=== PATIENT | male | born 1965 | race Caucasian/White ===

== ENCOUNTER 2016-08-08 20:02 | Inpatient (IN) | payer OTHER ==
[~2016-08-08] VITALS: Ht 180.3 cm; Wt 58.3 kg
--- NOTE | ~2016-08-08 | HC ---
[facility] [place] [address] CONSULTATION Name: LILOJASMINE Room #: 211-P [facility]#: [id number] Admission: 08/08/16 Attend Phys: Reyes Gunter MD Discharge: 08/09/16 Date of : 67 Report #: [id number] THIS REPORT FOR: //name// CC: PANDA physician/PCP Reyes Gunter INDICATION: Chest pains. HISTORY OF PRESENT ILLNESS: This is a 51-year-old gentleman presenting with recurrent chest pains. He initially presented on 07/19/2016 with an acute inferior wall UT, undergoing placement of a drug-eluting stent. Last hospitalization was unremarkable. He presented again about 10 days later with recurrent symptoms. He was found to have a subacute stent thrombosis, undergoing angioplasty with placement of another drug-eluting stent. He has a history of hypertension, hypercholesterolemia, and tobacco use. He reports that he is taking his medications. The cause of the subacute stent thrombosis is unclear. There is a question of compliance with his medications. He reports having recurrent symptoms that started yesterday morning. He had discomfort in the chest area, radiating down the left arm. He had associated symptoms of shortness of breath and nausea throughout the day. The first and second troponin is 0.32. It is unclear if this is an abnormal blood test from his last cardiac incident. There is no history of fever, chills, or congestion. PAST MEDICAL HISTORY: Initial UT in 2008, managed at [facility]. As above inferior wall UT on 07/19/2016 and 07/29/2016, hypertension, hypercholesterolemia, continued tobacco use, questionable history of compliance with medications. ALLERGIES: None. MEDICATIONS: Include Effient 10 mg daily, aspirin once a day, quinapril 20 mg daily, Lipitor 80 mg at night, Wellbutrin, Nexium 40 mg daily, metoprolol 25 mg daily. SOCIAL HISTORY: Positive tobacco use, currently smoking a pack a day. FAMILY HISTORY: Negative for premature CAD. REVIEW OF SYSTEMS: A full 10-point review of systems performed. Only the pertinent positives and negatives are described in the HPI. PHYSICAL EXAMINATION: VITAL SIGNS: Blood pressure is 110/60, heart rate is 56 beats per minute. GENERAL APPEARANCE: Disheveled-appearing male in no acute respiratory distress. HEAD AND EYES: Normocephalic. Sclerae are anicteric. ENT: Oral mucosa moist. NECK: Supple. [facility] [address] [place] [address] CONSULTATION Name: JASMINE NAGY David Room #: 211-P [facility]#: [id number] Admission: 08/08/16 Attend Phys: Reyes Gunter MD Discharge: 08/09/16 Date of : 67 Report #: [id number] LUNGS: Clear to auscultation. CARDIAC: Regular rate and rhythm, S1, S2 positive. ABDOMEN: Soft. EXTREMITIES: No major joint deformities. No edema. ECG reveals sinus bradycardia, Q-waves in the inferior leads with nonspecific ST-T wave abnormalities. LABORATORY VALUES: Peak troponin is 0.32. Sodium is 143, creatinine is 0.7. White count 7.3, hemoglobin 14.3. ASSESSMENT: 1. Chest pain syndrome, rule out recurrent ischemia versus noncardiac etiology. His symptoms are the same as his previous presentation. Since he has already exhibited an episode of subacute stent thrombosis, I am concerning that this may be cardiac in etiology. We discussed the pros and cons of a cardiac catheterization. He understands and wishes to proceed. 2. Hypertension. The blood pressure is under control. 3. Hypercholesterolemia, tolerating statin therapy. 4. Tobacco use, complete smoking cessation is again discussed. Thank you for allowing me to participate in the care of your patient. <ELECTRONICALLY SIGNED> By: Boom Fink MD 08/10/16 0833 0836 1029 Boom Fink MD /nt
--- NOTE | ~2016-08-08 | EKG ---
[address] [address] [facility] [place] [address] ELECTROCARDIOGRAM REPORT Name: JASMINE NAGY Room #: 211-P ADM IN M.R.#: [id number] Admission: 08/08/16 Attend Phys: Reyes Gunter MD Discharge: Date of : 67 Report #: [id number] THIS REPORT FOR: //name// [facility] ED Test Date: 2016-08-08 Test Time: 20:07:45 Pat Name: JASMINE NAGY Department: Room: 211 Gender: M Call Center Team Leader: [id number] : 1965 Requested By: Keiry Portillo Order Number: [id number] MD: Иван Shepard Measurements Intervals [place] Rate: 73 P: 81 NC: 161 QRS: 12 QRSD: 118 T: -72 QT: 423 QTc: 467 Interpretive Statements Sinus rhythm Biatrial enlargement LVH with IVCD and secondary repol abnrm Inferior infarct, age indeterminate Electronically Signed On 08-09-2016 8:09:57 RIB KNITTER by Иван Shepard [email or web address] <ELECTRONICALLY SIGNED> By: Иван Shepard MD 08/09/16808 06 06 Иван Shepard MD /SAAD
--- NOTE | ~2016-08-08 | CATHLAB ---
[facility] [address] [employer] [place] [address] INVASIVE PROCEDURE REPORT Name: JASMINE NAGY Room #: 211-P [facility]#: [id number] Admission: 08/08/16 Attend Phys: Reyes Gunter MD Discharge: 08/09/16 Date of : 67 Date of Service: 08/09/16 1533 Report #: [id number] THIS REPORT FOR: //name// CC: [facility] physician/PCP Reyes Gunter INDICATIONS: Unstable angina. Full risks, benefits and alternatives of cardiac catheterization were explained to the patient. All questions were answered. Informed consent was obtained. A Barbeau test was performed on the right radial artery. The right wrist area was prepped and draped in a sterile manner. Lidocaine was given subcutaneously. A 5-Mongolian sheath was inserted into the right radial artery via modified Seldinger technique. Nitroglycerin and verapamil was injected through the sheath. 5000 units of heparin was given through peripheral IV. CORONARY ANATOMY: Left main artery is a large caliber vessel with mild disease in the mid segment. The LAD is a moderate sized caliber vessel, travelling down the anterior wall and wrapping around the apex. The mid segment of the LAD has mild disease, 30%. The first diagonal artery is a moderate size caliber vessel, giving off 2 moderate sized branches, with no flow-limiting lesions. The second diagonal artery is a moderate size caliber vessel, with no flow-limiting lesions. The left circumflex artery gives off one small obtuse marginal artery. There is a moderate to severe proximal stenosis in the first obtuse marginal artery, 60-70%. Medical therapy is recommended. The RCA is a dominant vessel with patent overlapping stents in the distal segment. There is no evidence for restenosis. There is mild disease in the proximal and mid segments of the RCA, 30%. A left ventriculogram was not performed in view of a recent ventriculogram. The LVEDP is approximately 16 mmHg. There is no gradient across the outflow tract. IMPRESSION: 1. Patent stents in the RCA. 2. Moderate to severe stenosis in a small first obtuse marginal artery, unchanged from prior procedures. Recommend medical therapy. [facility] [address] [place] [address] INVASIVE PROCEDURE REPORT Name: JASMINE NAGY David Room #: 211-P [facility] IN [facility].#: [id number] Admission: 08/08/16 Attend Phys: Reyes Gunter MD Discharge: 08/09/16 Date of : 67 Date of Service: 08/09/16 1533 Report #: [id number] 3. Mild disease noted in the LAD and right coronary artery. 4. Recommend medical therapy. <ELECTRONICALLY SIGNED> By: Boom Fink MD 08/10/16 0833 1533 21 Boom Fink MD /rj
--- NOTE | ~2016-08-08 | EKG ---
[address] [address] ELECTROCARDIOGRAM REPORT Name: ANDRA NAGYAKUA Hernandez Room #: 211-P ADM IN M.R.#: [id number] Admission: 08/08/16 Attend Phys: Reyes Gunter MD Discharge: Date of : 67 Report #: [id number] THIS REPORT FOR: //name// [facility] Test Date: 2016-08-09 Test Time: 07:00:45 Pat Name: JASMINE NAGY Department: Room: 211 Gender: M Steam Table Associate: valentin : 1965 Requested By: Keiry Portillo Order Number: [id number] MD: Sushil Hall Measurements Intervals [place] Rate: 56 P: 73 IA: 163 QRS: -5 QRSD: 108 T: -38 QT: 456 QTc: 441 Interpretive Statements Sinus rhythm RSR' in V1 or V2, right VCD or RVH Left ventricular hypertrophy Inferior infarct, age indeterminate Anterior repolarization abnormality Compared to ECG 07/31/2016 07:09:01 No significant change was found Electronically Signed On 08-09-2016 8:12:27 MANAGER TRANSITION by Sushil Hall [email or web address] <ELECTRONICALLY SIGNED> By: Sushil Hall MD, FACC 08/09/16811 9 9 Sushil Hall MD, [facility] /EPI
[~2016-08-08 20:02] MED LIST: ASPIRIN325 PO; ATORVASTATIN CA40 MG PO; EFFIENT10 MG PO; IMDUR 60 MG TAB60 M1 PO; LOPRESSOR25 PO; NEXIUM40 MG PO; NITROGLYCERIN0.4 MG SUBLING; NORVASC 5 MG TAB5 MG PO; PLAVIX 75 MG TA75 M1 PO; QUINAPRIL 20 MG20 MG PO; RANEXA500 MG PO; WELLBUTRIN SR150 MG PO
[2016-08-08 20:04] VITALS: BP 134/83
[2016-08-08 21:12] LABS: HEMATOCRIT 42.8 % (42.0-52.0); HEMOGLOBIN 14.3 gm/dL (14.0-18.0); MCH 29.6 pg (26.0-34.0); MCHC 33.5 % (28.0-37.0); MCV 88.4 fL (80.0-100.0); RBC 4.84 mil/uL (4.50-6.00); RDW 14.6 % (10.5-14.5); WBC 7.3 thou/uL (4.0-11.0)
[2016-08-08 21:29] LABS: CALCIUM 8.5 mg/dL (8.5-10.1); CREATININE 0.7 mg/dL (0.6-1.3); POTASSIUM 3.2 mmol/L (3.5-5.1)
[2016-08-08 21:39] LABS: ALBUMIN 3.5 g/dL (3.4-5.0); TOTAL BILIRUBIN 0.2 mg/dL (<0.1-1.0); TOTAL PROTEIN 7.3 g/dL (6.4-8.2); TROPONIN-I 0.32 ng/mL (<0.04-0.07)
[2016-08-08 22:30] VITALS: BP 108/65
[2016-08-08 22:50] VITALS: BP 114/75
[2016-08-09 04:08] VITALS: BP 116/71
[2016-08-09 04:09] LABS: CALCIUM 8.3 mg/dL (8.5-10.1); CREATININE 0.7 mg/dL (0.6-1.3); MAGNESIUM 2.4 mg/dL (1.8-2.4); POTASSIUM 3.6 mmol/L (3.5-5.1)
[2016-08-09 07:20] VITALS: BP 138/89
[2016-08-09 11:00] VITALS: BP 115/72
[2016-08-09 13:11] LABS: TSH 0.8 uIU/mL (0.450-4.500)
[2016-08-09 16:00] VITALS: BP 118/68
[2016-08-09 16:19] VITALS: BP 115/72
[2016-08-09 18:23] VITALS: BP 115/72
[2016-09-17] MEDS ORDERED: ULTRAM 50MG TAB50 MG PO (22:36)
[2016-09-17] MEDS ORDERED: KEFLEX500 MG PO (22:37)
[2016-09-26] MEDS ORDERED: NORCO 5-325 TA1 EACH PO (21:57)
[2016-10-06] MEDS ORDERED: RANEXA500 MG PO (10:25)
== END 2016-08-09 18:22 | disposition home or self-care (01) | DRG 206 ==
LOC: ER 20:02 → 2N 22:19 → EROBS 22:19 → 2N 22:30 → ER 22:30 → 2N 23:11
PROVIDERS: Nurse Practitioner; Physician Assistant
PROC: B2111ZZ Fluoroscopy of Multiple Coronary Arteries using Low Osmolar Contrast (ICD-10-PCS; principal; 2016-08-09)
PROC: 4A023N7 Measurement of Cardiac Sampling and Pressure, Left Heart, Percutaneous Approach (ICD-10-PCS; principal; 2016-08-09)
DX: M94.0 Chondrocostal junction syndrome [Tietze] (principal); J44.9 Chronic obstructive pulmonary disease, unspecified; I25.10 Atherosclerotic heart disease of native coronary artery without angina pectoris; I11.9 Hypertensive heart disease without heart failure; F17.210 Nicotine dependence, cigarettes, uncomplicated; E78.00 Pure hypercholesterolemia, unspecified; E78.5 Hyperlipidemia, unspecified; E87.6 Hypokalemia; I25.2 Old myocardial infarction; Z79.899 Other long term (current) drug therapy
CPT/HCPCS: 10081

== ENCOUNTER 2016-08-16 16:11 | Inpatient (IN) | payer OTHER ==
[~2016-08-16] VITALS: Ht 180.3 cm; Wt 61.1 kg
--- NOTE | ~2016-08-16 | H ---
[facility] [place] [address] HISTORY AND PHYSICAL Name: JASMINE NAGY David Room #: 456-P [facility] IN ..#: [id number] Admission: 08/16/16 Attend Phys: Dylan Laguna MD Discharge: 08/19/16 Date of : 67 Report #: [id number] THIS REPORT FOR: //name// CC: Dylan Laguna Luz Ortizkraig DATE OF SERVICE: 08/16/2016 TYPE OF DICTATION: Admission H and P after [id number]-prcc encounter. CHIEF COMPLAINT: Chest pain. HISTORY OF PRESENT ILLNESS: The patient is a 51-year-old male who had non-STEMI in July and had a stent placed to the distal dominant right coronary artery on 07/19/2016. The patient was again re-admitted on July 29 for recurrent chest pain and was taken to the catheterization lab. He was noted to have restenosis from the thrombus to the RCA stent and according to cardiology notes the restenosis was dilated and the patient's chest pain resolved and he was sent home, but he came for the third time on August 09 with chest pain and was admitted to the hospital and his chest pain was cleared with normal troponins. Now, he is coming with chest pain, retrosternal, which started this morning, pressure in nature, radiating to the left arm. He says that he is short of breath all the time, but no sweating. The patient denies any nausea, vomiting, diarrhea or constipation. REVIEW OF SYSTEMS: Except that mentioned in HPI, all other systems are negative. PAST MEDICAL HISTORY: Includes: 1. Acute inferior wall myocardial infarction, status post stents. 2. Hypertension. 3. Hyperlipidemia. PAST SURGICAL HISTORY: 1. Stents placed in the coronary artery. 2. Prior eye surgery. SOCIAL HISTORY: He is a tobacco user. No alcohol or drugs. FAMILY HISTORY: Noncontributory. MEDICATIONS: See admission reconciliation sheet. ALLERGIES: No known drug allergies. LABORATORY DATA: From today, his white count is 5.7, hemoglobin 14.8, [facility] [address] [place] [address] HISTORY AND PHYSICAL Name: JASMINE NAGY Room #: 456-P [facility].#: [id number] Admission: 08/16/16 Attend Phys: Dylan Laguna MD Discharge: 08/19/16 Date of : 67 Report #: [id number] hematocrit 44.1, platelets 326, BMP is normal. First troponin is negative. ProBNP is 483, creatinine 0.9. Chest x-ray is clear. Electrocardiogram showed old infarction. PHYSICAL EXAMINATION: GENERAL: He is alert, oriented, not in acute distress. VITAL SIGNS: Temperature 36.7, pulse 61, respirations 17 and blood pressure 114/87. HEENT: PERRLA. Intact extraocular muscles. No icterus. NECK: Supple, no JVD, no bruit, no thyroid. CHEST: Good air entry, both sides. Normal respiratory effort. CARDIOVASCULAR: Regular rate and rhythm. No murmur, rub or gallop. ABDOMEN: Lax, nontender, positive bowel sounds, no organomegaly appreciated. NEUROLOGIC: Cranial nerves 2-12 are intact. No focal neurological signs. ASSESSMENT AND PLAN: 1. Chest pain. The patient is going to be admitted to telemetry. Serial troponin and EKGs are going to be done and cardiology were going to see the patient in the morning. We are going to continue his home medicines for now and giving him aspirin. 2. Hypertension, seems to be controlled. Continue home medicines. 3. Hyperlipidemia. Continue statins for now. 4. The patient is full code. 5. Gastrointestinal and deep venous thrombosis prophylaxis. <ELECTRONICALLY SIGNED> By: Dylan Laguna MD 08/25/16 0900 1808 1833 Dylan Laguna MD /nt
--- NOTE | ~2016-08-16 | EKG ---
[address] [address] ELECTROCARDIOGRAM REPORT Name: JASMINE NAGY David Room #: 160-1 ADM IN M.R.#: [id number] Admission: 08/16/16 Attend Phys: Dylan Laguna MD Discharge: Date of : 67 Report #: [id number] THIS REPORT FOR: //name// [facility] Test Date: 2016-08-17 Test Time: 06:48:23 Pat Name: JASMINE NAGY Department: Room: 160 Gender: M Foot Caster: . : 1965 Requested By: Dylan Laguna Order Number: [id number] MD: Sushil Hall Measurements Intervals [place] Rate: 53 P: 0 DE: 171 QRS: 4 QRSD: 110 T: -48 QT: 458 QTc: 430 Interpretive Statements Sinus bradycardia Inferior infarct, age indeterminate Compared to ECG 08/16/2016 16:20:54 No significant change was found Electronically Signed On 08-17-2016 7:59:29 HAIR CUTTER by Sushil Hall [email or web address] <ELECTRONICALLY SIGNED> By: Sushil Hall MD, [facility] 08/17/16 0759 Sushil Hall MD, [facility] /EPI
--- NOTE | ~2016-08-16 | P ---
[facility] [place] [address] PROCEDURE REPORT Name: JASMINE NAGY David Room #: 456-P [facility]..#: [id number] Admission: 08/16/16 Attend Phys: Dylan Laguna MD Discharge: 08/19/16 Date of : 67 Report #: [id number] THIS REPORT FOR: //name// CC: Dylan Veronica MD DATE OF SERVICE: 08/19/2016 PROCEDURE: Diagnostic EGD. Patient of Dr. Laguna. INDICATION FOR PROCEDURE: This procedure is being done to evaluate the patient's chest pain. It appears that he has no evidence of any cardiac disease that would explain his chest pain. He has been on antiplatelet medications up until yesterday, so he really cannot take any biopsies if we find anything, but evaluation is being undertaken to see if there is an esophageal etiology of this chest pain. Informed consent for this procedure was obtained prior to the administration of any medication. The risks of the procedure which include bleeding, perforation, infection, complications of sedation and the possibility I could miss something have been explained to the patient. He has indicated his consent by signing. Propofol was slowly titrated before and during this procedure for patient comfort by the anesthesia service. The MyFabn upper videoscope was introduced through the upper esophageal sphincter and advanced under direct visualization to the descending duodenum. Findings are noted on withdrawal of the scope. The entire duodenum shows scattered erosions and edema as well as erythema. No biopsies are taken as the patient has been on antiplatelet drugs. Stomach, diffuse erosive gastritis is noted. It is worse distally. No biopsies were taken. I suspect the patient does have a sliding hiatal hernia. Scope was withdrawn into the esophagus. The Z line is located at 42 cm and is very irregular. I suspect he may have Gutierrez's ectopic mucosa, but will not biopsy it today because of his antiplatelet drugs. Above the Z line, the mucosa lining of the esophagus appears normal. It does not appear to be hyperspastic in any way. The scope was withdrawn. The patient went to the recovery area in stable condition. He tolerated the procedure well. IMPRESSION: 1. Erosive gastroduodenitis. 2. Suspect hiatal hernia. This may be the etiology of his chest pain. 3. 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 [facility] [address] [place] [address] PROCEDURE REPORT Name: JASMINE NAGY David Room #: 456-P [facility]#: [id number] Admission: 08/16/16 Attend Phys: Dylan Laguna MD Discharge: 08/19/16 Date of : 67 Report #: [id number] RECOMMENDATIONS: To add Carafate slurry 1 gram p.o. a.c. and at bedtime. We will start him on a soft diet. We will repeat an EGD when he can be off his antiplatelet medications for a few days, so we could biopsy the distal esophagus to check the Gutierrez's esophagus for dysplasia. Thank you very much once again for allowing me to participate in his care, Dr. Laguna and Dr. Veronica. <ELECTRONICALLY SIGNED> By: Kareen Austin DO 08/19/162023 1213 1338 Kareen Austin DO /nt
--- NOTE | ~2016-08-16 | EKG ---
[address] [address] ELECTROCARDIOGRAM REPORT Name: JASMINE NAGY David Room #: 160-1 ADM IN M.R.#: [id number] Admission: 08/16/16 Attend Phys: Dylan Laguna MD Discharge: Date of : 67 Report #: [id number] THIS REPORT FOR: //name// [facility] Test Date: 2016-08-17 Test Time: 05:52:52 Pat Name: JASMINE NAGY Department: Room: 160 Gender: M Community Relations Police Lieutenant: bronwyn : 1965 Requested By: Dylan Laguna Order Number: [id number] MD: Sushil Hall Measurements Intervals [place] Rate: 50 P: 43 MI: 175 QRS: 10 QRSD: 99 T: -41 QT: 477 QTc: 435 Interpretive Statements Sinus bradycardia Inferior infarct, recent Compared to ECG 08/16/2016 16:20:54 No significant change was found Electronically Signed On 08-17-2016 7:58:44 RESPONDER by Sushil Hall [email or web address] <ELECTRONICALLY SIGNED> By: Sushil Hall MD, [facility] 08/17/16 0758 0552 0552 Sushil Hall MD, [facility] /EPI
--- NOTE | ~2016-08-16 | EKG ---
[address] [address] [place] [address] ELECTROCARDIOGRAM REPORT Name: JASMINE NAGY Room #: REG [facility]#: [id number] Admission: 08/16/16 Attend Phys: Discharge: Date of : 67 Report #: [id number] THIS REPORT FOR: //name// [facility] Test Date: 2016-08-16 Test Time: 16:20:54 Pat Name: JASMINE NAGY Department: Room: Gender: Vp Analytics: Jaqui ZAMORANO : 1965 Requested By: Ralph Woods Order Number: [id number] MD: Иван Shepard Measurements Intervals [place] Rate: 63 P: 29 [place]: 149 QRS: -3 QRSD: 101 T: -57 QT: 440 QTc: 451 Interpretive Statements Sinus rhythm RSR' in V1 or V2, probably normal variant Left ventricular hypertrophy Inferior infarct, age indeterminate ST elevation,likely early repolarization Electronically Signed On 08-16-2016 17:27:04 GUNITE MIXER by Иван Shepard [email or web address] <ELECTRONICALLY SIGNED> By: Иван Shepard MD 08/16/16 1727 1620 19 Иван Shepard MD /SAAD
--- NOTE | ~2016-08-16 | HC ---
[facility] [place] [address] CONSULTATION Name: JASMINE NAGY David Room #: 456-P [facility]..#: [id number] Admission: 08/16/16 Attend Phys: Dylan Laguna MD Discharge: 08/19/16 Date of : 67 Report #: [id number] THIS REPORT FOR: //name// CC: Dylan Laguna Luz Ortizuri DATE OF SERVICE: 08/16/2016 REASON FOR CONSULTATION: Chest pain with ECG changes. HISTORY OF PRESENT ILLNESS: This is a 51-year-old gentleman who has been admitted to the hospital every week for the last 3 weeks for his chest discomforts. He has had a stent re-occlusion previously and although he denies missing his medications, stent had been apparently well deployed previously. He had been discharged home and had been doing well for less than a week, when he started having chest discomfort 2 days prior to admission. He says this radiated into the left arm. The patient stated that this was at least a 5-7/10 and had been fairly constant. He did eat some spicy foods on that morning, but he does take Nexium already. He denies any orthopnea or PND. No fever, chills or night sweats. PAST MEDICAL HISTORY: Significant for: 1. Coronary artery disease, status post stenting, both in the LAD and in the right coronary artery. 2. Hypertension. 3. COPD. PAST SURGICAL HISTORY: Significant for: 1. Eye surgery. 2. Jaw surgery. ALLERGIES: No known drug allergies. MEDICATIONS AT HOME: Effient 10 mg daily, Nexium, quinapril, atorvastatin, Wellbutrin, Lopressor, Nitrostat p.r.n. and aspirin. SOCIAL HISTORY: The patient is a former smoker. He consumes alcohol socially. He does not follow particular exercise regimen or dietary restriction. FAMILY HISTORY: Significant for coronary artery disease. LABORATORY DATA: Noted and reviewed in the chart. Pertinent labs in the records have a BUN and creatinine of 18 and 0.9, potassium 3.9. H and H are 14.8 and 44.1. Initial troponin is at less than 0.04. ELECTROCARDIOGRAM: Sinus rhythm, slightly more prominent ST-segment elevation [facility] [address] [place] [address] CONSULTATION Name: JASMINE NAGY Room #: 456-[facility] IN [facility].#: [id number] Admission: 08/16/16 Attend Phys: Dylan Laguna MD Discharge: 08/19/16 Date of : 67 Report #: [id number] in the epicardial leads. RADIOLOGIC: Chest x-ray fails to demonstrate any acute processes. REVIEW OF SYSTEMS: Except for symptoms previously mentioned and those commensurate with comorbid state, the 10-point review of system is negative. PHYSICAL EXAMINATION: GENERAL: A well-developed white male, in moderate distress (6-7/10 pain). VITAL SIGNS: Noted and reviewed in the chart. HEENT: Normocephalic, atraumatic. Pupils are equal, round, reactive to light and accommodation. Extraocular muscles are intact. Sclerae and conjunctivae are anicteric. NECK: JVD is normal. Carotid upstrokes are bilaterally symmetrical. No bruits are heard. No thyromegaly. No lymphadenopathy. LUNGS: Clear to auscultation. No wheezes, rhonchi or crackles. No CVA tenderness. CARDIAC: Demonstrates a regular rhythm. Normal first and second heart sounds. No ventricular or atrial gallops, no rubs noted. No murmurs. No lifts or heaves, PMI normal. ABDOMEN: Soft, nontender, nondistended. Normal bowel sounds. EXTREMITIES: Without cyanosis, clubbing or edema. Distal pulses are intact. DTR symmetrical. NEUROLOGIC: Cranial nerves 2-12 are grossly normal and symmetrical. PSYCHIATRIC: Alert, oriented with normal affect. SKIN: Warm and dry. IMPRESSION: 1. Individual with significant coronary artery disease. It had been mentioned previously by cardiology that he had not been consistent in taking his medications, but the patient states he has. Either way, he has some slight changes in his ST segments. He has recurrent symptomatology and although his troponins were negative, we are going to need to evaluate to make sure that there is no restenosis once again. We will proceed directly with angiography. Risks, complications and alternatives of cath, angioplasty and conscious sedation were discussed with the patient, who understands and wishes to proceed. 2. Hypertension. This may be an issue with the symptoms. I am going to discuss with the patient proceeding with blood pressure checks at home so that we can be certain that those are not a factor in the symptomatology. <ELECTRONICALLY SIGNED> By: Norm Walls MD 08/20/16 1154 1058 1308 Norm Walls MD /nt
--- NOTE | ~2016-08-16 | CATHLAB ---
[facility] Waqas [place] [address] INVASIVE PROCEDURE REPORT Name: JASMINE NAGY Room #: 456-P [facility]#: [id number] Admission: 08/16/16 Attend Phys: Dylan Laguna, Discharge: 08/19/16 Date of : 67 Date of Service: 08/20/16 0720 Report #: [id number] THIS REPORT FOR: //name// CC: Dylan Herreranica Glenys DATE OF SERVICE: 08/17/2016 LEFT HEART CATHETERIZATION INDICATIONS: This is an 51-year-old male patient with previous stenting and stent reocclusion last 2 weeks, presents with unstable angina with slight J-point elevation and ST-segment elevation on ECG. PROCEDURES: 1. Left heart catheterization. 2. Selective right and left coronary angiography. 3. Measurement of left ventricular end-diastolic pressures. 4. Supervision of conscious sedation. CASEY SAW OPERATOR: Norm Walls M.D. BRIEF DESCRIPTION OF PROCEDURE: After informed consent was obtained, the patient was brought to the cardiac catheterization laboratory in stable condition. The patient's right groin was prepped and draped in the usual sterile manner after which lidocaine was then instilled. Utilizing a modified Seldinger technique, the right femoral artery was then accessed. Under fluoroscopic visualization using selective coronary catheters, the right and left coronaries were opacified and visualized. The left ventriculogram was likewise imaged per standard protocol with EDP being measured. Subsequent to this, the sheath was removed, hemostasis achieved. The patient tolerated the procedure well. There were no complications. FINDINGS: 1. HEMODYNAMICS: a. Preprocedure aortic pressure 142/75. b. Left ventricular end-diastolic pressures of 22-25. 2. FLUOROSCOPY: Under fluoroscopic visualization, there was evidence of prior stents in place as well as epicardial coronary artery calcifications. 3. ANGIOGRAPHY: This is a right coronary dominant system. a. Left main is of normal origin and caliber, has luminal irregularities of 30% throughout its course, with no obstructive lesions present. b. Left anterior descending is a moderate-caliber to small-caliber type 3 vessel which courses in the anterior interventricular sulcus. It gives rise to septal perforators and diagonal branches which are also small and have only moderate stenosis noted. A small second diagonal branch has approximately 70% [facility] [address] [place] [address] INVASIVE PROCEDURE REPORT Name: JASMINE NAGY Room #: 456-P [facility]#: [id number] Admission: 08/16/16 Attend Phys: Dylan Laguna, Discharge: 08/19/16 Date of : 67 Date of Service: 08/20/16 0720 Report #: [id number] ostial and proximal lesion, after which it reconstitutes itself. This vessel is less than 1 mm in diameter. The LAD courses tapering to a small string-appearing vessel as it hooks the apex and terminates in the bifurcating vessel in the posterior apical wall. c. Left circumflex is a small non-dominant vessel, which has a marginal branch which is less than 1 mm in diameter and has proximal 80%-90% stenosis. d. Right coronary artery is of normal origin and caliber, proceeds in the AV groove with luminal irregularities of less than 40%. It then proceeds beyond the acute marginal where the stent is widely patent and non-flow limiting. There is no thrombus noted. It continues on giving rise to posterior descending artery, which is ruhyp-tj-ybkzufzh in caliber with luminal irregularities present. The distal right coronary artery is a diminutive vessel with moderate nonobstructive lesions. IMPRESSION: 1. Coronary artery disease, status post stenting with patent stents, but with diminutive vessel with lesions noted in these. 2. Abnormal hemodynamics. <ELECTRONICALLY SIGNED> By: Norm Walls MD 08/20/16 1152 0720 1003 Norm Walls MD /nt
--- NOTE | ~2016-08-16 | EKG ---
[address] [place] [address] ELECTROCARDIOGRAM REPORT Name: JASMINE NAGY David Room #: 160-1 ADM IN M.R.#: [id number] Admission: 08/16/16 Attend Phys: Dylan Laguna MD Discharge: Date of : 67 Report #: [id number] THIS REPORT FOR: //name// [facility] Test Date: 2016-08-16 Test Time: 21:19:51 Pat Name: JASMINE NAGY Department: Room: 160 Gender: M Hull And Deck Remover: Grace STEVE : 1965 Requested By: Dylan Laguna Order Number: [id number] MD: Sushil Hall Measurements Intervals [place] Rate: 49 P: 30 [place]: 172 QRS: -6 QRSD: 104 T: -48 QT: 479 QTc: 433 Interpretive Statements Sinus bradycardia Probable left ventricular hypertrophy Inferior infarct, recent Compared to ECG 08/16/2016 16:20:54 No significant change was found Electronically Signed On 08-17-2016 7:48:13 OBSTETRICS GYNECOLOGY MD by Sushil Hall [email or web address] <ELECTRONICALLY SIGNED> By: Sushil Hall MD, [facility] 08/17/16 0748 18 18 Sushil Hall MD, [facility] /EPI
[2016-08-16 16:12] VITALS: BP 123/71
[2016-08-16 16:30] LABS: ABSOLUTE NEUTROPHILS 3.2 thou/uL (1.4-8.2); BASOPHILS 0.4 % (0.0-2.0); EOSINOPHILS 3.6 % (0.0-3.0); HEMATOCRIT 44.1 % (42.0-52.0); HEMOGLOBIN 14.8 gm/dL (14.0-18.0); LYMPHOCYTES 31.5 % (24.0-44.0); MCH 30.3 pg (26.0-34.0); MCHC 33.6 % (28.0-37.0); MCV 90.3 fL (80.0-100.0); MONOCYTES 8.9 % (1.0-8.0); PLATELET COUNT 326 thou/uL (150-400); POLYS 55.6 % (36.0-66.0); RBC 4.88 mil/uL (4.50-6.00); RDW 14.9 % (10.5-14.5); WBC 5.7 thou/uL (4.0-11.0)
[2016-08-16 16:35] LABS: MANUAL DIFF NO
[2016-08-16 16:40] LABS: ANION GAP 10 mmol/L (7-16); BUN 15 mg/dL (7-18); CALCIUM 8.6 mg/dL (8.5-10.1); CHLORIDE 100 mmol/L (98-107); CO2 27 mmol/L (21-32); CREATININE 0.9 mg/dL (0.6-1.3); GLUCOSE 108 mg/dL (70-99); POTASSIUM 3.9 mmol/L (3.5-5.1); SODIUM 137 mmol/L (136-145)
[2016-08-16 16:53] LABS: NT-PRO BRAIN NAT PEPTIDE 483 pg/mL (<300); TROPONIN-I < 0.04 ng/mL (<0.04-0.07)
[2016-08-16 19:12] VITALS: BP 115/77
[2016-08-16 20:42] VITALS: BP 135/75
[2016-08-16 23:56] VITALS: BP 98/65
[2016-08-17] VITALS (11 sets, daily range): BP systolic 106–142; BP diastolic 60–100
[2016-08-17 04:42] LABS: HEMATOCRIT 43.7 % (42.0-52.0); HEMOGLOBIN 14.3 gm/dL (14.0-18.0); MCH 30.1 pg (26.0-34.0); MCHC 32.8 % (28.0-37.0); MCV 91.7 fL (80.0-100.0); RBC 4.76 mil/uL (4.50-6.00); RDW 14.7 % (10.5-14.5); WBC 5.8 thou/uL (4.0-11.0)
[2016-08-17 05:00] LABS: ALBUMIN 3.3 g/dL (3.4-5.0); CALCIUM 8.4 mg/dL (8.5-10.1); CREATININE 0.9 mg/dL (0.6-1.3); POTASSIUM 4.4 mmol/L (3.5-5.1); TOTAL BILIRUBIN 0.3 mg/dL (<0.1-1.0); TOTAL PROTEIN 6.6 g/dL (6.4-8.2)
[2016-08-18 05:26] LABS: ABSOLUTE NEUTROPHILS 5.1 thou/uL (1.4-8.2); EOSINOPHILS 2.5 % (0.0-3.0); HEMOGLOBIN 13.6 gm/dL (14.0-18.0); LYMPHOCYTES 23.1 % (24.0-44.0); MCH 30.2 pg (26.0-34.0); MCHC 33.2 % (28.0-37.0); MCV 90.8 fL (80.0-100.0); MONOCYTES 7.6 % (1.0-8.0); PLATELET COUNT 287 thou/uL (150-400); POLYS 65.8 % (36.0-66.0); RBC 4.52 mil/uL (4.50-6.00); RDW 15.4 % (10.5-14.5); WBC 7.8 thou/uL (4.0-11.0)
[2016-08-18 05:40] LABS: MANUAL DIFF NO
[2016-08-18 06:19] LABS: ALBUMIN 3.3 g/dL (3.4-5.0); CALCIUM 8.4 mg/dL (8.5-10.1); CREATININE 0.9 mg/dL (0.6-1.3); POTASSIUM 4.6 mmol/L (3.5-5.1); TOTAL BILIRUBIN 0.3 mg/dL (<0.1-1.0); TOTAL PROTEIN 6.6 g/dL (6.4-8.2)
[2016-08-18 07:56] VITALS: BP 106/69
[2016-08-18 11:29] VITALS: BP 106/69
[2016-08-18 15:48] VITALS: BP 106/54
[2016-08-18 19:51] VITALS: BP 101/54
[2016-08-19 04:40] VITALS: BP 107/60
[2016-08-19 07:15] VITALS: BP 117/67
[2016-08-19 13:15] VITALS: BP 124/81
[2016-08-19 14:15] VITALS: BP 124/81
[2016-09-17] MEDS ORDERED: ULTRAM 50MG TAB50 MG PO (22:36)
[2016-09-17] MEDS ORDERED: KEFLEX500 MG PO (22:37)
[2016-09-26] MEDS ORDERED: NORCO 5-325 TA1 EACH PO (21:57)
[2016-10-06] MEDS ORDERED: RANEXA500 MG PO (10:25)
== END 2016-08-19 15:07 | disposition home or self-care (01) | DRG 392 ==
LOC: ER 16:11 → 4W 18:01 → EROBS 18:01 → 4W 18:58 → TBACV 08-17 07:27 → 4W 08-17 10:03
PROVIDERS: Hospitalist; Internal Medicine; Nurse Practitioner; Nurse Practitioner Family
PROC: 4A023N7 Measurement of Cardiac Sampling and Pressure, Left Heart, Percutaneous Approach (ICD-10-PCS; principal; 2016-08-17)
PROC: B2111ZZ Fluoroscopy of Multiple Coronary Arteries using Low Osmolar Contrast (ICD-10-PCS; principal; 2016-08-17)
PROC: 0DJ08ZZ Inspection of Upper Intestinal Tract, Via Natural or Artificial Opening Endoscopic (ICD-10-PCS; 2016-08-19)
DX: K29.90 Gastroduodenitis, unspecified, without bleeding (principal); I24.9 Acute ischemic heart disease, unspecified; K22.4 Dyskinesia of esophagus; K21.9 Gastro-esophageal reflux disease without esophagitis; J44.9 Chronic obstructive pulmonary disease, unspecified; I25.10 Atherosclerotic heart disease of native coronary artery without angina pectoris; E78.5 Hyperlipidemia, unspecified; I11.0 Hypertensive heart disease with heart failure; I50.9 Heart failure, unspecified; K29.00 Acute gastritis without bleeding; Z79.82 Long term (current) use of aspirin; Z79.899 Other long term (current) drug therapy; Z87.891 Personal history of nicotine dependence; Z95.5 Presence of coronary angioplasty implant and graft; Z28.21 Immunization not carried out because of patient refusal; Z82.49 Family history of ischemic heart disease and other diseases of the circulatory system; K44.9 Diaphragmatic hernia without obstruction or gangrene
CPT/HCPCS: 10045; 62110; 62900; 70005

== ENCOUNTER 2016-11-08 17:38 | Emergency (ER) | payer OTHER ==
[~2016-11-08] VITALS: Ht 180.3 cm; Wt 63.5 kg
--- NOTE | ~2016-11-08 | EKG ---
[place] [address] [address] [facility] [place] [address] ELECTROCARDIOGRAM REPORT Name: JASMINE NAGY David [id number] Admission: 11/08/16 Attend Phys: Discharge: 11/08/16 Date of : 67 Report #: [id number] THIS REPORT FOR: //name// [facility] ED Test Date: 2016-11-08 Test Time: 17:43:54 Pat Name: JASMINE NAGY Department: Room: Gender: Mule Spinner: Jaqui ZAMORANO : 1965 Requested By: Hu Dubois Order Number: [id number] MD: Sushil Hall Measurements Intervals [place] Rate: 85 P: 81 [place]: 163 QRS: 29 QRSD: 104 T: -32 QT: 370 QTc: 440 Interpretive Statements Sinus rhythm Right atrial enlargement Probable left ventricular hypertrophy Inferior infarct, age indeterminate Compared to ECG 10/06/2016 06:44:34 Atrial abnormality now present Electronically Signed On 11-09-2016 7:41:09 CDT by Sushil Hall [email or web address] <ELECTRONICALLY SIGNED> By: Sushil Hall MD, [facility] 11/09/16 0741 42 42 Sushil Hall MD, [facility] /EPI
--- NOTE | ~2016-11-08 | EKG ---
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 11/09/16 0744 47 47 Sushil Hall MD, [facility] /EPI
[~2016-11-08 17:38] MED LIST changes: +KEFLEX500 MG PO; +NORCO 5-325 TA1 EACH PO; +ULTRAM 50MG TAB50 MG PO
[2016-11-08 18:06] LABS: ABSOLUTE NEUTROPHILS 5.3 thou/uL (1.4-8.2); BASOPHILS 1.3 % (0.0-2.0); EOSINOPHILS 3.3 % (0.0-3.0); HEMATOCRIT 40.9 % (42.0-52.0); HEMOGLOBIN 14.1 gm/dL (14.0-18.0); LYMPHOCYTES 23.6 % (24.0-44.0); MCH 30.6 pg (26.0-34.0); MCHC 34.4 g/dL (28.0-37.0); MCV 88.9 fL (80.0-100.0); PLATELET COUNT 256 thou/uL (150-400); POLYS 66.8 % (36.0-66.0); RDW 14.5 % (10.5-14.5); WBC 7.9 thou/uL (4.0-11.0)
[2016-11-08 18:11] LABS: MANUAL DIFF NO
[2016-11-08 18:16] LABS: ANION GAP 10 mmol/L (7-16); BUN 16 mg/dL (7-18); CALCIUM 8.4 mg/dL (8.5-10.1); CHLORIDE 99 mmol/L (98-107); CO2 25 mmol/L (21-32); CREATININE 0.9 mg/dL (0.7-1.3); GLUCOSE 131 mg/dL (74-106); POTASSIUM 3.1 mmol/L (3.5-5.1); SODIUM 134 mmol/L (136-145)
[2016-11-08 18:23] LABS: ALBUMIN 3.6 g/dL (3.4-5.0); ALKALINE PHOSPHATASE 86 U/L (46-116); MAGNESIUM 1.8 mg/dL (1.8-2.4); SGOT 22 U/L (15-37); SGPT 29 U/L (30-65); TOTAL BILIRUBIN 0.3 mg/dL (<0.1-1.0); TOTAL PROTEIN 6.9 g/dL (6.4-8.2); TROPONIN-I < 0.04 ng/mL (<0.04-0.07)
== END 2016-11-08 21:12 | disposition home or self-care (01) ==
LOC: ER 17:38
PROVIDERS: Emergency Medicine
DX: R07.9 Chest pain, unspecified (principal); J44.9 Chronic obstructive pulmonary disease, unspecified; I25.10 Atherosclerotic heart disease of native coronary artery without angina pectoris; I10 Essential (primary) hypertension; I25.2 Old myocardial infarction; Z95.5 Presence of coronary angioplasty implant and graft

== ENCOUNTER 2017-01-11 18:51 | Inpatient (IN) | payer OTHER ==
[~2017-01-11] VITALS: Ht 180.3 cm; Wt 60.3 kg
--- NOTE | ~2017-01-11 | EKG ---
[address] [place] [address] ELECTROCARDIOGRAM REPORT Name: JASMINE NAGY Room #: 219-P ADM IN M.R.#: [id number] Admission: 01/11/17 Attend Phys: Cindy Wiggins Discharge: Date of : 67 Report #: [id number] THIS REPORT FOR: //name// [facility] Test Date: 2017-01-12 Test Time: 06:46:46 Pat Name: JASMINE NAGY Department: Room: 219 P Gender: M Electromechanic: valentin : 1965 Requested By: Breanna Avina Order Number: [id number] MD: Sushil Hall Measurements Intervals [place] Rate: 60 P: 49 IN: 155 QRS: 35 QRSD: 99 T: -16 QT: 437 QTc: 437 Interpretive Statements Sinus rhythm Left ventricular hypertrophy Possible Inferior infarct, age indeterminate Baseline wander in lead(s) V1 Compared to ECG 01/11/2017 18:54:28 No significant changes Electronically Signed On 01-12-2017 8:45:32 CDT by Sushil Hall [email or web address] <ELECTRONICALLY SIGNED> By: Sushil Hall MD, [facility] 01/12/17 0845 0646 Sushil Hall MD, [facility] /EPI
--- NOTE | ~2017-01-11 | H ---
[facility] [place] [address] HISTORY AND PHYSICAL Name: JASMINE NAGY Room #: 219-P [facility] IN ..#: [id number] Admission: 01/11/17 Attend Phys: Cindy Wiggins Discharge: 01/12/17 Date of : 67 Report #: [id number] THIS REPORT FOR: //name// CC: Cindy Veronica ATTENDING PHYSICIAN: Dr. Wiggins. PRIMARY CARE PHYSICIAN: Dr. Luz Veronica. CHIEF COMPLAINT: Chest pain. HISTORY OF PRESENT ILLNESS: The patient is a 52-year-old male with a history of coronary artery disease. He was seen initially back in July 2016, when he had a ST elevation NE and underwent catheterization with a stent placed to the RCA. He then came back a week later with chest pain and another inferior wall NE and in that he had another catheterization at that time, which showed in-stent restenosis. They were not sure if he had been taking his Effient as prescribed. He came back in August again with chest pain and was cathed another 2 times on August 09 as well as August 17 for recurrent chest pain. His RCA stents were patent at that time, but there is moderate to severe stenosis of the small right obtuse marginal, which was unchanged from previous. He has been back at home doing well. During that last admission, they had started him on Ranexa and he continues to take aspirin and Effient. He says he has been compliant with taking his medications. Since he was last admitted in September, he has not seen Cardiology in followup, but he did see his primary care physician. He states that around 3:00 p.m., he started having some right-sided chest pain, which radiated into his right arm. This was after he was playing with his grandkids. He did take some nitroglycerin at home and his pain went away. His pain came back later in the evening and he tried a few more doses of nitroglycerin, but his pain really was not letting up, so he came into the ER. He has had a GI evaluation within his chest pain workup over the course of the last year. 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 At one point, he had been prescribed Carafate, but he does not think he ever started it. He does take heartburn medications p.r.n., but does not take anything consistently. Overall, he is a poor historian and really does not know what all his medications are for. He currently rates his chest pain 4/10 and would like some pain medication. PAST MEDICAL HISTORY: Coronary artery disease with prior MIs, COPD, hypertension, hyperlipidemia, blindness in the left eye, GERD, and gastritis. PAST SURGICAL HISTORY: Coronary stent times 3, eye surgery, jaw repair. ALLERGIES: None. HOME MEDICATIONS: Effient 10 mg p.o. daily, Ranexa 500 mg b.i.d., Lipitor [address] [address] HISTORY AND PHYSICAL Name: JASMINE NAGY David Room #: 219-P [facility] IN M.R.#: [id number] Admission: 01/11/17 Attend Phys: Cindy Wiggins Discharge: 01/12/17 Date of : 67 Report #: [id number] at bedtime, nitro p.r.n., metoprolol 25 mg p.o. daily, quinapril 20 mg p.o. daily, aspirin 325 mg p.o. daily and bupropion 150 mg b.i.d. SOCIAL HISTORY: The patient is an active smoker. As of August, he had been quitting, but now he says he has actually increased his use and is up to half a pack of cigarettes per day. He has been smoking most of his life and he denies any alcohol use. Denies any drug use. He lives at home with his and daughter. He is on disability. FAMILY HISTORY: Significant for coronary artery disease in his brother and father. His brother also had a CABG in his 40s and from a massive NE at the age of 49. His father had onset of heart disease in his 40s and from renal failure at the age of 61. REVIEW OF SYSTEMS: Twelve-point review of systems was reviewed with the patient, otherwise negative unless stated in the HPI. PHYSICAL EXAMINATION: GENERAL: The patient is an alert male in no acute distress. VITAL SIGNS: Temperature is 36.7, heart rate 76, respirations 17, blood pressure 140/89, oxygen 98% on room air. HEENT: PERRLA. Sclerae is nonicteric. Oral mucosa is pink and moist. NECK: Supple, no JVD noted. CARDIAC: Normal S1, S2. No murmurs, rubs or gallops. RESPIRATORY: Breath sounds are clear bilaterally. No wheezing or rhonchi. Breathing is nonlabored. ABDOMEN: Soft, nontender, nondistended with positive bowel sounds. VASCULAR: No edema noted. Pedal pulses are 2+. NEUROLOGIC: The patient is alert and oriented times 3. Speech is clear. He is moving all extremities equally. PSYCHIATRIC: The patient is calm and cooperative. LABORATORY DATA AND DIAGNOSTICS: WBC is 6.8, hemoglobin 15.6 and platelets 283. Sodium is 135, potassium 3.6, BUN 15, creatinine 1.0. Glucose 73. Troponins negative. Chest x-ray showed no acute findings. EKG showing sinus rhythm with old infarcts. ASSESSMENT AND PLAN: 1. Chest pain. His initial cardiac workup was negative. We will check serial cardiac enzymes, continue to monitor on telemetry. Continue with Effient and aspirin as at home. He does have a history of 4 cardiac catheterizations since July of last year, so Cardiology will be consulted. Check a D-dimer and if elevated, we will do a CT angio of the chest. 2. Gastritis. He is not taking any medications regularly for this. We will resume PPI. 3. Hypertension. Blood pressure is stable, continue home meds and monitor. [facility] [address] [place] [address] HISTORY AND PHYSICAL Name: JASMINE NAGY David Room #: 219-P [facility] IN M.R.#: [id number] Admission: 01/11/17 Attend Phys: Cindy Wiggins Discharge: 01/12/17 Date of : 67 Report #: [id number] 4. Hyperlipidemia. Continue statin therapy. 5. Chronic obstructive pulmonary disease, no signs of exacerbation. Continue with breathing treatments p.r.n. 6. Deep venous thrombosis prophylaxis. Place sequential compression devices. We will continue to follow the patient closely throughout the hospitalization and make changes based on clinical status. <ELECTRONICALLY SIGNED> By: CRISTOPHER Qureshi 01/13/17 0729 0627 0951 CRISTOPHER Qureshi /rj
--- NOTE | ~2017-01-11 | EKG ---
[address] [address] ELECTROCARDIOGRAM REPORT Name: JASMINE NAGY Room #: 219-P ADM IN M.R.#: [id number] Admission: 01/11/17 Attend Phys: Cindy Wiggins Discharge: Date of : 67 Report #: [id number] THIS REPORT FOR: //name// [facility] ED Test Date: 2017-01-11 Test Time: 18:54:28 Pat Name: JASMINE NAGY Department: Room: 219 Gender: M Coupon Collection Clerk: Giovani JUAREZ : 1965 Requested By: Monisha Manzano Order Number: [id number] MD: Иван Shepard Measurements Intervals [place] Rate: 87 P: 57 [place]: 146 QRS: 67 QRSD: 100 T: -25 QT: 381 QTc: 459 Interpretive Statements Sinus rhythm Left ventricular hypertrophy Probable inferior infarct, old ST elevation, similar to prior ekg Compared to ECG 11/08/2016 19:48:47 ST (T wave) deviation now present Myocardial infarct finding still present Electronically Signed On 01-11-2017 22:07:45 CDT by Иван Shepard [email or web address] <ELECTRONICALLY SIGNED> By: Иван Shepard MD 01/11/17 2207 53 53 Иван Shepard MD /EPI
[2017-01-11 18:54] VITALS: BP 153/100
[2017-01-11 19:52] LABS: HEMOGLOBIN 15.6 gm/dL (14.0-18.0); MCH 31.7 pg (26.0-34.0); MCHC 34.7 g/dL (28.0-37.0); MCV 91.6 fL (80.0-100.0); PLATELET COUNT 283 thou/uL (150-400); RBC 4.91 mil/uL (4.50-6.00); RDW 15.3 % (10.5-14.5); WBC 6.8 thou/uL (4.0-11.0)
[2017-01-11 19:53] LABS: MANUAL DIFF YES
[2017-01-11 20:01] LABS: ANION GAP 9 mmol/L (7-16); BUN 15 mg/dL (7-18); CHLORIDE 99 mmol/L (98-107); CO2 27 mmol/L (21-32); GLUCOSE 73 mg/dL (74-106); POTASSIUM 3.6 mmol/L (3.5-5.1); SODIUM 135 mmol/L (136-145)
[2017-01-11 20:10] LABS: TROPONIN-I < 0.04 ng/mL (<0.04-0.07)
[2017-01-11 20:18] LABS: ABSOLUTE NEUTROPHILS 4.4 thou/uL (1.4-8.2); ATYPICAL LYMPHS 7 %; TOTAL CELL COUNT 100
[2017-01-11 20:19] LABS: ANISOCYTOSIS SLIGHT
[2017-01-11 20:50] LABS: APTT 26.8 Seconds (24.5-32.8)
[2017-01-11 20:59] VITALS: BP 137/89
[2017-01-11 21:15] VITALS: BP 162/104
[2017-01-11 22:16] VITALS: BP 143/94
[2017-01-11 23:12] VITALS: BP 146/102
[2017-01-12 04:13] LABS: CHOLESTEROL 167 mg/dL (<200); HDL CHOLESTEROL 69 mg/dL (>40); LDL CHOLESTEROL 69 mg/dL (<100); TC:HDL 2.4 Ratio (Not establshd); TRIGLYCERIDE 147 mg/dL (<150); VLDL 29 mg/dL (<40)
[2017-01-12 04:15] VITALS: BP 134/88
[2017-01-12 04:15] LABS: SERUM ASSESSMENT Clear
[2017-01-12 07:00] VITALS: BP 131/90
[2017-01-12 07:04] VITALS: BP 131/90
[2017-01-12 10:57] VITALS: BP 131/90
[2017-01-12 11:22] VITALS: BP 131/90
[2017-01-12 12:58] VITALS: BP 131/90
== END 2017-01-12 12:30 | disposition home or self-care (01) | DRG 311 ==
LOC: ER 18:51 → 2N 20:31 → EROBS 20:31 → 2N 20:59
PROVIDERS: Emergency Medicine; Nurse Practitioner Acute Care
DX: I24.9 Acute ischemic heart disease, unspecified (principal); J44.9 Chronic obstructive pulmonary disease, unspecified; I10 Essential (primary) hypertension; I25.10 Atherosclerotic heart disease of native coronary artery without angina pectoris; F17.210 Nicotine dependence, cigarettes, uncomplicated; E78.5 Hyperlipidemia, unspecified; K21.9 Gastro-esophageal reflux disease without esophagitis; H54.42 Blindness, left eye, normal vision right eye; K29.70 Gastritis, unspecified, without bleeding; Z79.82 Long term (current) use of aspirin; I25.2 Old myocardial infarction; Z98.62 Peripheral vascular angioplasty status; Z79.899 Other long term (current) drug therapy; Z91.19 Patient's noncompliance with other medical treatment and regimen; Z82.49 Family history of ischemic heart disease and other diseases of the circulatory system; Z84.1 Family history of disorders of kidney and ureter
CPT/HCPCS: 10081

== ENCOUNTER 2017-04-03 20:47 | Observation (INO) | payer OTHER ==
[~2017-04-03] VITALS: Ht 180.3 cm; Wt 60.8 kg
--- NOTE | ~2017-04-03 | H ---
[facility] [place] [address] HISTORY AND PHYSICAL Name: JASMINE NAGY Room #: 207-P [facility] Flynn#: [id number] Admission: 04/03/17 Attend Phys: Eric Tristan MD Discharge: Date of : 67 Report #: [id number] THIS REPORT FOR: //name// CC: PANDA physician/PCP Boom Tristan DATE OF SERVICE: 04/03/2017 HISTORY OF PRESENT ILLNESS: This is a 52-year-old male patient known to ____ [facility] with known coronary artery disease. The patient had been admitted several times for angina with stenting and stent occlusion. He had been doing fairly well for the last numerous months until today when he was walking around the [place] ____ and developed discomfort. The patient said he had a left-sided substernal discomfort similar to what he has had in the past with angina. He stated that he had associated shortness of breath and some nausea, but had no emesis. He had been drinking some alcoholic beverages without improvement of his symptoms. He denies any recent episode of chest discomfort when doing his daily activity and states he has been doing quite well. No fever, chills, night sweats. No exertional symptoms noted. PAST MEDICAL HISTORY: 1. COPD. 2. Coronary artery disease. 3. Hypertension. ALLERGIES: No known drug allergies. PAST SURGICAL HISTORY: 1. Eye surgery. 2. Jaw surgery. 3. Coronary stenting. MEDICATIONS: Quinapril, Lipitor, Wellbutrin, Nexium, Lopressor, Nitrostat p.r.n., aspirin daily. SOCIAL HISTORY: He continues to smoke one pack per day minimum, consumes alcohol. He does not follow particular exercise regimen or dietary restriction. LABORATORY: Demonstrates a BUN and creatinine of 9 and 0.8. Potassium 3.2, which has been supplemented. H and H is 14.7 and 43.3 and platelet count 232,000. RADIOLOGIC: Chest x-ray failed to demonstrate any acute processes. Echocardiogram: Normal sinus rhythm. Non-specific ST-wave changes. No [facility] [address] [place] [address] HISTORY AND PHYSICAL Name: JASMINE NAGY Room #: 207-P [facility] M.R.#: [id number] Admission: 04/03/17 Attend Phys: Eric Tristan MD Discharge: Date of : 67 Report #: [id number] significant changes from prior ECG. REVIEW OF SYSTEMS: Except for symptoms previously mentioned and those commensurate with comorbid state, a 10-point review of systems is negative. PHYSICAL EXAMINATION: GENERAL: A well-developed white male resting comfortably in no acute distress. VITAL SIGNS: Noted and reviewed in the chart. HEENT: Normocephalic, atraumatic. Pupils are equal, round, reactive to light and accommodation. Extraocular muscles are intact. Sclerae and conjunctivae are anicteric. NECK: JVD is normal. Carotid upstrokes are bilaterally symmetrical. No bruits are heard. No thyromegaly. No lymphadenopathy. LUNGS: Clear to auscultation. No wheezes, rhonchi or crackles. No CVA tenderness. CARDIAC: Demonstrates a regular rhythm. Normal first and second heart sounds. No ventricular or atrial gallops, no rubs noted. No murmurs. No lifts or heaves, PMI normal. ABDOMEN: Soft, nontender, nondistended. Normal bowel sounds. EXTREMITIES: Without cyanosis, clubbing or edema. Distal pulses are intact. DTR symmetrical. NEUROLOGIC: Cranial nerves 2-12 are grossly normal and symmetrical. PSYCHIATRIC: Alert, oriented with normal affect. SKIN: Warm and dry. IMPRESSION: 1. Chest pain, currently resolved in an individual who has angina. ____ whether we need to proceed with any diagnostic studies presently. I will keep him n.p.o. after midnight in case Dr. Fink wants to proceed invasively or noninvasively. There is no point in perfusion scanning since we know he has coronary artery disease and lesions. It is not going to be normal at this juncture. 2. Tobacco abuse and dependence. I have discussed smoking cessation with the patient. He does voice understanding, but obviously he is not interested in quitting. 3. Dyslipidemia. Discussed the [place] [employer] step 1 diet with him. <ELECTRONICALLY SIGNED> By: Norm Walls MD 04/05/17 0949 2229 2351 Norm Walls MD /nt
--- NOTE | ~2017-04-03 | EKG ---
[address] [place] [address] ELECTROCARDIOGRAM REPORT Name: JASMINE NAGY Room #: 207-[facility] M..#: [id number] Admission: 04/03/17 Attend Phys: Eric Tristan MD Discharge: Date of : 67 Report #: [id number] THIS REPORT FOR: //name// [facility] ED Test Date: 2017-04-03 Test Time: 20:56:19 Pat Name: JASMINE NAGY Department: Room: 207 Gender: M Neon Sign Installer: TIO : 1965 Requested By: Ralph Woods Order Number: [id number] MD: Sushil Hall Measurements Intervals [place] Rate: 74 P: 7 [place]: 157 QRS: 29 QRSD: 108 T: -19 QT: 388 QTc: 431 Interpretive Statements Sinus rhythm RSR' in V1 or V2, right VCD Inferior infarct, age indeterminate Compared to ECG 01/12/2017 06:46:46 No significant change was found Electronically Signed On 04-05-2017 8:15:59 CDT by Sushil Hall [email or web address] <ELECTRONICALLY SIGNED> By: Sushil Hall MD, [facility] 04/05/17 0815 55 55 Sushil Hall MD, [facility] /EPI
[2017-04-03 20:52] VITALS: BP 132/81
[2017-04-03 21:08] LABS: ABSOLUTE NEUTROPHILS 4.8 thou/uL (1.4-8.2); PLATELET COUNT 232 thou/uL (150-400)
[2017-04-03 21:10] LABS: BASOPHILS 1.7 % (0.0-2.0); EOSINOPHILS 2.8 % (0.0-3.0); HEMATOCRIT 42.3 % (42.0-52.0); HEMOGLOBIN 14.7 gm/dL (14.0-18.0); LYMPHOCYTES 30.3 % (24.0-44.0); MCH 32.5 pg (26.0-34.0); MCHC 34.8 g/dL (28.0-37.0); MCV 93.3 fL (80.0-100.0); MONOCYTES 8.1 % (1.0-8.0); POLYS 57.1 % (36.0-66.0); RBC 4.54 mil/uL (4.50-6.00); RDW 14.8 % (10.5-14.5); WBC 8.5 thou/uL (4.0-11.0)
[2017-04-03 21:12] LABS: MANUAL DIFF NO
[2017-04-03 21:22] LABS: ANION GAP 12 mmol/L (7-16); BUN 9 mg/dL (7-18); CALCIUM 8.8 mg/dL (8.5-10.1); CHLORIDE 102 mmol/L (98-107); CO2 22 mmol/L (21-32); CREATININE 0.8 mg/dL (0.7-1.3); GLUCOSE 71 mg/dL (74-106); POTASSIUM 3.2 mmol/L (3.5-5.1); SODIUM 136 mmol/L (136-145)
[2017-04-03 21:28] LABS: TROPONIN-I < 0.04 ng/mL (<0.04-0.07)
[2017-04-03 23:13] VITALS: BP 108/69
[2017-04-03 23:20] VITALS: BP 106/68
[2017-04-03 23:36] VITALS: BP 120/78
[2017-04-04] MEDS ORDERED: TOPROL XL25 MG PO (00:34)
[2017-04-04 03:20] LABS: HEMATOCRIT 41.8 % (42.0-52.0); MCH 31.9 pg (26.0-34.0); MCHC 33.5 g/dL (28.0-37.0); MCV 95.2 fL (80.0-100.0); RBC 4.39 mil/uL (4.50-6.00); WBC 5.9 thou/uL (4.0-11.0)
[2017-04-04 03:28] LABS: CALCIUM 8.1 mg/dL (8.5-10.1); CREATININE 0.6 mg/dL (0.7-1.3)
[2017-04-04 03:55] VITALS: BP 120/82
[2017-04-04 07:40] VITALS: BP 127/83
[2017-04-04 11:38] VITALS: BP 132/87
[2017-04-04 15:24] VITALS: BP 143/94
[2017-04-04 19:50] VITALS: BP 145/74; BP 164/88
[2017-04-05 04:15] VITALS: BP 141/86
[2017-04-05 07:05] VITALS: BP 153/97
[2017-04-05 11:28] VITALS: BP 153/97
[2017-04-05 11:30] VITALS: BP 151/94
[2017-04-05 13:08] VITALS: BP 153/97
== END 2017-04-05 13:45 | disposition home or self-care (01) ==
LOC: ER 20:47 → EROBS 22:39 → 2N 23:23
PROVIDERS: Nurse Practitioner; Nurse Practitioner Family
DX: R07.89 Other chest pain (principal); F17.210 Nicotine dependence, cigarettes, uncomplicated; J44.9 Chronic obstructive pulmonary disease, unspecified; I25.10 Atherosclerotic heart disease of native coronary artery without angina pectoris; E78.00 Pure hypercholesterolemia, unspecified; I10 Essential (primary) hypertension; Z95.5 Presence of coronary angioplasty implant and graft; Z79.899 Other long term (current) drug therapy; Z79.82 Long term (current) use of aspirin

== ENCOUNTER 2017-04-28 11:08 | Emergency (ER) | payer OTHER ==
[~2017-04-28] VITALS: Ht 180.3 cm; Wt 61.7 kg
--- NOTE | ~2017-04-28 | EKG ---
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: [id number] : 1965 Requested By: Juan Manuel Benito Order Number: [id number] MD: Иван Shepard Measurements Intervals [place] Rate: 64 P: 33 [place]: 163 QRS: 39 QRSD: 101 T: -7 QT: 429 QTc: 443 Interpretive Statements Sinus rhythm RSR' in V1 or V2, right VCD or RVH Left ventricular hypertrophy Inferior infarct, old ST elevation, early repolarization Compared to ECG 04/23/2017 13:47:41 Right ventricular hypertrophy now present Electronically Signed On 04-28-2017 15:46:25 CDT by Иван Shepard [email or web address] <ELECTRONICALLY SIGNED> By: Иван Shepard MD 04/28/17 1546 1227 1227 Иван Shepard MD /EPI
[~2017-04-28 11:08] MED LIST changes: +NAPROSYN500 MG PO; +TOPROL XL25 MG PO
[2017-04-28 11:56] LABS: HEMOGLOBIN 16.9 gm/dL (14.0-18.0); MCH 33.2 pg (26.0-34.0); MCHC 35.1 g/dL (28.0-37.0); MCV 94.7 fL (80.0-100.0); PLATELET COUNT 261 thou/uL (150-400); RBC 5.07 mil/uL (4.50-6.00); RDW 14.5 % (10.5-14.5); WBC 4.2 thou/uL (4.0-11.0)
[2017-04-28 11:58] LABS: ANION GAP 7 mmol/L (7-16); BUN 5 mg/dL (7-18); CALCIUM 8.7 mg/dL (8.5-10.1); CHLORIDE 99 mmol/L (98-107); CO2 26 mmol/L (21-32); CREATININE 0.7 mg/dL (0.7-1.3); GLUCOSE 94 mg/dL (74-106); SODIUM 132 mmol/L (136-145)
[2017-04-28 12:04] LABS: MANUAL DIFF YES
[2017-04-28 12:08] LABS: ALKALINE PHOSPHATASE 83 U/L (46-116); SGOT 39 U/L (15-37); SGPT 25 U/L (30-65); TOTAL BILIRUBIN 0.7 mg/dL (<0.1-1.0); TOTAL PROTEIN 7.7 g/dL (6.4-8.2); TROPONIN-I < 0.04 ng/mL (<0.04-0.07)
[2017-04-28 12:21] LABS: ABSOLUTE NEUTROPHILS 1.9 thou/uL (1.4-8.2); PLATELET ESTIMATE NORMAL; TOTAL CELL COUNT 100
[2017-04-28 13:02] LABS: URINE BILIRUBIN NEGATIVE (Negative); URINE BLOOD NEGATIVE (Negative); URINE COLOR YELLOW; URINE GLUCOSE-RANDOM* NEGATIVE (Negative); URINE KETONES NEGATIVE (Negative); URINE LEUKOCYTES-REFLEX NEGATIVE (Negative); URINE PROTEIN (DIPSTICK) NEGATIVE (Negative); URINE SPECIFIC GRAVITY <= 1.005 (1.003-1.035); URINE UROBILINOGEN 0.2 E.U./dl (0.2-1.0)
[2017-04-28 13:04] LABS: AMP/METHAMP Negative (Negative); BARBITURATES Negative (Negative); BENZODIAZEPINES Negative (Negative); COCAINE Negative (Negative); METHADONE Negative (Negative); OPIATES Negative (Negative); PCP Negative (Negative); THC Negative (Negative)
== END 2017-04-28 13:41 | disposition home or self-care (01) ==
LOC: ER 11:08
PROVIDERS: Physician Assistant
DX: R53.1 Weakness (principal); J44.9 Chronic obstructive pulmonary disease, unspecified; I25.10 Atherosclerotic heart disease of native coronary artery without angina pectoris; I10 Essential (primary) hypertension; I25.2 Old myocardial infarction; F17.210 Nicotine dependence, cigarettes, uncomplicated; F10.99 Alcohol use, unspecified with unspecified alcohol-induced disorder

== ENCOUNTER 2017-08-18 15:22 | Emergency (ER) | payer OTHER ==
[~2017-08-18] VITALS: Ht 180.3 cm; Wt 81.7 kg
--- NOTE | ~2017-08-18 | EKG ---
[address] [place] [address] ELECTROCARDIOGRAM REPORT Name: JASMINE NAGY Room #: [facility] Flynn#: [id number] Admission: 08/18/17 Attend Phys: Discharge: Date of : 67 Report #: [id number] THIS REPORT FOR: //name// [facility] ED Test Date: 2017-08-18 Test Time: 15:27:27 Pat Name: JASMINE NAGY Department: Room: Gender: Outreach Manager: Nicole SAHU RN : 1965 Requested By: Monisha Manzano Order Number: [id number] MD: Иван Shepard Measurements Intervals [place] Rate: 71 P: 8 [place]: 159 QRS: 51 QRSD: 95 T: -7 QT: 373 QTc: 406 Interpretive Statements Sinus rhythm Probable left ventricular hypertrophy Inferior infarct, age indeterminate Compared to ECG 05/23/2017 09:04:52 No significant changes Electronically Signed On 08-18-2017 16:09:19 FILTER BED PLACER by Иван Shepard [email or web address] <ELECTRONICALLY SIGNED> By: Иван Shepard MD 08/18/17 1609 1527 26 Иван Shepard MD /SAAD
[2017-08-18 16:04] LABS: HEMATOCRIT 44.3 % (42.0-52.0); HEMOGLOBIN 15.1 gm/dL (14.0-18.0); MCH 31.8 pg (26.0-34.0); MCHC 34.2 g/dL (28.0-37.0); MCV 92.9 fL (80.0-100.0); PLATELET COUNT 248 thou/uL (150-400); RBC 4.77 mil/uL (4.50-6.00); RDW 13.1 % (10.5-14.5); WBC 9.7 thou/uL (4.0-11.0)
[2017-08-18 16:12] LABS: ANION GAP 6 mmol/L (7-16); BUN 14 mg/dL (7-18); CHLORIDE 100 mmol/L (98-107); CO2 28 mmol/L (21-32); CREATININE 0.9 mg/dL (0.7-1.3); GLUCOSE 92 mg/dL (74-106); SODIUM 134 mmol/L (136-145)
[2017-08-18 16:21] LABS: TROPONIN-I < 0.04 ng/mL (<0.06)
[2017-08-18 16:43] LABS: ABSOLUTE NEUTROPHILS 7.9 thou/uL (1.4-8.2); ANISOCYTOSIS 1+
[2017-08-18] MEDS ORDERED: ATORVASTATIN CA40 MG PO (17:56)
[2017-08-18] MEDS ORDERED: QUINAPRIL 20 MG20 MG PO (17:56)
[2017-08-18 18:35] VITALS: BP 132/74
[2018-05-22] MEDS ORDERED: ULTRACET TABLET1 TAB PO (10:38)
== END 2017-08-18 18:35 | disposition home or self-care (01) ==
LOC: ER 15:22
PROVIDERS: Emergency Medicine
DX: R07.9 Chest pain, unspecified (principal); F17.210 Nicotine dependence, cigarettes, uncomplicated; I10 Essential (primary) hypertension; J44.9 Chronic obstructive pulmonary disease, unspecified; I25.10 Atherosclerotic heart disease of native coronary artery without angina pectoris; Z98.890 Other specified postprocedural states

== ENCOUNTER 2017-11-10 22:47 | Inpatient (IN) | payer OTHER ==
[~2017-11-10] VITALS: Ht 180.3 cm; Wt 61.0 kg
--- NOTE | ~2017-11-10 | 2DMMODE ---
[facility] [address] [place] [address] 2 D/M-MODE ECHOCARDIOGRAM Name: JASMINE NAGY Room #: 457-P [facility] IN [facility]#: [id number] Admission: 11/11/17 Attend Phys: Stephon Willoughby, Discharge: Date of : 67 Date of Service: 11/11/17 1053 Report #: [id number] THIS REPORT FOR: //name// APPROVED REPORT Study performed: 11/11/2017 08:58:48 EXAM: Comprehensive 2D, Doppler, and color-flow Echocardiogram Patient Location: Bedside Room #: [facility] Status: routine BSA: 1.76 HR: 70 bpm BP: 146/84 mmHg Other Information Study Quality: Good Indications COPD CAD Chest Pain Hypertension/HDD 2D Dimensions RVDd: 32.34 mm LVEF(%): 49.75 (>50%) IVSd: 10.62 (7-11mm) LVOT Diam: 21.12 (18-24mm) LVDd: 47.89 mm PWd: 11.36 (7-11mm) Ascending Ao: 33.87 (22-36mm) LVDs: 35.81 (25-40mm) Aortic Root: 31.70 mm IVC: 16.00 mm Murray's LVEF: 49.75 % Volumes Left Atrial Volume (Systole) Single Plane 4CH: 38.79 mL Single Plane 2CH: 24.74 mL LA ESV Index: 19.00 mL/m2 Aortic Valve AoV Peak Vinicius.: 1.24 m/s AO Peak Gr.: 6.16 mmHg LVOT Max P.77 mmHg LVOT Max V: 1.20 m/s KARUNA Vmax: 3.[address] [facility] [place] [address] 2 D/M-MODE ECHOCARDIOGRAM Name: LILOJASMINE L Room #: 457-P [facility] IN [facility].#: [id number] Admission: 11/11/17 Attend Phys: Stephon Willoughby, Discharge: Date of : 67 Date of Service: 11/11/17 1053 Report #: [id number] E/A Ratio: 1.3 MV Decel. Time: 249.43 ms MV E Max Vinicius.: 0.87 m/s MV A Vinicius.: 0.66 m/s MV PHT: 72.33 ms IVRT: 96.89 ms Pulmonary Valve PV Peak Vinicius.: 0.77 m/s PV Peak Gr.: 2.44 mmHg Pulmonary Vein P Vein S: 0.35 m/s P Vein A: 0.33 m/s P Vein D: 0.33 m/s P Vein A Dur.: 129.2 msec P Vein S/D Ratio: 1.06 Left Ventricle The left ventricle is normal size. Hypokinesis of the mid to basal inferior wall. There is normal left ventricular wall thickness. The left ventricular systolic function is low-normal. LVEF is 50%. The left ventricular diastolic function is normal. Right Ventricle The right ventricle is normal size. The right ventricular systolic function is normal. Atria The left atrium size is normal. The right atrium size is normal. Aortic Valve The aortic valve is normal in structure. No aortic regurgitation is present. There is no aortic valvular stenosis. Mitral Valve The mitral valve is normal in structure. There is no mitral valve regurgitation noted. No evidence of mitral valve stenosis. Tricuspid Valve The tricuspid valve is normal in structure. There is no tricuspid valve regurgitation noted. Pulmonic Valve The pulmonary valve is normal in structure. There is no pulmonic valvular regurgitation. [place] [id number] 2 D/M-MODE ECHOCARDIOGRAM Name: JASMINE NAGY Room #: 457-P [facility] IN ..#: [id number] Admission: 11/11/17 Attend Phys: Stephon Willoughby, Discharge: Date of : 67 Date of Service: 11/11/17 1053 Report #: [id number] The aortic root is normal in size. IVC is normal in size and collapses >50% with inspiration. Pericardium There is no pericardial effusion. <Conclusion> The left ventricle is normal size. There is normal left ventricular wall thickness. The left ventricular systolic function is low-normal. Hypokinesis of the mid to basal inferior wall. The right ventricle is normal size. The left atrium size is normal. There is no aortic valvular stenosis. There is no mitral valve regurgitation noted. There is no tricuspid valve regurgitation noted. <ELECTRONICALLY SIGNED> By: Boom Fink MD 11/11/17 1053 1053 1053 Boom Fink MD /INF
--- NOTE | ~2017-11-10 | EKG ---
[address] [place] [address] ELECTROCARDIOGRAM REPORT Name: JASMINE NAGY Room #: 457-P ADM IN M.R.#: [id number] Admission: 11/11/17 Attend Phys: Stephon Willoughby DO Discharge: Date of : 67 Report #: [id number] THIS REPORT FOR: //name// [facility] ED Test Date: 2017-11-10 Test Time: 23:13:59 Pat Name: JASMINE NAGY Department: Room: [facility] Gender: M Levi [place] [facility] [place] 1965 Requested By: Aidan Bailey Order Number: [id number] MD: Sushil Hall Measurements Intervals [place] Rate: 64 P: 22 [place]: 159 QRS: 28 QRSD: 104 T: 3 QT: 433 QTc: 447 Interpretive Statements Sinus rhythm RSR' in V1 or V2, right VCD Left ventricular hypertrophy Inferior infarct, old Compared to ECG 08/18/2017 15:27:27 No significant change was found Electronically Signed On 11-11-2017 8:28:31 CDT by Sushil Hall [email or web address] <ELECTRONICALLY SIGNED> By: Sushil Hall MD, [facility] 11/11/17 0828 2313 2313 Sushil Hall MD, [facility] /EPI
--- NOTE | ~2017-11-10 | HC ---
[facility] [place] [address] CONSULTATION Name: JASMINE NAGY David Room #: 457-P [facility]..#: [id number] Admission: 11/11/17 Attend Phys: Stephon Willoughby DO Discharge: 11/11/17 Date of : 67 Report #: [id number] THIS REPORT FOR: //name// CC: PANDA physician/PCP Stephon Willoughby DATE OF SERVICE: 11/11/2017 INDICATION: Chest pain. HISTORY OF PRESENT ILLNESS: This is a 52-year-old gentleman with a history of CAD, presenting with chest pains. He has a prior history of stent to the diagonal artery at another institution. In July 2016, he presented with an inferior wall MS, undergoing placement of a stent to the RCA. About 10 days later, he presented with an inferior wall MS, with thrombus within the stent, possibly related to noncompliance with medications. Angioplasty was again performed. Since then, he has had 2 more cardiac catheterizations, revealing patent stents with no occlusive disease. During 2017, he has had multiple presentations with atypical chest pains, troponin levels were all negative. The patient reports having substernal chest discomfort radiating down the left arm, lasting for 30 minutes. He is noncompliant, not taking any of his medications. He continues to smoke, at least 1 pack of cigarettes per day. There is no history of fever, chills, vomiting or diarrhea. PAST MEDICAL HISTORY: Outlined above. CAD with stent placement in July 2016. Multiple hospitalizations for chest pains, troponin levels have been negative. Appears to be pain medication seeking. History with noncompliance. History of hypertension, hyperlipidemia and COPD. ALLERGIES: None. MEDICATIONS: None. SOCIAL HISTORY: Positive tobacco use, 1 pack per day. FAMILY HISTORY: Negative for premature CAD. REVIEW OF SYSTEMS: A full 10-point review of systems performed. Only the pertinent positives and negatives are described in the HPI. PHYSICAL EXAMINATION: VITAL SIGNS: Blood pressure is 140/80, heart rate is 60 beats per minute. GENERAL APPEARANCE: This is a well-developed, well-nourished male in no acute respiratory distress. HEAD AND EYES: Normocephalic. Sclerae are anicteric. [facility] [address] [place] [address] CONSULTATION Name: JASMINE NAGY David Room #: 457-P [facility]#: [id number] Admission: 11/11/17 Attend Phys: Stephon Willoughby DO Discharge: 11/11/17 Date of : 67 Report #: [id number] ENT: Oral mucosa moist. NECK: Supple, no JVD. LUNGS: Clear to auscultation. CARDIAC: Regular rate and rhythm, S1, S2 positive. ABDOMEN: Soft, nontender. EXTREMITIES: No cyanosis, no edema. ECG reveals sinus rhythm, inferior wall MS, no acute ST segment changes. LABORATORY VALUES: Three sets of troponin levels are negative. ASSESSMENT AND PLAN: 1. Chest pain syndrome, unlikely to be ischemic since the ECG is unremarkable and serial troponin levels are negative. May be due to GI or musculoskeletal etiology. He has had multiple hospital admissions for similar complaints, improved with analgesics. 2. Coronary artery disease/stent, noncompliant with medications. He will need to resume aspirin, beta [place]ol[place] and nitrates. 3. Hypertension, as above. 4. Hypercholesterolemia, resume statin therapy. 5. Tobacco use, complete smoking cessation is advised. 6. Noncompliance, I discussed with him the importance of compliance with medications and followup. No cardiac testing is indicated at this time until he remains compliant with his medications. His symptoms are atypical and not suggestive for coronary artery disease. <ELECTRONICALLY SIGNED> By: Boom Fink MD 11/14/17 0802 0854 1149 Boom Fink MD /nt
[2017-11-10 22:53] VITALS: BP 128/84
[2017-11-10 23:24] LABS: ANION GAP 14 mmol/L (7-16); BUN 10 mg/dL (7-18); CALCIUM 8.9 mg/dL (8.5-10.1); CHLORIDE 103 mmol/L (98-107); CO2 25 mmol/L (21-32); CREATININE 0.8 mg/dL (0.7-1.3); GLUCOSE 96 mg/dL (74-106); POTASSIUM 3.1 mmol/L (3.5-5.1); SODIUM 142 mmol/L (136-145)
[2017-11-10 23:25] LABS: ABSOLUTE NEUTROPHILS 3.6 thou/uL (1.4-8.2); BASOPHILS 0.6 % (0.0-2.0); EOSINOPHILS 4.2 % (0.0-3.0); HEMATOCRIT 46.9 % (42.0-52.0); HEMOGLOBIN 15.9 gm/dL (14.0-18.0); LYMPHOCYTES 37.4 % (24.0-44.0); MCH 30.3 pg (26.0-34.0); MCHC 33.9 g/dL (28.0-37.0); MCV 89.2 fL (80.0-100.0); MONOCYTES 7.2 % (1.0-8.0); PLATELET COUNT 258 thou/uL (150-400); POLYS 50.6 % (36.0-66.0); RBC 5.26 mil/uL (4.50-6.00); RDW 15.3 % (10.5-14.5); WBC 7.2 thou/uL (4.0-11.0)
[2017-11-10 23:33] LABS: ALBUMIN 4.1 g/dL (3.4-5.0); SGOT 23 U/L (15-37); SGPT 22 U/L (30-65); TOTAL BILIRUBIN 0.5 mg/dL (<0.1-1.0); TOTAL PROTEIN 7.9 g/dL (6.4-8.2); TROPONIN-I < 0.04 ng/mL (<0.06)
[2017-11-11 01:28] VITALS: BP 147/85
[2017-11-11 01:56] VITALS: BP 126/72
[2017-11-11 03:12] VITALS: BP 150/74
[2017-11-11 05:53] LABS: ANION GAP 9 mmol/L (7-16); BUN 9 mg/dL (7-18); CALCIUM 8.6 mg/dL (8.5-10.1); CHLORIDE 105 mmol/L (98-107); CO2 28 mmol/L (21-32); CREATININE 0.8 mg/dL (0.7-1.3); GLUCOSE 93 mg/dL (74-106); SODIUM 142 mmol/L (136-145); TROPONIN-I < 0.04 ng/mL (<0.06)
[2017-11-11 05:59] LABS: CHOLESTEROL 136 mg/dL (<200); HDL CHOLESTEROL 63 mg/dL (>40); LDL CHOLESTEROL 53 mg/dL (<100); POTASSIUM 4.3 mmol/L (3.5-5.1); TC:HDL 2.2 Ratio (Not establshd); TRIGLYCERIDE 103 mg/dL (<150); VLDL 21 mg/dL (<40)
[2017-11-11 06:01] LABS: SERUM ASSESSMENT Clear
[2017-11-11 08:27] VITALS: BP 146/84
[2017-11-11] MEDS ORDERED: ASPIRIN325 PO (09:20)
[2017-11-11] MEDS ORDERED: QUINAPRIL 20 MG20 MG PO (09:20)
[2017-11-11] MEDS ORDERED: NITROGLYCERIN0.4 MG SUBLING (09:20)
[2017-11-11] MEDS ORDERED: ATORVASTATIN CA40 MG PO (09:20)
[2017-11-11 14:15] VITALS: BP 146/84
== END 2017-11-11 17:05 | disposition home or self-care (01) | DRG 313 ==
LOC: ER 22:47 → EROBS 11-11 01:00 → 4W 11-11 01:00 → ENTRNSPT 11-11 14:28 → EDTRNSPTSTS 11-11 14:31 → 4W 11-11 17:05
PROVIDERS: Emergency Medicine; Nurse Practitioner Family
DX: R07.9 Chest pain, unspecified (principal); I10 Essential (primary) hypertension; E78.5 Hyperlipidemia, unspecified; I25.10 Atherosclerotic heart disease of native coronary artery without angina pectoris; J44.9 Chronic obstructive pulmonary disease, unspecified; K21.9 Gastro-esophageal reflux disease without esophagitis; F17.210 Nicotine dependence, cigarettes, uncomplicated; E78.00 Pure hypercholesterolemia, unspecified; Z82.49 Family history of ischemic heart disease and other diseases of the circulatory system; Z84.1 Family history of disorders of kidney and ureter; Z91.14 Patient's other noncompliance with medication regimen; I25.2 Old myocardial infarction; Z79.82 Long term (current) use of aspirin; Z79.899 Other long term (current) drug therapy; Z95.5 Presence of coronary angioplasty implant and graft
CPT/HCPCS: 10045

== ENCOUNTER 2017-12-15 20:51 | Inpatient (IN) | payer OTHER ==
[~2017-12-15] VITALS: Ht 180.3 cm; Wt 63.0 kg
--- NOTE | ~2017-12-15 | HC ---
[facility] [address] CONSULTATION Name: JASMINE NAGY David Room #: 212-P [facility]#: [id number] Admission: 12/15/17 Attend Phys: Gerson Turner MD Discharge: 12/17/17 Date of : 67 Report #: [id number] THIS REPORT FOR: //name// CC: Norm Veronica HISTORY OF PRESENT ILLNESS: This is a 52-year-old male patient with known coronary artery disease. The patient has undergone stenting in the past and had been seen for chest discomfort within the last several months. His perfusion scan at that point was negative for ischemic burden. The patient developed substernal pressure sensation that caused him to be brought to the Emergency Room, was associated with shortness of breath, which is more prominent than before. The patient said he took nitroglycerin with some improvement, but nothing significant. Blood pressure had been elevated at that time greater than 200 systolic. Upon questioning, the patient states that he has not been having any exertional tightness, heaviness or fullness since his discharge before. When questioned, he is not on dual antiplatelet therapy and sometimes does miss his medications. He does have an elevated alcohol content at this admission. Unfortunately, his troponins were elevated at greater than 5, which was different than prior admissions. He continues to smoke and is not following a significant reduction in fat in his diet. He does not exercise regularly. Denies any syncope, near syncope, or palpitations. PAST MEDICAL HISTORY: Significant for: 1. Coronary artery disease as stated above, status post interventions in 07/2016 with restenosis acutely 10 days later. Angiographies in 08/2016 without high-grade lesions. 2. COPD. 3. Hypertension. 4. Alcohol use. 5. Tobacco dependence. PAST SURGICAL HISTORY: Significant for: 1. History of eye surgery. 2. Jaw surgery. 3. Coronary interventions as stated above. SOCIAL HISTORY: The patient smokes. He does not follow a particular diet regimen, dietary restriction. He does consume alcohol. MEDICATIONS: Aspirin 325 at home, quinapril 20 daily, nitroglycerin p.r.n., atorvastatin 40 daily. ALLERGIES: No known drug allergies. FAMILY HISTORY: Significant for hypercholesterolemia, hypertension. [facility] [address] [place] [address] CONSULTATION Name: JASMINE NAGY David Room #: 212-P [facility].#: [id number] Admission: 12/15/17 Attend Phys: Gerson Turner MD Discharge: 12/17/17 Date of : 67 Report #: [id number] ELECTROCARDIOGRAM: Normal sinus rhythm, nonspecific ST-T wave changes. ARNAV heart score is 7. REVIEW OF SYSTEMS: Except for symptoms previously mentioned and those commensurate with comorbid state, the 10-point review of system is negative. PHYSICAL EXAMINATION: GENERAL: Well-developed, well-nourished white male, resting comfortably in no acute distress. VITAL SIGNS: Noted and reviewed in the chart. HEENT: Normocephalic, atraumatic. Pupils are equal, round, reactive to light and accommodation. Extraocular muscles are intact. Sclerae and conjunctivae are anicteric. NECK: JVD is normal. Carotid upstrokes are bilaterally symmetrical. No bruits are heard. No thyromegaly. No lymphadenopathy. LUNGS: Clear to auscultation. No wheezes, rhonchi or crackles. No CVA tenderness. CARDIAC: Demonstrates a regular rhythm. Normal first and second heart sounds. No ventricular or atrial gallops, no rubs noted. No murmurs. No lifts or heaves, PMI normal. ABDOMEN: Soft, nontender, nondistended. Normal bowel sounds. EXTREMITIES: Without cyanosis, clubbing or edema. Distal pulses are intact. DTR symmetrical. NEUROLOGIC: Cranial nerves 2-12 are grossly normal and symmetrical. PSYCHIATRIC: Alert, oriented with normal affect. SKIN: Warm and dry. IMPRESSION: 1. Chest pains with positive troponins in an individual that is not modifying his risk factors as well as continuing to smoke. In view of this, I discussed options. He already had a negative perfusion scan within the last month or so and we will need further diagnostic studies. In view of this, I am going to proceed with angiography. The risks, complications and alternatives to cath, angioplasty, conscious sedation have been discussed with the patient. He voices understanding and wishes to proceed. 2. Hypertension. We will monitor blood pressures carefully and make sure that we optimize his treatment plan. 3. Tobacco abuse and dependence. I discussed several options and techniques that have been successful with former patients of mine and with patients of mine. He does voice understanding, but I suspect he is not interested in [address] [place] [address] CONSULTATION Name: JASMINE NAGY Room #: 212-P [facility] IN M.R.#: [id number] Admission: 12/15/17 Attend Phys: Gerson Turner MD Discharge: 12/17/17 Date of : 67 Report #: [id number] cessation of smoking. 4. Alcohol use, elevated alcohol levels. <ELECTRONICALLY SIGNED> By: Norm Walls MD 12/21/17 1632 0948 192 Norm Walls MD /nt
--- NOTE | ~2017-12-15 | EKG ---
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 : 1965 Requested By: Juan Manuel Benito Order Number: [id number] MD: Иван Shepard Measurements Intervals [place] Rate: 63 P: 38 SC: 147 QRS: 41 QRSD: 101 T: -48 QT: 429 QTc: 440 Interpretive Statements Sinus rhythm RSR' in V1 or V2, right VCD or RVH Probable left ventricular hypertrophy Inferior infarct, age indeterminate Compared to ECG 11/10/2017 23:13:59 Right ventricular hypertrophy now present Myocardial infarct finding still present Electronically Signed On 12-16-2017 8:04:56 CDT by Иван Shepard [email or web address] <ELECTRONICALLY SIGNED> By: Иван Shepard MD 12/16/17 0804 21 21 Иван Shepard MD /EPI
--- NOTE | ~2017-12-15 | EKG ---
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 : 1965 Requested By: Juan Manuel Benito Order Number: [id number] MD: Иван Shepard Measurements Intervals [place] Rate: 58 P: 37 [place]: 155 QRS: 37 QRSD: 99 T: -37 QT: 425 QTc: 418 Interpretive Statements Sinus rhythm Atrial premature complex RSR' in V1 or V2, right VCD or RVH Inferior infarct, age indeterminate Lateral leads are also involved Compared to ECG 11/10/2017 23:13:59 Atrial premature complex(es) now present Right ventricular hypertrophy now present Left ventricular hypertrophy no longer present Myocardial infarct finding still present Electronically Signed On 12-16-2017 8:04:19 CDT by Иван Shepard [email or web address] <ELECTRONICALLY SIGNED> By: Иван Shepard MD 12/16/17803 21 21 Иван Shepard MD /EPI
--- NOTE | ~2017-12-15 | EKG ---
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 : 1965 Requested By: Juan Manuel Benito Order Number: [id number] MD: Иван Shepard Measurements Intervals [place] Rate: 54 P: 73 [place]: 159 QRS: 64 QRSD: 101 T: -40 QT: 513 QTc: 487 Interpretive Statements Sinus rhythm Atrial premature complex Probable left atrial enlargement Left ventricular hypertrophy Probable inferior infarct, old Compared to ECG 11/10/2017 23:13:59 Atrial premature complex(es) now present Myocardial infarct finding still present Electronically Signed On 12-16-2017 8:04:31 CDT by Иван Shepard [email or web address] <ELECTRONICALLY SIGNED> By: Иван Shepard MD 12/16/17 0804 04 04 Иван Shepard MD /EPI
--- NOTE | ~2017-12-15 | EKG ---
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 : 1965 Requested By: Breanna Avina Order Number: [id number] MD: Иван Shepard Measurements Intervals [place] Rate: 65 P: 46 [place]: 155 QRS: 40 QRSD: 102 T: -36 QT: 430 QTc: 448 Interpretive Statements Sinus rhythm Atrial premature complex Probable left ventricular hypertrophy Inferoposterior infarct, recent Compared to ECG 11/10/2017 23:13:59 Atrial premature complex(es) now present Myocardial infarct finding still present Electronically Signed On 12-16-2017 8:07:23 CDT by Иван Shepard [email or web address] <ELECTRONICALLY SIGNED> By: Иван Shepard MD 12/16/17 0807 0745 Иван Shepard MD /EPI
--- NOTE | ~2017-12-15 | CATHLAB ---
[facility] [address] [place] [address] INVASIVE PROCEDURE REPORT Name: LILOJASMINE David Room #: 212-P [facility] IN [facility]#: [id number] Admission: 12/15/17 Attend Phys: Gerson Turner, Discharge: 12/17/17 Date of : 67 Date of Service: 12/19/17 1708 Report #: [id number] THIS REPORT FOR: //name// APPROVED REPORT Study performed: 12/16/2017 12:36:43 Patient Details Patient Status: In-Patient Room #: The patient is a 52 year-old male Event Personnel Norm Walls Correspondence Representative, Nancy Vargas, Favio Michelle Knisely, Ceola RN bilingual research interviewer Performed Art Access - R femoral artery* 62254 Initial Mod Sed Same Phys/QHP Gr5y 749483 27029 Mod Sed Same Phys/QHP Ea 484590 Coronary Angiography Only 4023447 CORANG CHIP Place w/wo Plasty Single PDA 462831 Hemostasis w/ Mynx, supervision of conscious sedation Indication Non-STEMI (>24 hrs to = 48 hrs), Chest pain Procedure Narrative The patient was brought urgently to the Cardiac Catheterization Laboratory and was prepped and draped in a sterile manner. The Right Groin^ was infiltrated with 1% Lidocaine subcutaneous anesthesia. A PINNACLE 6FR Sheath #[id number] sheath was inserted into the RFA^. Coronary angiography was performed using coronary diagnostic catheters. The right coronary system was accessed and visualized with a LAUNCHER 6FR JR 4 #[id number] catheter. The left coronary system was accessed and visualized with a JL 4 catheter. Pre-demployment femoral angiogram was performed . Closure device was deployed with a 6 Fr Mynx. The patient tolerated the procedure well and there were no complications associated with the procedure. There was no hematoma. Intraoperative Conscious Sedation Sedation start time: 13:05 Case end Time: 14:04 Versed 1.5 mg Fluoro Time: 23.12 minutes [facility] [address] [place] [address] INVASIVE PROCEDURE REPORT Name: JASMINE NAGY David Room #: 212-P [facility]#: [id number] Admission: 12/15/17 Attend Phys: Gerson Turner, Discharge: 12/17/17 Date of : 67 Date of Service: 12/19/17 1708 Report #: [id number] Dose: DAP 14546.20 cGycm2 1716 mGy Contrast Type and Amount: Omnipaque 150 ml Coronary Angiography The patient's coronary anatomy is right dominant. Diagnostic Cath Left Main Normal origin and caliber bifurcates left anterior descending left circumflex free of significant high-grade stenosis although there is luminal irregularities noted. LAD Moderate caliber vessel which courses in the anterior interventricular sulcus giving rise to diagonal and septal branches. In its mid course is a region that appears to be eccentric approximately 50% stenosed. Appears to be after the stent was does not seem to have any significant restenosis but flow continues without any significant limitations to the apex at work terminates as a smaller caliber vessel Diagonal 1 Small-caliber vessel courses in the anterior interventricular sulcus free of significant high-grade disease Circumflex All caliber vessel proceeds posteriorly AV groove. Use as several marginal branches of first of which is less than half a millimeter in diameter and has a significant lesion is proximal course but it does reconstitutes without any significant further stenosis. The circumflex continues on with this second marginal branches and third marginal branches which are free of high-grade lesions although luminal irregularities are noted OM1 Moderate caliber may actually be a early ramus but no high-grade lesions are noted other luminal irregularities are present Right Coronary Water calibered normal origin and has luminal irregularities in its proximal course. Is completely occluded at a mid RCA stent. The distal right coronary vessel is filling via imvj-uc-untnu collaterals. R PDA Visualized with retrograde filling from [id number]-rs-[id number] injections Left Ventriculography Left Ventriculography was not performed. Hemodynamics The aortic pressure is 120/68 mmHg with a mean of mmHg. PCI Technique Intervention was then deemed appropriate and the right side was already in place. Utilizing a 014 wire which was then advanced and positioned distal to the stent a thrombectomy catheter was then [facility] [address] [place] [address] INVASIVE PROCEDURE REPORT Name: JASMINE NAGY Room #: 212-P [facility] IN .R.#: [id number] Admission: 12/15/17 Attend Phys: Gerson Turner, Discharge: 12/17/17 Date of : 67 Date of Service: 12/19/17 0053 Report #: [id number] advanced up. Thrombectomy was attempted with some limited success. Subsequent to this a balloon was then advanced and dilated multiple locations to reestablish flow. ADA and distal circulation wasn't visualized antegrade. The stent itself was of maximally we dilated with excellent results but the lesion at the juncture of the distal RCA and PDA was noted. The distal RCA also fill via retrograde filling and was quite small in size compared to the posterior descending artery was felt that salvage in the posterior descending artery was most appropriate. Sequential stents within placed and dilated per standard protocol to reestablish flow. Final results were as satisfactory wire Was then removed after final imaging was performed. Patient however procedure well and proceeded per protocol. PCI Technique Lesion Percutaneous coronary intervention was performed on the right posterior descending artery. A LAUNCHER 6FR JR 4 #[id number] Guide Catheter was used to engage the ostium. A Luge Wire (J) .014 X 182CM #[id number] Interventional Guidewire was used to cross the lesion. BALLOON DILATION A Balloon catheter Sprinter OTW 3.0 x 20 #[id number] was inserted and inflated up to 8.00atm for 14seconds. Additional Inflation: 8.00atm for 8seconds. Additional Inflation: 8.00atm for 8seconds. STENT DEPLOYMENT A drug-eluting stent RESOLUTE OTW 2.5 X 8 #[id number] was inserted and inflated up to 8.00atm for 32seconds. STENT DEPLOYMENT A drug-eluting stent RESOLUTE OTW 2.5 X 8 #[id number] was inserted and inflated up to 9.00atm for 17seconds. Additional Inflation: 20.00atm for 12seconds. Additional Inflation: 18.00atm for 16seconds. Conclusion 1. Coronary disease multivessel with totally occluded mid RCA 2. Successful percutaneous revascularization of the right coronary artery with thrombectomy PCI and stent deployment to the PDA and distal RCA with drug-eluting stents 3. Abnormal hemodynamics with elevated left ventricular end-diastolic pressure [facility] [address] [place] [address] INVASIVE PROCEDURE REPORT Name: JASMINE NAGY Room #: 212-P [facility] IN .R.#: [id number] Admission: 12/15/17 Attend Phys: Gerson Turner, Discharge: 12/17/17 Date of : 67 Date of Service: 12/19/171707 Report #: [id number] Recommendations Smoking Cessation Cardiac Risk Reduction Program Aggressive Medical Therapy <ELECTRONICALLY SIGNED> By: Norm Walls MD 12/19/171707 07 07 Norm Walls MD /INF
[2017-12-15 21:04] VITALS: BP 166/96
[2017-12-15 22:45] LABS: HEMATOCRIT 42.3 % (42.0-52.0); HEMOGLOBIN 14.7 gm/dL (14.0-18.0); MCH 31.3 pg (26.0-34.0); MCHC 34.8 g/dL (28.0-37.0); MCV 90.1 fL (80.0-100.0); PLATELET COUNT 263 thou/uL (150-400); RBC 4.69 mil/uL (4.50-6.00); RDW 16.9 % (10.5-14.5); WBC 7.7 thou/uL (4.0-11.0)
[2017-12-15 22:53] LABS: ANION GAP 8 mmol/L (7-16); BUN 10 mg/dL (7-18); CALCIUM 8.6 mg/dL (8.5-10.1); CHLORIDE 100 mmol/L (98-107); CO2 29 mmol/L (21-32); CREATININE 0.7 mg/dL (0.7-1.3); GLUCOSE 115 mg/dL (74-106); POTASSIUM 3.3 mmol/L (3.5-5.1); SODIUM 137 mmol/L (136-145)
[2017-12-15 23:02] LABS: ALBUMIN 3.5 g/dL (3.4-5.0); DIRECT BILIRUBIN < 0.1 mg/dL (<0.1-0.3); SGOT 62 U/L (15-37); SGPT 22 U/L (30-65); TOTAL BILIRUBIN 0.2 mg/dL (<0.1-1.0); TOTAL PROTEIN 6.8 g/dL (6.4-8.2)
[2017-12-15 23:09] LABS: TROPONIN-I 5.27 ng/mL (<0.06)
[2017-12-15 23:24] LABS: ABSOLUTE NEUTROPHILS 6.2 thou/uL (1.4-8.2); ANISOCYTOSIS 1+; ATYPICAL LYMPHS 2 %
[2017-12-15 23:33] LABS: PROTIME 9.6 Seconds (9.3-11.4)
[2017-12-16] VITALS (16 sets, daily range): BP systolic 98–142; BP diastolic 52–125
[2017-12-16 00:52] LABS: AMP/METHAMP Negative (Negative); BARBITURATES Negative (Negative); BENZODIAZEPINES Negative (Negative); COCAINE Negative (Negative); METHADONE Negative (Negative); OPIATES Negative (Negative); PCP Negative (Negative)
[2017-12-16 09:49] LABS: MAGNESIUM 2.1 mg/dL (1.8-2.4)
[2017-12-16 09:59] LABS: TROPONIN-I 31.56 ng/mL (<0.06)
[2017-12-17 04:00] VITALS: BP 111/82
[2017-12-17 07:11] VITALS: BP 113/68
[2017-12-17] MEDS ORDERED: BRILINTA90 MG PO (10:52)
[2017-12-17] MEDS ORDERED: TOPROL XL25 MG PO (10:53)
[2017-12-17] MEDS ORDERED: ASPIR 8181 MG PO (10:54)
[2017-12-17 11:58] VITALS: BP 114/79
[2017-12-17] MEDS ORDERED: ASPIRIN325 PO (12:23)
[2017-12-17] MEDS ORDERED: PLAVIX 75 MG TA75 M1 PO (12:23)
[2017-12-17 13:50] VITALS: BP 114/79
== END 2017-12-17 14:10 | disposition home or self-care (01) | DRG 246 ==
LOC: ER 20:51 → EROBS 23:40 → ICU 23:40 → 2N 12-16 18:25
PROVIDERS: Nurse Practitioner Acute Care; Physician Assistant
PROC: 02C03ZZ Extirpation of Matter from Coronary Artery, One Artery, Percutaneous Approach (ICD-10-PCS; principal; 2017-12-17)
PROC: B2111ZZ Fluoroscopy of Multiple Coronary Arteries using Low Osmolar Contrast (ICD-10-PCS; principal; 2017-12-17)
PROC: 027135Z Dilation of Coronary Artery, Two Arteries with Two Drug-eluting Intraluminal Devices, Percutaneous Approach (ICD-10-PCS; principal; 2017-12-17)
PROC: B41F1ZZ Fluoroscopy of Right Lower Extremity Arteries using Low Osmolar Contrast (ICD-10-PCS; principal; 2017-12-17)
DX: I21.4 Non-ST elevation (NSTEMI) myocardial infarction (principal); E43 Unspecified severe protein-calorie malnutrition; J44.9 Chronic obstructive pulmonary disease, unspecified; I10 Essential (primary) hypertension; F17.210 Nicotine dependence, cigarettes, uncomplicated; E78.5 Hyperlipidemia, unspecified; E87.6 Hypokalemia; Z79.82 Long term (current) use of aspirin; Z79.899 Other long term (current) drug therapy; I25.2 Old myocardial infarction; Z82.49 Family history of ischemic heart disease and other diseases of the circulatory system; Z84.1 Family history of disorders of kidney and ureter; Z83.49 Family history of other endocrine, nutritional and metabolic diseases
CPT/HCPCS: 10081

== ENCOUNTER 2018-01-25 14:55 | Inpatient (IN) | payer OTHER ==
[2018-01-25] VITALS (20 sets, daily range): BP systolic 127–174; BP diastolic 71–104
[~2018-01-25] VITALS: Ht 180.3 cm; Wt 62.1 kg
--- NOTE | ~2018-01-25 | EKG ---
[address] [place] [address] ELECTROCARDIOGRAM REPORT Name: LILOJASMINE L Room #: 214-P ADM IN M.R.#: [id number] Admission: 01/25/18 Attend Phys: Suleiman Scales MD Discharge: Date of : 67 Report #: [id number] THIS REPORT FOR: //name// [facility] ED Test Date: 2018-01-25 Test Time: 15:02:58 Pat Name: JASMINE NGAY Department: Room: Gender: M Bulk Station Operator: ANAI : 1965 Requested By: Parker Louis Order Number: [id number] MD: Sushil Hall Measurements Intervals [place] Rate: 76 P: 42 ME: 171 QRS: 52 QRSD: 97 T: 97 QT: 374 QTc: 421 Interpretive Statements Sinus rhythm Inferior infarct, acute Compared to ECG 12/16/2017 07:45:07 Inferior injury pattern more prominent Electronically Signed On 01-26-2018 7:53:41 CDT by Sushil Hall [email or web address] <ELECTRONICALLY SIGNED> By: Sushil Hall MD, [facility] 01/26/18 0753 1502 150 Sushil Hall MD, [facility] /EPI
--- NOTE | ~2018-01-25 | CATHLAB ---
[facility] [address] [place] [address] INVASIVE PROCEDURE REPORT Name: JASMINE NAGY Room #: 214-P ADM IN ..#: [id number] Admission: 01/25/18 Attend Phys: Suleiman Scales MD Discharge: Date of : 67 Date of Service: 01/25/18 2354 Report #: [id number] THIS REPORT FOR: //name// APPROVED REPORT Study performed: 01/25/2018 15:31:58 Patient Details Patient Status: ED Room #: The patient is a 53 year-old male Event Personnel Norm Walls Turn Laster, Cristofer Trimble RN, Krissy Quach RTR, MENDOZA Herrera, Anaya Mccord Monitor Procedures Performed Art Access - R femoral artery* Coronary Angiography Only 6870723 CORANG 06998 Initial Mod Sed Same Phys/QHP Gr5y 885227 Atherectomy w/wo Plasty Sgl RCA 1466542 ATHSINGLE, supervision of conscious sedation Indication Chest pain Risk Factors Family History, Coronary Artery DiseaseHypertension, Tobacco History () Previous Procedures/Diagnoses Previous PCI Procedure Narrative The Right Groin^ was infiltrated with 1% Lidocaine subcutaneous anesthesia. A PINNACLE 6FR Sheath #[id number] sheath was inserted into the RFA^. Coronary angiography was performed using coronary diagnostic catheters. The right coronary system was accessed and visualized with a JR4 catheter. The left coronary system was accessed and visualized with a JL4 catheter. The patient tolerated the procedure well and there were no complications associated with the procedure. Intraoperative Conscious Sedation Sedation start time: 15:58 Case end Time: 16:20 Versed 1 mg [facility] [address] [place] [address] INVASIVE PROCEDURE REPORT Name: JASMINE NAGY David Room #: 214-P [facility] IN [facility]#: [id number] Admission: 01/25/18 Attend Phys: Suleiman Scales MD Discharge: Date of : 67 Date of Service: 01/25/18 2354 Report #: [id number] Fluoro Time: 9.30 minutes Dose: DAP 5232.1 cGycm2 790.0 mGy Contrast Type and Amount: Omnipaque 100 ml Coronary Angiography The patient's coronary anatomy is right dominant. Diagnostic Cath Left Main Left main is of normal or drink caliber bifurcates that anterior descending left circumflex although there is calcifications of fluoroscopic visualization is no significant obstructive lesions noted. LAD Moderate caliber type III vessel which has luminal irregularities it's entire course. There is no high-grade obstructive lesions noted that the course in the anterior interventricular sulcus giving rise to small diagonal branches. Diagonal 1 Small-caliber vessel without significant obstructive lesions noted Circumflex Small nondominant vessel is normal origin. As a short course in the AV groove where it gives rise to a small caliber lateral wall marginal branch. This vessel is subtotally occluded but appears to be less than half a millimeter in diameter. ARNAV flow is 2 in this vessel. OM1 Please see description above Right Coronary Moderate caliber vessel normal origin and has proximal irregularities noted. It then courses in the AV groove to the crux of the hardware a small caliber RV marginal branch is noted to have sluggish flow. The RCA proper then is completely occluded at this juncture. Distal posterior descending artery fills via faint heterocollateral collaterals from left to right. R PDA Small-caliber vessel filling from left collaterals to appear to be a small string-like vessel. Left Ventriculography Left Ventriculography was not performed. Hemodynamics The aortic pressure is 182/83 mmHg with a mean of 129 mmHg. PCI Technique Once the total occlusion was visualized diagnostic catheters were exchanged for a standard right guide. This was engaged the coronary ostium. A floor was cupping position was noted a utilized. A 0.014 wire was then advanced into the distal PDA. A extraction catheter was then advanced and passive suction performed several times. Subsequent [facility] [address] [place] [address] INVASIVE PROCEDURE REPORT Name: JASMINE NAGY Room #: 214-P [facility] IN .R.#: [id number] Admission: 01/25/18 Attend Phys: Suleiman Scales MD Discharge: Date of : 67 Date of Service: 01/25/18 2354 Report #: [id number] angiography demonstrated the presence of a 50 or less percent lesion in the PDA stent but did not appear to be flow-limiting. The remainder of the RCA had irregularities and no significant obstructive high-grade disease. IV nicardipine was then given and an improved flow was visualized. In addition to aspirin and Angiomax Integrilin was initiated as a bolus. PCI Technique Lesion Percutaneous coronary intervention was performed on the distal right coronary artery. A LAUNCHER 6FR JR 4 #[id number] Guide Catheter was used to engage the ostium. A Luge Wire .014 x 182CM #[id number] Interventional Guidewire was used to cross the lesion. Conclusion 1. Coronary disease with a totally occluded proximal mid RCA 2. Successful thrombin back to November of the right coronary artery total occlusion Recommendations Smoking Cessation Cardiac Rehabilitation Referral Cardiac Risk Reduction Program Aggressive Medical Therapy Medical Therapy Medications Administered Ticagrelor Cardiac Rehabilitation Referral Smoking Cessation <ELECTRONICALLY SIGNED> By: Norm Walls MD 01/25/18 2354 2354 2354 Norm Walls MD /INF
[~2018-01-25 14:55] MED LIST changes: +ASPIR 8181 MG PO; +BRILINTA90 MG PO
[2018-01-25 15:23] LABS: ABSOLUTE NEUTROPHILS 8.5 thou/uL (1.4-8.2); BASOPHILS 0.5 % (0.0-2.0); EOSINOPHILS 0.6 % (0.0-3.0); HEMOGLOBIN 15.6 gm/dL (14.0-18.0); LYMPHOCYTES 10.9 % (24.0-44.0); MCH 31.7 pg (26.0-34.0); MCHC 34.7 g/dL (28.0-37.0); MCV 91.3 fL (80.0-100.0); PLATELET COUNT 338 thou/uL (150-400); RBC 4.93 mil/uL (4.50-6.00); RDW 15.7 % (10.5-14.5); WBC 10.5 thou/uL (4.0-11.0)
[2018-01-25 15:35] LABS: CALCIUM 9.8 mg/dL (8.5-10.1); MAGNESIUM 1.8 mg/dL (1.8-2.4); TOTAL BILIRUBIN 0.7 mg/dL (<0.1-1.0); TOTAL PROTEIN 8.2 g/dL (6.4-8.2); TROPONIN-I 0.06 ng/mL (<0.06)
[2018-01-25 15:40] LABS: APTT 26.5 Seconds (24.5-32.8); PROTIME 9.6 Seconds (9.3-11.4)
[2018-01-25 15:44] LABS: POTASSIUM 3.2 mmol/L (3.5-5.1)
[2018-01-26] VITALS (10 sets, daily range): BP systolic 106–159; BP diastolic 71–97
[2018-01-26 03:41] LABS: HEMATOCRIT 39.8 % (42.0-52.0); HEMOGLOBIN 13.9 gm/dL (14.0-18.0); MCH 31.7 pg (26.0-34.0); MCHC 34.9 g/dL (28.0-37.0); MCV 90.8 fL (80.0-100.0); RBC 4.38 mil/uL (4.50-6.00); RDW 15.4 % (10.5-14.5); WBC 7.1 thou/uL (4.0-11.0)
[2018-01-26 04:00] LABS: CALCIUM 8.5 mg/dL (8.5-10.1); CREATININE 0.7 mg/dL (0.7-1.3); POTASSIUM 3.4 mmol/L (3.5-5.1)
[2018-01-26 04:02] LABS: TROPONIN-I 21.87 ng/mL (<0.06)
[2018-01-26 17:49] LABS: AMP/METHAMP Negative (Negative); BARBITURATES Negative (Negative); BENZODIAZEPINES Negative (Negative); COCAINE Negative (Negative); METHADONE Negative (Negative); OPIATES POSITIVE (Negative); PCP Negative (Negative)
[2018-01-27 04:30] VITALS: BP 117/41
[2018-01-27 07:58] VITALS: BP 134/83
[2018-01-27] MEDS ORDERED: EFFIENT10 MG PO (10:47)
[2018-01-27 11:21] VITALS: BP 117/41
== END 2018-01-27 12:05 | disposition home or self-care (01) | DRG 250 ==
LOC: ER 14:55 → 2N 15:23 → EROBS 15:23 → 2N 15:24
PROVIDERS: Emergency Medicine; Hospitalist
PROC: 4A023N7 Measurement of Cardiac Sampling and Pressure, Left Heart, Percutaneous Approach (ICD-10-PCS; principal; 2018-01-25)
PROC: B2111ZZ Fluoroscopy of Multiple Coronary Arteries using Low Osmolar Contrast (ICD-10-PCS; principal; 2018-01-25)
PROC: 02C03ZZ Extirpation of Matter from Coronary Artery, One Artery, Percutaneous Approach (ICD-10-PCS; principal; 2018-01-25)
DX: I21.19 ST elevation (STEMI) myocardial infarction involving other coronary artery of inferior wall (principal); E43 Unspecified severe protein-calorie malnutrition; Z68.1 Body mass index [BMI] 19.9 or less, adult; J44.9 Chronic obstructive pulmonary disease, unspecified; I25.10 Atherosclerotic heart disease of native coronary artery without angina pectoris; I10 Essential (primary) hypertension; F17.210 Nicotine dependence, cigarettes, uncomplicated; E78.5 Hyperlipidemia, unspecified; F10.10 Alcohol abuse, uncomplicated; Z79.82 Long term (current) use of aspirin; I25.2 Old myocardial infarction; Z95.5 Presence of coronary angioplasty implant and graft; Z82.49 Family history of ischemic heart disease and other diseases of the circulatory system; Z79.899 Other long term (current) drug therapy
CPT/HCPCS: 10194

== ENCOUNTER 2018-05-19 20:36 | Inpatient (IN) | payer OTHER ==
[~2018-05-19] VITALS: Ht 180.3 cm; Wt 58.5 kg
--- NOTE | ~2018-05-19 | EKG ---
[place] [address] [facility] [facility] [place] [address] ELECTROCARDIOGRAM REPORT Name: JASMINE NAGY Room #: 359-P [facility] IN M.R.#: [id number] Admission: 05/19/18 Attend Phys: Gerson Turner MD Discharge: 05/21/18 Date of : 67 Report #: [id number] THIS REPORT FOR: //name// [facility] ED Test Date: 2018-05-19 Test Time: 20:55:21 Pat Name: JASMINE NAGY Department: Room: [facility] Gender: M Industrial X Ray Operator: JALEEL : 1965 Requested By: Parker Louis Order Number: [id number] MD: Sushil Hall Measurements Intervals [place] Rate: 76 P: 75 NV: 160 QRS: -1 QRSD: 106 T: -46 QT: 378 QTc: 426 Interpretive Statements Sinus rhythm Ventricular premature complex RSR' in V1 or V2, right VCD Inferior infarct, age indeterminate Nonspecific ST and T wave abnormality Compared to ECG 01/25/2018 15:02:58 Ventricular premature complex(es) now present Inferior injury pattern no longer present Electronically Signed On 05-22-2018 8:25:15 CDT by Sushil Hall [email or web address] <ELECTRONICALLY SIGNED> By: Sushil Hall MD, FACC 05/22/18824 54 54 Sushil Hall MD, FACC /EPI
[2018-05-19 20:37] VITALS: BP 158/84
[2018-05-19] MEDS ORDERED: PLAVIX 75 MG TA75 M1 PO (21:06)
[2018-05-19] MEDS ORDERED: LISINOPRIL20 MG PO (21:07)
[2018-05-19 21:29] LABS: ABSOLUTE NEUTROPHILS 4.8 thou/uL (1.4-8.2); BASOPHILS 1.1 % (0.0-2.0); HEMATOCRIT 45.8 % (42.0-52.0); HEMOGLOBIN 15.6 gm/dL (14.0-18.0); LYMPHOCYTES 19.1 % (24.0-44.0); MCH 31.1 pg (26.0-34.0); MCHC 34.1 g/dL (28.0-37.0); MCV 91.3 fL (80.0-100.0); MONOCYTES 8.9 % (1.0-8.0); PLATELET COUNT 243 thou/uL (150-400); POLYS 70.9 % (36.0-66.0); RBC 5.02 mil/uL (4.50-6.00); RDW 14.1 % (10.5-14.5); WBC 6.8 thou/uL (4.0-11.0)
[2018-05-19 21:40] LABS: ANION GAP 14 mmol/L (7-16); BUN 9 mg/dL (7-18); CHLORIDE 99 mmol/L (98-107); CO2 24 mmol/L (21-32); GLUCOSE 134 mg/dL (74-106); SODIUM 137 mmol/L (136-145)
[2018-05-19 21:41] LABS: POTASSIUM 2.9 mmol/L (3.5-5.1)
[2018-05-19 21:44] LABS: APTT 30.4 Seconds (24.5-32.8); D-DIMER 0.23 ug/mLFEU (0.19-0.50); PROTIME 9.7 Seconds (9.3-11.4)
[2018-05-19 21:48] LABS: ALBUMIN 3.8 g/dL (3.4-5.0); MAGNESIUM 2.1 mg/dL (1.8-2.4); SGOT 17 U/L (15-37); SGPT 6 U/L (30-65); TOTAL BILIRUBIN 0.3 mg/dL (<0.1-1.0); TOTAL PROTEIN 7.8 g/dL (6.4-8.2); TROPONIN-I <0.06 ng/mL (<0.06)
[2018-05-19 22:58] VITALS: BP 133/89
[2018-05-19 23:05] VITALS: BP 133/89
[2018-05-19 23:58] VITALS: BP 138/91
[2018-05-20 03:26] VITALS: BP 151/90
[2018-05-20 07:41] VITALS: BP 135/97
[2018-05-20 07:43] LABS: ANION GAP 7 mmol/L (7-16); BUN 8 mg/dL (7-18); CALCIUM 9.4 mg/dL (8.5-10.1); CHLORIDE 102 mmol/L (98-107); CO2 27 mmol/L (21-32); CREATININE 0.8 mg/dL (0.7-1.3); GLUCOSE 96 mg/dL (74-106); SODIUM 136 mmol/L (136-145); TROPONIN-I <0.06 ng/mL (<0.06)
[2018-05-20 07:44] LABS: POTASSIUM 4.1 mmol/L (3.5-5.1)
[2018-05-20 07:57] LABS: CHOLESTEROL 171 mg/dL (<200); HDL CHOLESTEROL 50 mg/dL (>40); LDL CHOLESTEROL 106 mg/dL (<100); TC:HDL 3.4 Ratio (Not establshd); TRIGLYCERIDE 75 mg/dL (<150); VLDL 15 mg/dL (<40)
[2018-05-20 12:03] VITALS: BP 119/74
[2018-05-20 16:24] VITALS: BP 112/60
[2018-05-20 19:22] VITALS: BP 105/57
[2018-05-21 04:21] VITALS: BP 107/58
[2018-05-21 07:45] VITALS: BP 99/63
[2018-05-21 10:50] VITALS: BP 101/60; BP 104/61; BP 105/58
[2018-05-21 11:55] VITALS: BP 107/66
[2018-05-21] MEDS ORDERED: IMDUR 30 MG TAB30 M1 PO (12:19)
[2018-05-21] MEDS ORDERED: PEPCID20 MG PO (12:19)
[2018-05-21] MEDS ORDERED: MEDROL4 M1 PO (12:19)
[2018-05-21 12:47] VITALS: BP 107/66
[2018-05-22] MEDS ORDERED: ULTRACET TABLET1 TAB PO (10:38)
== END 2018-05-21 14:10 | disposition home or self-care (01) | DRG 551 ==
LOC: ER 20:36 → EROBS 22:40 → 3W 23:06
PROVIDERS: Emergency Medicine; Nurse Practitioner Acute Care
DX: M51.16 Intervertebral disc disorders with radiculopathy, lumbar region (principal); E43 Unspecified severe protein-calorie malnutrition; I25.119 Atherosclerotic heart disease of native coronary artery with unspecified angina pectoris; J44.9 Chronic obstructive pulmonary disease, unspecified; K21.9 Gastro-esophageal reflux disease without esophagitis; F17.210 Nicotine dependence, cigarettes, uncomplicated; E87.6 Hypokalemia; I25.10 Atherosclerotic heart disease of native coronary artery without angina pectoris; I10 Essential (primary) hypertension; I25.2 Old myocardial infarction; Z82.49 Family history of ischemic heart disease and other diseases of the circulatory system; Z84.1 Family history of disorders of kidney and ureter; Z79.82 Long term (current) use of aspirin; Z79.899 Other long term (current) drug therapy; Z95.5 Presence of coronary angioplasty implant and graft
CPT/HCPCS: 10879

== ENCOUNTER 2018-12-04 19:45 | Inpatient (IN) | payer OTHER ==
[~2018-12-04] VITALS: Ht 180.3 cm; Wt 62.6 kg
[2018-12-04 19:45] VITALS: BP 135/92
[~2018-12-04 19:45] MED LIST changes: +IMDUR 30 MG TAB30 M1 PO; +LISINOPRIL20 MG PO; +MEDROL4 M1 PO; +PEPCID20 MG PO; +ULTRACET TABLET1 TAB PO
[2018-12-04 20:23] LABS: BASOPHILS 0.2 % (0.0-2.0); EOSINOPHILS 0.1 % (0.0-3.0); HEMATOCRIT 46.9 % (42.0-52.0); HEMOGLOBIN 15.9 gm/dL (14.0-18.0); LYMPHOCYTES 8.8 % (24.0-44.0); MCH 30.3 pg (26.0-34.0); MCHC 33.9 g/dL (28.0-37.0); MCV 89.4 fL (80.0-100.0); MONOCYTES 3.3 % (1.0-8.0); PLATELET COUNT 288 thou/uL (150-400); POLYS 87.6 % (36.0-66.0); RBC 5.25 mil/uL (4.50-6.00); RDW 16.1 % (10.5-14.5); WBC 13.7 thou/uL (4.0-11.0)
[2018-12-04 20:27] LABS: CALCIUM 9.5 mg/dL (8.5-10.1); CREATININE 0.9 mg/dL (0.7-1.3); POTASSIUM 4.1 mmol/L (3.5-5.1)
[2018-12-04 20:38] LABS: TROPONIN-I 5.62 ng/mL (<0.06)
[2018-12-04] MEDS ORDERED: NORVASC2.5 MG PO (20:41)
[2018-12-04] MEDS ORDERED: LISINOPRIL10 MG PO (20:42)
[2018-12-04] MEDS ORDERED: ATORVASTATIN CA40 MG PO (20:42)
[2018-12-04] MEDS ORDERED: ZETIA10 MG PO (20:42)
[2018-12-04] MEDS ORDERED: RANEXA500 MG PO (20:43)
[2018-12-04 21:21] LABS: PROTIME 9.7 Seconds (9.3-11.4)
[2018-12-04 21:33] VITALS: BP 121/73
[2018-12-04 21:45] VITALS: BP 125/80
[2018-12-04 22:16] VITALS: BP 131/78
[2018-12-04] MEDS ORDERED: ASPIR 8181 MG PO (22:48)
[2018-12-05] VITALS (15 sets, daily range): BP systolic 103–134; BP diastolic 55–89
[2018-12-05 03:11] LABS: CHOLESTEROL 172 mg/dL (<200); HDL CHOLESTEROL 70 mg/dL (>40); LDL CHOLESTEROL 90 mg/dL (<100); SERUM ASSESSMENT Clear; TC:HDL 2.5 Ratio (Not establshd); TRIGLYCERIDE 61 mg/dL (<150); VLDL 12 mg/dL (<40)
[2018-12-05 03:14] LABS: CALCIUM 8.4 mg/dL (8.5-10.1); CREATININE 0.8 mg/dL (0.7-1.3); POTASSIUM 3.9 mmol/L (3.5-5.1)
[2018-12-05 03:19] LABS: TROPONIN-I 3.92 ng/mL (<0.06)
--- NOTE | 2018-12-05 04:45 | NUR ---
PT ARRIVED UNIT AT ABOUT 2230. PT A/OX4, VITAL SIGNS STABLE. ASSESSMENT CHARTED. PT ON NHEPARIN DRIP ON ARRIVAL. PROTOCOL FOLLOWED. PT COMPLAINED OF SOME CHEST PAIN RADIATING TO LEFT SHOULDER. MORPHINE GIVEN WHICH SEEMED TO HELP.PT OTHERWISE RESTED COMFORTABLY IN BED THROUGH THE NIGHT. CONSENTS SIGNED. ADMISSION HX COMPLETED. WILL CONTINUE TO CLOSELY MONITOR.
[2018-12-05 05:02] LABS: HEMATOCRIT 42.4 % (42.0-52.0); HEMOGLOBIN 14.4 gm/dL (14.0-18.0); MCH 30.6 pg (26.0-34.0); MCHC 33.9 g/dL (28.0-37.0); MCV 90.3 fL (80.0-100.0); RBC 4.7 mil/uL (4.50-6.00); RDW 15.7 % (10.5-14.5); WBC 7.4 thou/uL (4.0-11.0)
--- NOTE | 2018-12-05 09:17 | EKG ---
[place] [address] [facility] [place] [address] ELECTROCARDIOGRAM REPORT Name: JASMINE NAGY Room #: 215-P ADM IN M.R.#: [id number] ������������������ Admission: 12/04/18 ������������������ Attend Phys: Cindy Wiggins Discharge: ������������������ Date of : 67 Report #: [id number] ����������������������������������������������������������������� [id number] THIS REPORT FOR: //name// [facility] ED Test Date: 2018-12-04 Test Time: 19:49:38 Pat Name: JASMINE NAGY Department: Room: 215 Gender: M Data Base Administrator: KKODJOVI : 1965 Requested By: Clark Vidal Order Number: [id number] MD: Sushil Hall Measurements Intervals [place] Rate: 83 P: 42 NM: 125 QRS: 48 QRSD: 101 T: -19 QT: 381 QTc: 448 Interpretive Statements Sinus rhythm Probable left ventricular hypertrophy Inferior infarct, old Compared to ECG 05/19/2018 20:55:21 Ventricular premature complex(es) no longer present Electronically Signed On 12-05-2018 9:17:13 CDT by Sushil Hall [email or web address] ��������������������������������������������� <ELECTRONICALLY SIGNED> ���������������������������������������� By: Sushil Hall MD, [facility] ��������������������������������������������� 12/05/18916 48 48 Sushil Hall MD, [facility] /EPI
--- NOTE | 2018-12-05 09:24 | EKG ---
[place] [address] [facility] [place] [address] ELECTROCARDIOGRAM REPORT Name: LILOJASMINE L Room #: 215-P ADM IN M.R.#: [id number] ������������������ Admission: 12/04/18 ������������������ Attend Phys: Cindy Wiggins Discharge: ������������������ Date of : 67 Report #: [id number] ����������������������������������������������������������������� [id number] THIS REPORT FOR: //name// [facility] Test Date: 2018-12-05 Test Time: 07:35:41 Pat Name: JASMINE NAGY Department: Room: 215 P Gender: M Grief Counsellor: MITESH : 1965 Requested By: Jeison Enciso Order Number: [id number] MD: Sushil Hall Measurements Intervals [place] Rate: 67 P: 0 CA: 152 QRS: 30 QRSD: 97 T: 1 QT: 443 QTc: 468 Interpretive Statements Sinus rhythm Probable left ventricular hypertrophy Inferior infarct, old Compared to ECG 05/19/2018 20:55:21 No significant change was found Electronically Signed On 12-05-2018 9:24:05 CDT by Sushil Hall [email or web address] ��������������������������������������������� <ELECTRONICALLY SIGNED> ���������������������������������������� By: Sushil Hall MD, [facility] ��������������������������������������������� 12/05/18923 4 Sushil Hall MD, [facility] /EPI
--- NOTE | 2018-12-05 17:59 | NUR ---
PT ALERT AND ORIENTED. RECEIVED PRN PAIN MED FOR CHEST PAIN WITH PARTIAL RELIEF. HAD CARDIAC CATH MID MORNING. NO INTERVENTION. RIGHT GROIN INCISION C/D/I. NO HEMATOMA NOTED. HEPARIN DRIP DISCONTINUED. NO CARDIAC DISTRESS NOTED. WILL CONTINUE TO MONITOR.
--- NOTE | 2018-12-06 04:25 | NUR ---
ASSUMED PT CARE AT 1900. VSS. PT A&0X4. STILL COMPLAINING OF INTERMITENT CHESTPAIN, RANOLAZINE GIVEN LAST NIGHT AND MORPHINE GIVEN AROUND 1AM. PT IS STABLE, SLEPT FOR MOST OF THE NIGHT, R GROIN SITE REMAINS CDI. GOOD URINE OUTPUT, WILL CONTINUE TO MONITOR.
[2018-12-06 04:50] VITALS: BP 97/63
[2018-12-06 08:08] VITALS: BP 100/56
[2018-12-06 11:08] VITALS: BP 100/59
[2018-12-06] MEDS ORDERED: METOPROLOL SUCC25 M1 PO (15:29)
[2018-12-06] MEDS ORDERED: IMDUR 30 MG TAB30 M1 PO (15:29)
[2018-12-06 15:36] VITALS: BP 100/59
--- NOTE | 2018-12-06 16:58 | NUR ---
ASSESSMENT DOCUMENTED. PT ALERT AND ORIENTED. VSS. RECEIVED PRN PAIN MED WITH PARTIAL RELIEF. ORDERS GIVEN TO DISCHARGE PT TO HOME. DISCHARGE INSTRUCTIONS GIVEN TO PT. PT VERBERLIZE UNDERSTANDING.
--- NOTE | 2018-12-20 21:35 | CATHLAB ---
[facility] [address] [place] [address] INVASIVE PROCEDURE REPORT Name: LILOJASMINE L Room #: 212-P [facility] IN ..#: [id number] ������������� Admission: 12/04/18 ������������� Attend Phys: Cindy Azar Discharge: ��� 12/06/18 ������������� ��� Date of : 67 Date of Service: 12/20/18 2135 �� Report #: [id number] �������� ��������������������������������������������[id number] THIS REPORT FOR: //name// APPROVED REPORT Study performed: 12/05/2018 13:31:51 Patient Details Patient Status: In-Patient Room #: The patient is a 53 year-old male Event Personnel Norm Walls Mold Shaker, Sudha Rodrigez RN, Cristofer Trimble RN, Krissy Quach RTR, Liu Gomez Valisa Monitor Procedures Performed Art Access - R femoral artery* Left Heart Cath w/or w/o Coronaries [id number] [facility] 18383 Initial Mod Sed Same Phys/QHP Gr5y 491299 Hemostasis with Manual pressure, supervision of conscious sedation Indication Non-STEMI (>12 hrs to = 24 hrs), Chest pain Procedure Narrative The Right Groin^ was infiltrated with 1% Lidocaine subcutaneous anesthesia. A PINNACLE 4FR Sheath #[id number] sheath was inserted into the RFA^. Coronary angiography was performed using coronary diagnostic catheters. The right coronary system was accessed and visualized with a JR4 catheter. The left coronary system was accessed and visualized with a 4FR JL4.5 #[id number] catheter. Left ventricular/Aortic Valve gradient assessed via catheter pullback. Hemostasis was obtained with manual pressure following sheath removal without any complications. The patient tolerated the procedure well and there were no complications associated with the procedure. There was no hematoma. Intraoperative Conscious Sedation Sedation start time: 13:37 Case end Time: 13:57 Versed 2 mg Fluoro Time: 2.07 minutes Dose: DAP 1991.00 cGycm2 299 mGy [facility] [address] INVASIVE PROCEDURE REPORT Name: JASMINE NAGY Room #: 212-P [facility] IN ..#: [id number] ������������� Admission: 12/04/18 ������������� Attend Phys: Cindy Azar Discharge: ��� 12/06/18 ������������� ��� Date of : 67 Date of Service: 12/20/18 2135 �� Report #: [id number] �������� ��������������������������������������������[id number] Contrast Type and Amount: Omnipaque 90 ml Coronary Angiography The patient's coronary anatomy is right dominant. Diagnostic Cath Left Main Normal origin and caliber bifurcates left anterior descending left circumflex. Has mild intraluminal irregularities but no high-grade lesions. LAD Multiple moderate caliber type II vessel which in its proximal course is a stent. The stent is about 30-40% restenosis and not flow-limiting. The LAD continues in the anterior interventricular sulcus giving rise to septal and diagonal branches with only luminal irregularities in its mid course. In the distal third of vessel rapidly tapers with moderate irregularities noted in lesions noted Diagonal 1 Small caliber vessel without significant high-grade lesions noted Circumflex Small-caliber vessel which courses on the lateral aspect of the heart. Duration with small nodule branches all with luminal irregularities. There is a stent in the proximal portion of the circumflex which is patent without significant restenosis OM1 Small-caliber vessel without high-grade lesions noted OM2 Diminutive size vessel without significant high-grade lesion Right Coronary All caliber dominant vessel procedures in the AV groove to the acute margin. At the acute margin a small RV marginal branch with moderate irregularities throughout its course and some focal high-grade lesions are noted. Beyond the origin of this RV marginal branch the RCA is completely occluded at the same site is been occluded previously. R PDA Treatment details. Left to right collaterals. Not visualized an antegrade injection Left Ventriculography Left Ventriculography was not performed. Hemodynamics The aortic pressure is 124/63 mmHg with a mean of 83 mmHg. The left ventricular pressure is 132/4 mmHg with a mean of mmHg. The left ventricular end diastolic pressure is 15 mmHg. Conclusion 1. Coronary artery disease severe single-vessel with total occlusion [facility] [address] [place] [address] INVASIVE PROCEDURE REPORT Name: LILOJASMINE Room #: 212-P [facility] IN M.R.#: [id number] ������������� Admission: 12/04/18 ������������� Attend Phys: Cindy Azar Discharge: ��� 12/06/18 ������������� ��� Date of : 67 Date of Service: 12/20/18 2135 �� Report #: [id number] �������� ��������������������������������������������[id number] of the RCA at the acute margin and mild restenosis of left anterior descending left circumflex coronary artery stents 2. Abnormal hemodynamics with elevated L left ventricular end-diastolic pressures Recommendations Cardiac Risk Reduction Program Aggressive Medical Therapy ��������������������������������������������� <ELECTRONICALLY SIGNED> ���������������������������������������� By: Norm Walls MD ��������������������������������������������� 12/20/182134 34 34 Norm Walls MD /INF
== END 2018-12-06 16:00 | disposition home or self-care (01) | DRG 282 ==
LOC: ER 19:45 → EROBS 21:03 → 2N 21:03
PROVIDERS: Emergency Medicine; Internal Medicine Cardiovascular Disease; Nurse Practitioner Family; ADMIT Hospitalist
PROC: B2111ZZ Fluoroscopy of Multiple Coronary Arteries using Low Osmolar Contrast (ICD-10-PCS; principal; 2018-12-05)
PROC: 4A023N7 Measurement of Cardiac Sampling and Pressure, Left Heart, Percutaneous Approach (ICD-10-PCS; principal; 2018-12-05)
PROC: B2151ZZ Fluoroscopy of Left Heart using Low Osmolar Contrast (ICD-10-PCS; principal; 2018-12-05)
DX: T82.855A Stenosis of coronary artery stent, initial encounter (principal); I21.4 Non-ST elevation (NSTEMI) myocardial infarction; J44.9 Chronic obstructive pulmonary disease, unspecified; I25.10 Atherosclerotic heart disease of native coronary artery without angina pectoris; I10 Essential (primary) hypertension; K21.9 Gastro-esophageal reflux disease without esophagitis; E78.5 Hyperlipidemia, unspecified; F17.200 Nicotine dependence, unspecified, uncomplicated; Y83.8 Other surgical procedures as the cause of abnormal reaction of the patient, or of later complication, without mention of misadventure at the time of the procedure; Y92.89 Other specified places as the place of occurrence of the external cause; I25.2 Old myocardial infarction; Z95.5 Presence of coronary angioplasty implant and graft; Z79.899 Other long term (current) drug therapy; Z91.19 Patient's noncompliance with other medical treatment and regimen
CPT/HCPCS: 10081

== ENCOUNTER 2018-12-17 19:12 | Inpatient (IN) | payer OTHER ==
[~2018-12-17] VITALS: Ht 180.3 cm; Wt 63.5 kg
[~2018-12-17 19:12] MED LIST changes: +LISINOPRIL10 MG PO; +METOPROLOL SUCC25 M1 PO; +NORVASC2.5 MG PO; +ZETIA10 MG PO
[2018-12-17 19:14] VITALS: BP 128/81
[2018-12-17 19:47] LABS: HEMATOCRIT 45.4 % (42.0-52.0); HEMOGLOBIN 15.6 gm/dL (14.0-18.0); MCHC 34.5 g/dL (28.0-37.0); PLATELET COUNT 330 thou/uL (150-400); RBC 5.04 mil/uL (4.50-6.00); RDW 15.5 % (10.5-14.5); WBC 9.5 thou/uL (4.0-11.0)
[2018-12-17 19:56] LABS: CREATININE 0.8 mg/dL (0.7-1.3); POTASSIUM 3.9 mmol/L (3.5-5.1)
[2018-12-17 20:05] LABS: TOTAL BILIRUBIN 0.6 mg/dL (<0.1-1.0); TOTAL PROTEIN 7.7 g/dL (6.4-8.2); TROPONIN-I 0.1 ng/mL (<0.06)
[2018-12-17 21:23] VITALS: BP 129/75
[2018-12-17 22:00] VITALS: BP 132/79
--- NOTE | 2018-12-17 22:45 | EKG ---
[address] [address] ELECTROCARDIOGRAM REPORT Name: JASMINE NAGY Room #: 204-P ADM IN M.R.#: [id number] ������������������ Admission: 12/17/18 ������������������ Attend Phys: Gerson Turner MD Discharge: ������������������ Date of : 67 Report #: [id number] ����������������������������������������������������������������� [id number] THIS REPORT FOR: //name// [facility] ED Test Date: 2018-12-17 Test Time: 19:15:40 Pat Name: JASMINE NAGY Department: Room: 204 Gender: M Tester Semiconductor Packages: DEEDEE : 1965 Requested By: Parker Louis Order Number: [id number] MD: Иван Shepard Measurements Intervals [place] Rate: 77 P: 30 AL: 140 QRS: 36 QRSD: 94 T: -30 QT: 380 QTc: 431 Interpretive Statements Sinus rhythm Left ventricular hypertrophy Inferior infarct, age indeterminate Compared to ECG 12/05/2018 07:35:41 Myocardial infarct finding still present Electronically Signed On 12-17-2018 22:45:09 CDT by Иван Shepard [email or web address] ��������������������������������������������� <ELECTRONICALLY SIGNED> ���������������������������������������� By: Иван Shepard MD ��������������������������������������������� 12/17/18 4112 14 14 Иван Shepard MD /EPI
[2018-12-18 01:00] VITALS: BP 132/76
--- NOTE | 2018-12-18 03:07 | NUR ---
ADMIT FROM ER AROUND 0. VSS. ASSESSMENT CHARTED PT C/O LEFT CHEST PAIN NITRO AND MORPHINE PER EMAR, PARTIAL RELIEF. ER NOTES FRANCIS AWARE OF PT ARRIVAL . SLEEVE SETTER LOCKSTITCH NOTIFIED AND SAW PT AT BEDSIDE. 2L NC. SEE PT CARDIAC HX. PLAN FOR SERIAL TROPS AND LABS THIS AM. WILL CONTINUE TO MONITOR AND WITH POC.
[2018-12-18 04:00] VITALS: BP 126/74
[2018-12-18 09:32] VITALS: BP 100/67
--- NOTE | 2018-12-18 15:09 | NUR ---
PT IS ALERT AND ORIENTED X4. LUNGS ARE CLEAR TO DIMINISHEDON O2 AT 2 LITERS NASAL CANULA. HEATING A HEART HEALTHY DIET. SINUS BRADYCARDIA ON THE MONITOR. VOIDS PER URINAL. MEDS GIVEN FOR CHEST DISCOMFORT. AND PT REPORTS DECREASE IN PAIN. CARDIAC AWARE OF PT. CALL LIGHT WITHIN REACH IF NEEDS ASSISTANCE. VS STABLE.
[2018-12-18 20:24] VITALS: BP 112/63
[2018-12-19] VITALS (7 sets, daily range): BP systolic 85–127; BP diastolic 57–76
--- NOTE | 2018-12-19 03:39 | NUR ---
ASSUMED CARE 1900. ASSESSMENT CHARTED. PT C/O L CHEST PAIN/PRESSURE PRN MORPHINE PER EMAR, PARTIAL RELIEF. SEE CARDIOLOGY NOTES- NEW DOSE BETA KIERRA AND IMDUR STARTED. BP LOW SEE VITALS, TERMINAL OPERATIONS MANAGER NOTIFIED, ORDERS RECIEVED. PLAN FOR LIPID PROFILE AND EKG THIS AM. WILL CONTINUE TO MONITOR AND WITH POC.
[2018-12-19 04:19] LABS: CHOLESTEROL 148 mg/dL (<200); HDL CHOLESTEROL 42 mg/dL (>40); LDL CHOLESTEROL 93 mg/dL (<100); TC:HDL 3.5 Ratio (Not establshd); TRIGLYCERIDE 66 mg/dL (<150); VLDL 13 mg/dL (<40)
[2018-12-19 04:22] LABS: SERUM ASSESSMENT Clear
--- NOTE | 2018-12-19 09:04 | EKG ---
[address] [address] ELECTROCARDIOGRAM REPORT Name: JASMINE NAGY Room #: 204-P ADM IN M.R.#: [id number] ������������������ Admission: 12/17/18 ������������������ Attend Phys: Gerson Turner MD Discharge: ������������������ Date of : 67 Report #: [id number] ����������������������������������������������������������������� [id number] THIS REPORT FOR: //name// [facility] Test Date: 2018-12-19 Test Time: 08:21:39 Pat Name: JASMINE NAGY Department: Room: 204 P Gender: M Grain Combine Driver: CYNTHIA : 1965 Requested By: Yolande Martínez Order Number: [id number] MD: Иван Shepard Measurements Intervals [place] Rate: 57 P: FL: QRS: 26 QRSD: 105 T: -24 QT: 454 QTc: 442 Interpretive Statements Sinus rhythm Left ventricular hypertrophy Nonspecific T abnormalities, inferior leads ST elev, probable normal early repol pattern Compared to ECG 12/17/2018 19:15:40 Electronically Signed On 12-19-2018 9:04:44 CDT by Иван Shepard [email or web address] ��������������������������������������������� <ELECTRONICALLY SIGNED> ���������������������������������������� By: Иван Shepard MD ��������������������������������������������� 12/19/18903 0 0 Иван Shepard MD /EPI
--- NOTE | 2018-12-19 19:22 | NUR ---
ASSUMED CARE OF PT AT 0700. PT A&OX4, UP AD CHARO. PT HAD CHEST PAIN PARTIALLY CONTROLLED WITH IMDUR, RENEXA AND MORPHINE. PT'S PAIN WAS A 6 AND REDUCED TO A 4 WITH MORPHINE. PT HAD LOW BLOOD PRESSURES AND METOPROLOL AND LISINOPRIL HELD. PT HAD EKG THIS MORNING AND CRISTOPHER WAYNE REVIEWED. TELEMETRY INTERFERENCE LETTER RE-REVIEWED WITH PT TODAY.
[2018-12-20] VITALS (7 sets, daily range): BP systolic 93–122; BP diastolic 60–71
--- NOTE | 2018-12-20 03:09 | NUR ---
ASSUMED CARE 1899. ASSESSMENT CHARTED. PT C/O CHEST PAIN. PHYSICIAN ROUNDED ON PT THIS EVENING, ORDERS GIVEN. D/C MORPHINE, BECKIE GIVEN, PARTIAL PAIN RELIEF. MONITORING BP AND HR. PT STATED PHYSICIAN WANTS HIM TO WALK THE HALLS, PT WAS ABLE TO GET UP SOME IN ROOM BUT STATED HE WAS VERY TIRED AND WILL TRY AGAIN TODAY. R/T BROUGHT HUMIDIFIER FOR N/C 1 LITER FOR COMFORT ON AND OFF PER PT. WILL CONTINUE TO MONITOR AND WITH POC.
--- NOTE | 2018-12-20 18:37 | NUR ---
ASSUMED CARE OF PT AT SHIFT CHANGE. ASSESSMENTS CHARTED. MEDS GIVEN PER SEP. PT ALERT AND ORIENTED, VSS, C/O CHEST PAIN- NITRO GIVEN WITH NO RELIEF. CARDIOLOGY AWARE. NO NEW ORDERS. PROVIDER NOTIFIED, ORDERS RECEIVED. PAIN MANAGED WITH PO PAIN MEDS. PT UP AD CHARO, URINE OUTPUT ADEQUATE, APPETITE ADEQUATE. PLAN IS TO MEDICALLY MANAGE PT CHEST PAIN AND CARDIAC PER CARDIOLOGY. PT IS CURRENTLY RESTING COMFORTABLY IN BED, DENIES CONCERNS AT THIS TIME. CONTINUING TO MONITOR.
[2018-12-21 00:27] VITALS: BP 114/79
--- NOTE | 2018-12-21 03:47 | NUR ---
RECEIVED PT'S CARE AT 1900; PT. ON BED; AOX4; C/O CHEST PAIN; 11/08; INFORMED PRN PAIN MEDICATION NOT DUE UNTIL 2029; ST. UNDERSTANDING; DURING ASSESSMENT PT. CHEST PAIN; 02/07; EDUCATED ABOUT THE NEED OF GIVEN PAIN MEDICATION AFTER SCHEDULED BP MEDICATION DUE TO POSSIBLE DECREASE BP; ST. UNDERSTANDING; PRN PAIN MEDICATION GIVEN AT 0; PAIN RE-ASSESSMENT PT. SLEEPING; DURING ASSESSMENT PT. 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 EYE; ST. "I SEE SHADOWS"; EDUCATED ABOUT OF CHANGE TO FALL RISK DUE TO DECREASE VISSION; ST. UNDERSTANDING; YELLOW SUCKS AND YELLOW BAND GIVEN; THROUGH THE NIGHT HEART RYTHM SB; AT AROUND 2100 PT'S RHYTHM ON MONITOR SHOWED PACs; STRIP ON CHART; NO C/O HEADACHE OR DIZZINESS; ABLE TO REST THROUGH THE NIGHT WITH EYES CLOSED; ASSESSMENT CHARGED; FOLLOWING POC; WILL KEEP MONITORING; WILL PASS ON REPORT.
[2018-12-21 04:45] VITALS: BP 94/63
[2018-12-21 08:44] VITALS: BP 98/53
[2018-12-21 11:38] VITALS: BP 99/69
[2018-12-21] MEDS ORDERED: IMDUR 60 MG TAB60 M1 PO (12:08)
[2018-12-21] MEDS ORDERED: METOPROLOL SUCC25 M1 PO (12:09)
[2018-12-21] MEDS ORDERED: HYDROCODONE-AP1 EAC6 PO (12:09)
[2018-12-21 12:34] VITALS: BP 99/69
--- NOTE | 2018-12-21 14:59 | NUR ---
VSS, PATIENT DISCHARGED, GIVEN DISCHARGE INSTRUCTIONS, PATIENT STATED UNDERSTANDING. SALINE LOCK DCD
== END 2018-12-21 15:02 | disposition home or self-care (01) | DRG 303 ==
LOC: ER 19:12 → 2N 20:58 → EROBS 20:58 → 2N 22:26 → ENTRNSPT 12-21 14:46 → EDTRNSPTSTS 12-21 14:57 → 2N 12-21 15:02
PROVIDERS: Emergency Medicine; Nurse Practitioner; ADMIT Internal Medicine
DX: I25.10 Atherosclerotic heart disease of native coronary artery without angina pectoris (principal); J96.11 Chronic respiratory failure with hypoxia; J44.9 Chronic obstructive pulmonary disease, unspecified; K21.9 Gastro-esophageal reflux disease without esophagitis; F17.210 Nicotine dependence, cigarettes, uncomplicated; I10 Essential (primary) hypertension; I25.2 Old myocardial infarction; Z95.5 Presence of coronary angioplasty implant and graft; Z82.49 Family history of ischemic heart disease and other diseases of the circulatory system; Z83.3 Family history of diabetes mellitus; Z82.3 Family history of stroke; Z71.6 Tobacco abuse counseling; Z79.82 Long term (current) use of aspirin; Z79.899 Other long term (current) drug therapy
CPT/HCPCS: 10081

== ENCOUNTER 2019-02-05 21:39 | Inpatient (IN) | payer OTHER ==
[~2019-02-05] VITALS: Ht 180.3 cm; Wt 63.5 kg
[~2019-02-05 21:39] MED LIST changes: +HYDROCODONE-AP1 EAC6 PO
[2019-02-05 21:52] VITALS: BP 133/70
[2019-02-05 22:10] LABS: HEMATOCRIT 44.5 % (42.0-52.0); HEMOGLOBIN 15.3 gm/dL (14.0-18.0); MCH 30.5 pg (26.0-34.0); MCHC 34.3 g/dL (28.0-37.0); MCV 89.1 fL (80.0-100.0); PLATELET COUNT 253 thou/uL (150-400); WBC 6.3 thou/uL (4.0-11.0)
[2019-02-05 22:17] LABS: ANION GAP 10 mmol/L (7-16); BUN 8 mg/dL (7-18); CALCIUM 9.1 mg/dL (8.5-10.1); CHLORIDE 99 mmol/L (98-107); CO2 29 mmol/L (21-32); CREATININE 0.8 mg/dL (0.7-1.3); GLUCOSE 94 mg/dL (74-106); POTASSIUM 4.2 mmol/L (3.5-5.1); SODIUM 138 mmol/L (136-145)
[2019-02-05 22:29] LABS: ALBUMIN 3.8 g/dL (3.4-5.0); SGOT 19 U/L (15-37); SGPT 23 U/L (30-65); TOTAL BILIRUBIN 0.7 mg/dL (<0.1-1.0); TOTAL PROTEIN 7.4 g/dL (6.4-8.2); TROPONIN-I <0.06 ng/mL (<0.06)
[2019-02-05 22:38] LABS: ABSOLUTE NEUTROPHILS 3.2 thou/uL (1.4-8.2)
--- NOTE | 2019-02-06 07:54 | EKG ---
[place] [address] [facility] [place] [address] ELECTROCARDIOGRAM REPORT Name: JASMINE NAGY David Room #: 170-4 ADM IN M.R.#: [id number] ������������������ Admission: 02/05/19 ������������������ Attend Phys: Leida Pérez MD Discharge: ������������������ Date of : 67 Report #: [id number] ����������������������������������������������������������������� [id number] THIS REPORT FOR: //name// [facility] ED Test Date: 2019-02-05 Test Time: 21:46:32 Pat Name: JASMINE NAGY Department: Room: 170 Gender: Male Lubrication Supervisor: SETH : 1965 Requested By: Hu Dubois Order Number: [id number] MD: Sushil Hall Measurements Intervals [place] Rate: 76 P: 50 [place]: 138 QRS: 41 QRSD: 101 T: -32 QT: 366 QTc: 412 Interpretive Statements Sinus rhythm Multiple ventricular premature complexes Inferior T-wave abnormality Compared to ECG 12/19/2018 08:21:39 Ventricular premature complex(es) now present Electronically Signed On 02-06-2019 7:54:19 CDT by Sushil Hall [email or web address] ��������������������������������������������� <ELECTRONICALLY SIGNED> ���������������������������������������� By: Sushil Hall MD, [facility] ��������������������������������������������� 02/06/19 0754 2146 2146 Sushil Hall MD, [facility] /EPI
[2019-02-06 08:00] VITALS: BP 102/68
[2019-02-06 08:01] VITALS: BP 102/68
[2019-02-06 08:30] VITALS: BP 95/58
[2019-02-06 08:43] VITALS: BP 109/73
--- NOTE | 2019-02-06 11:32 | NUR ---
Assumed care of pt at approximately 0900. Pt arrived on unit from ER where he presented last night with complaints of chest pain. Pt reports that the pain radiates from L chest up into L neck and shoulder. Pt reports pain began about 2 days ago. At time of arrival pt rated pain 7/10. After administering PRN pain medication, pt reported pain level to be 5/10 on reassessment. Pt has extensive cardiac hx, including STEMI and stent placement. Dr. Fink following. Pt is on RA but does have HX of asthma and, more recently, COPD. Spoke with cardiology PATTERN CUTTER and no further testing is anticipated. Pt not yet progressing toward POC goals. Will continue to monitor and assess.
[2019-02-06 15:28] VITALS: BP 92/60
[2019-02-06 19:30] VITALS: BP 97/53
--- NOTE | 2019-02-07 03:18 | NUR ---
PATIENT IS ALERT AND ORIENTED. PATIENT HAS CHRONIC ANGINA. TEMP RELEIVED WITH NITRO. PATIENT IS UP AD CHARO. PATIENT IS SB ON TELE. [facility] PACS. PATIENT LBM WAS THE 8TH. PATIENT HAS CHRONIC ST ELEVATION. PATIENTS TROP WAS NEGATIVE. PATIENT IS PENDING POSSIBLE DC HOME. PATIENT STATES HE DOESN'T WANT PAIN MEDS SENSE THEY DC HIS MORPHINE. PATIENT IS RESTING COMFORTABLY IM BED. WCM.
[2019-02-07 04:25] VITALS: BP 119/58
[2019-02-07 07:18] VITALS: BP 109/70
[2019-02-07] MEDS ORDERED: IMDUR 60 MG TAB60 M1 PO (08:51)
[2019-02-07 11:42] VITALS: BP 109/70
== END 2019-02-07 12:51 | disposition home or self-care (01) | DRG 303 ==
LOC: ER 21:39 → EROBS 22:50 → 3W 22:50
PROVIDERS: Emergency Medicine; ADMIT Internal Medicine
DX: I25.110 Atherosclerotic heart disease of native coronary artery with unstable angina pectoris (principal); J44.9 Chronic obstructive pulmonary disease, unspecified; H54.62 Unqualified visual loss, left eye, normal vision right eye; E78.5 Hyperlipidemia, unspecified; I10 Essential (primary) hypertension; K21.9 Gastro-esophageal reflux disease without esophagitis; F17.210 Nicotine dependence, cigarettes, uncomplicated; I25.2 Old myocardial infarction; Z95.5 Presence of coronary angioplasty implant and graft; Z95.820 Peripheral vascular angioplasty status with implants and grafts; Z91.018 Allergy to other foods; Z82.49 Family history of ischemic heart disease and other diseases of the circulatory system; Z83.3 Family history of diabetes mellitus; Z84.1 Family history of disorders of kidney and ureter; Z82.3 Family history of stroke; Z71.6 Tobacco abuse counseling; Z79.82 Long term (current) use of aspirin; Z79.899 Other long term (current) drug therapy; Z91.19 Patient's noncompliance with other medical treatment and regimen
CPT/HCPCS: 10879

== ENCOUNTER 2019-02-28 15:56 | Emergency (ER) | payer OTHER ==
[~2019-02-28] VITALS: Ht 180.3 cm; Wt 62.6 kg
[2019-02-28 16:23] LABS: HEMATOCRIT 46.5 % (42.0-52.0); HEMOGLOBIN 15.8 gm/dL (14.0-18.0); MCH 30.5 pg (26.0-34.0); MCHC 34.1 g/dL (28.0-37.0); MCV 89.6 fL (80.0-100.0); PLATELET COUNT 269 thou/uL (150-400); RBC 5.18 mil/uL (4.50-6.00); RDW 14.2 % (10.5-14.5); WBC 6.5 thou/uL (4.0-11.0)
[2019-02-28 16:32] LABS: ANION GAP 6 mmol/L (7-16); BUN 13 mg/dL (7-18); CALCIUM 9.9 mg/dL (8.5-10.1); CHLORIDE 100 mmol/L (98-107); CO2 30 mmol/L (21-32); CREATININE 0.8 mg/dL (0.7-1.3); GLUCOSE 79 mg/dL (74-106); POTASSIUM 4.3 mmol/L (3.5-5.1); SODIUM 136 mmol/L (136-145)
[2019-02-28 16:41] LABS: ALBUMIN 3.9 g/dL (3.4-5.0); SGOT 21 U/L (15-37); SGPT 25 U/L (30-65); TOTAL BILIRUBIN 0.5 mg/dL (<0.1-1.0); TOTAL PROTEIN 7.7 g/dL (6.4-8.2); TROPONIN-I <0.06 ng/mL (<0.06)
[2019-02-28 16:44] LABS: ABSOLUTE NEUTROPHILS 3.6 thou/uL (1.4-8.2)
[2019-02-28 16:45] LABS: ANISOCYTOSIS 1+; POLYCHROMASIA OCCASIONAL
[2019-02-28 21:11] VITALS: BP 127/82
--- NOTE | 2019-03-01 08:09 | EKG ---
[place] [address] [place] [address] ELECTROCARDIOGRAM REPORT Name: LILOJASMINE L Room #: [facility] Flynn#: [id number] ������������������ Admission: 02/28/19 ������������������ Attend Phys: Discharge: 02/28/19 ������������������ Date of : 67 Report #: [id number] ����������������������������������������������������������������� [id number] THIS REPORT FOR: //name// [facility] ED Test Date: 2019-02-28 Test Time: 15:55:58 Pat Name: JASMINE NAGY Department: Room: Gender: M Hospitality Workers: : 1965 Requested By: Clark Vidal Order Number: [id number] MD: Sushil Hall Measurements Intervals [place] Rate: 76 P: 49 [place]: 136 QRS: 56 QRSD: 96 T: -48 QT: 352 QTc: 396 Interpretive Statements Sinus rhythm Atrial and ventricular premature complexes Inferior infarct, age indeterminate Nonspecific T wave abnormality Compared to ECG 02/05/2019 21:46:32 Atrial premature complexes are now present Electronically Signed On 03-01-2019 8:09:28 CDT by Sushil Hall [email or web address] ��������������������������������������������� <ELECTRONICALLY SIGNED> ���������������������������������������� By: Sushil Hall MD, [facility] ��������������������������������������������� 03/01/19 0809 1555 1555 Sushil Hall MD, [facility] /EPI
== END 2019-02-28 21:12 | disposition home or self-care (01) ==
LOC: ER 15:56
PROVIDERS: Emergency Medicine
DX: R07.89 Other chest pain (principal); J44.9 Chronic obstructive pulmonary disease, unspecified; I25.10 Atherosclerotic heart disease of native coronary artery without angina pectoris; I10 Essential (primary) hypertension; I25.2 Old myocardial infarction; K21.9 Gastro-esophageal reflux disease without esophagitis; F17.210 Nicotine dependence, cigarettes, uncomplicated; Z91.018 Allergy to other foods; Z79.82 Long term (current) use of aspirin; Z79.899 Other long term (current) drug therapy; Z98.890 Other specified postprocedural states

== ENCOUNTER 2019-03-27 17:32 | Inpatient (IN) | payer OTHER ==
[~2019-03-27] VITALS: Ht 180.3 cm; Wt 60.3 kg
[2019-03-27 17:32] VITALS: BP 125/92
[2019-03-27] MEDS ORDERED: TOPROL XL25 MG PO (17:48)
[2019-03-27 17:51] LABS: HEMATOCRIT 47.2 % (42.0-52.0); HEMOGLOBIN 16.2 gm/dL (14.0-18.0); MCH 30.8 pg (26.0-34.0); MCHC 34.3 g/dL (28.0-37.0); MCV 89.7 fL (80.0-100.0); PLATELET COUNT 328 thou/uL (150-400); RBC 5.26 mil/uL (4.50-6.00); RDW 14.6 % (10.5-14.5); WBC 8.8 thou/uL (4.0-11.0)
[2019-03-27 17:58] LABS: CALCIUM 9.4 mg/dL (8.5-10.1); POTASSIUM 3.8 mmol/L (3.5-5.1)
[2019-03-27 18:09] LABS: ALBUMIN 4.2 g/dL (3.4-5.0); TOTAL BILIRUBIN 0.9 mg/dL (<0.1-1.0); TOTAL PROTEIN 8.2 g/dL (6.4-8.2)
[2019-03-27 18:10] LABS: TROPONIN-I 6.8 ng/mL (<0.06)
[2019-03-27 18:13] LABS: ABSOLUTE NEUTROPHILS 4.8 thou/uL (1.4-8.2); ATYPICAL LYMPHS 7 %; PLATELET ESTIMATE NORMAL
[2019-03-27 18:19] VITALS: BP 130/82
[2019-03-27 19:47] VITALS: BP 127/73
[2019-03-27 20:10] VITALS: BP 142/94
[2019-03-27 20:44] LABS: PROTIME 9.7 Seconds (9.3-11.4)
[2019-03-27] MEDS ORDERED: IMDUR 60 MG TAB60 M1 PO (23:52)
[2019-03-27] MEDS ORDERED: RANEXA500 MG PO (23:53)
[2019-03-28] VITALS (8 sets, daily range): BP systolic 105–135; BP diastolic 63–87
[2019-03-28 00:47] LABS: CALCIUM 8.8 mg/dL (8.5-10.1); CREATININE 0.9 mg/dL (0.7-1.3); POTASSIUM 3.7 mmol/L (3.5-5.1)
--- NOTE | 2019-03-28 02:49 | NUR ---
ADMISSION FROM ER AROUND 1999. VSS. ASSESSMENT CHARTED. CP PARTIAL RELIEF WITH GTTS AND MORPHINE PER EMAR. MED RECONCIL ADMISSION COMPLETE. HEPARIN AND NITRO DRIP PER PROTOCOL. SEE FLOW SHEET INTERVENTION. NPO. 2 L N/C FOR COMFORT. HS METOPLOL HELD PER ASSEMBLER DC FIELD RING- PT STATES HR WILL DROP TO 30'S AT TIMES WHEN SLEEPING. FOLLOWING TROP. PLAN FOR EKG THIS AM. CARDIO CONSULT CALLED. WILL CONTINUE TO MONITOR AND WITH POC.
--- NOTE | 2019-03-28 17:34 | NUR ---
ASSUMED CARE OF PT AT SHIFT CHANGE. ASSESSMENTS CHARTED. MEDS GIVEN PER SEP. PT C/O LEFT NECK AND SHOULDER PAIN THIS SHIFT, MANAGED WITH IV AND PO PAIN MEDS. PT HAD CARDIAC CATH TODAY- NO INTERVENTION. REFER TO DIGITAL [employer]ERA TECHNICIAN NOTE. RIGHT GROIN DRESSING REMAINS CDI, NO HEMATOMA. O2 SATS WNL ON 2L O2. APPETITE ADEQUATE, 3 HOURS BEDREST COMPLETE. VITAL SIGNS FLOWSHEET DOCUMENTED AND FILED IN PT CHART. DIGITAL [employer]ER[employer] TECHNICIAN TO SEE PT IN AM. DENIES NEEDS AT THIS TIME. WILL CONTINUE TO MONITOR AND FOLLOW POC.
[2019-03-29 00:09] LABS: GLYCOHEMOGLOBIN (HGB A1C) 5.7 % (4.8-5.6)
[2019-03-29 05:01] VITALS: BP 121/64
--- NOTE | 2019-03-29 05:11 | NUR ---
ASSUMED PT CARE AT 1900 WITH NO SIGN OF DISTRESS NOTED IN PT. PT IS ALERT AND ORIENTED. UPON REPORT, IT WAS NOTED THAT PT WAS CONSIDERING LEAVING AMA. PT DECIDED TO STAY. NO FAMILY AT BEDSIDE. PT WENT FOR A CARDIAC CATH WITH NO INTERVENTION. GROIN SITE IS INTACT, NO HEMATOMA OR BLEEDING INDICATED. VITAL SIGNS STABLE. HEART RHYTHM STABLE. ASSESSMENT COMPLETED AND CHARTED. SCHEDULED MEDS ADMINISTERED TO PT. PT TOLERTED PO INTAKE. PT IS STABLE THROUGHOUT THE NIGHT. DENIES ANY FURTHER NEEDS AT THIS TIME.
[2019-03-29 07:55] VITALS: BP 119/76
--- NOTE | 2019-03-29 08:25 | EKG ---
[address] [address] ELECTROCARDIOGRAM REPORT Name: JASMINE NAGY Room #: 209-P ADM IN M.R.#: [id number] ������������������ Admission: 03/27/19 ������������������ Attend Phys: Leida Pérez MD Discharge: ������������������ Date of : 67 Report #: [id number] ����������������������������������������������������������������� [id number] THIS REPORT FOR: //name// [facility] ED Test Date: 2019-03-27 Test Time: 17:41:03 Pat Name: JASMINE NAGY Department: Room: 209 Gender: M Road Passenger Firer: SONIA : 1965 Requested By: Hu Dubois Order Number: [id number] MD: Иван Shepard Measurements Intervals [place] Rate: 83 P: 34 [place]: 134 QRS: 57 QRSD: 91 T: -3 QT: 354 QTc: 416 Interpretive Statements Sinus rhythm RSR' in V1 or V2, probably normal variant Left ventricular hypertrophy ST elev, probable normal early repol pattern Electronically Signed On 03-29-2019 8:25:38 CDT by Иван Shepard [email or web address] ��������������������������������������������� <ELECTRONICALLY SIGNED> ���������������������������������������� By: Иван Shepard MD ��������������������������������������������� 03/29/19 08 40 40 Иван Shepard MD /SAAD
--- NOTE | 2019-03-29 08:25 | EKG ---
[address] [address] ELECTROCARDIOGRAM REPORT Name: JASMINE NAGY Room #: 209-P ADM IN M.R.#: [id number] ������������������ Admission: 03/27/19 ������������������ Attend Phys: Leida Pérez MD Discharge: ������������������ Date of : 67 Report #: [id number] ����������������������������������������������������������������� [id number] THIS REPORT FOR: //name// [facility] ED Test Date: 2019-03-27 Test Time: 17:31:58 Pat Name: JASMINE NAGY Department: Room: 209 Gender: M Programs Director: HYUN : 1965 Requested By: Hu Dubois Order Number: [id number] MD: Иван Shepard Measurements Intervals [place] Rate: 98 P: 37 [place]: 137 QRS: 64 QRSD: 102 T: -44 QT: 340 QTc: 435 Interpretive Statements Sinus rhythm Left ventricular hypertrophy Nonspecific T abnormalities, inferior leads Electronically Signed On 03-29-2019 8:25:24 CDT by Иван Shepard [email or web address] ��������������������������������������������� <ELECTRONICALLY SIGNED> ���������������������������������������� By: Иван Shepard MD ��������������������������������������������� 03/29/19 0825 1731 1731 MD DEBBIE Garcia
--- NOTE | 2019-03-29 08:29 | EKG ---
[address] [address] ELECTROCARDIOGRAM REPORT Name: JASMINE NAGY Room #: 209-P ADM IN M.R.#: [id number] ������������������ Admission: 03/27/19 ������������������ Attend Phys: Leida Pérez MD Discharge: ������������������ Date of : 67 Report #: [id number] ����������������������������������������������������������������� [id number] THIS REPORT FOR: //name// [facility] Test Date: 2019-03-28 Test Time: 07:19:34 Pat Name: JASMINE NAGY Department: Room: 209 P Gender: M Mingle Operator: CYNTHIA : 1965 Requested By: Alda Fernandez Order Number: [id number] MD: Иван Shepard Measurements Intervals [place] Rate: 56 P: 41 [place]: 166 QRS: 49 QRSD: 95 T: 5 QT: 426 QTc: 412 Interpretive Statements Sinus rhythm Ventricular premature complex Left ventricular hypertrophy Abnormal inferior Q waves Compared to ECG 02/28/2019 15:55:58 Electronically Signed On 03-29-2019 8:29:22 CDT by Иван Shepard [email or web address] ��������������������������������������������� <ELECTRONICALLY SIGNED> ���������������������������������������� By: Иван Shepard MD ��������������������������������������������� 03/29/19828 8 8 Иван Shepard MD /SAAD
[2019-03-29] MEDS ORDERED: IMDUR 60 MG TAB60 M1 PO (09:42)
[2019-03-29 15:03] VITALS: BP 119/76
--- NOTE | 2019-03-29 15:53 | NUR ---
ASSUMED CARE AT SHIFT CHANGE, ALERT AND ORIENTED X4. REMAINS IN CHEST DISCOMFORT. VSS. DR RIVERA NOTIFIED. MEDICATION AND INSTRUCTIONS GIVEN, PATIENT VERBALIZED UNDERSTANDING AND PATIENT DISCHARGED HOME.
--- NOTE | 2019-04-08 15:51 | CATHLAB ---
[facility] [address] [place] [address] INVASIVE PROCEDURE REPORT Name: JASMINE NAGY David Room #: 209-P [facility] IN [facility]#: [id number] ������������� Admission: 03/27/19 ������������� Attend Phys: Leida Pérez MD Discharge: ��� 03/29/19 ������������� ��� Date of : 67 Date of Service: 04/08/19 1550 �� Report #: [id number] �������� ��������������������������������������������[id number] THIS REPORT FOR: //name// APPROVED REPORT Study performed: 03/28/2019 12:31:35 Patient Details Patient Status: Out-Patient Room #: The patient is a 54 year-old male Event Personnel Norm Walsl Foil Operator, Cristofer Trimble RN, Huan Viveros RTR Scrub, Favio Michelle Monitor Procedures Performed Art Access - R femoral artery* Left Heart Cath w/or w/o Coronaries [id number] [facility] Indication Positive stress test Procedure Narrative The Right Groin^ was infiltrated with 1% Lidocaine subcutaneous anesthesia. A PINNACLE 4FR Sheath #[id number] sheath was inserted into the RFA^. Coronary angiography was performed using coronary diagnostic catheters. The right coronary system was accessed and visualized with a JR4 catheter. The left coronary system was accessed and visualized with a JL4 catheter. The left ventricle was accessed and visualized with a angled pigtail catheter. Left ventricular/Aortic Valve gradient assessed via catheter pullback. Hemostasis was obtained with manual pressure following sheath removal without any complications. There was no hematoma. Intraoperative Conscious Sedation Sedation start time: 13:51 Case end Time: 14:18 Fluoro Time: 2.70 minutes Dose: DAP 2952.00 cGycm2 Contrast Type and Amount: Omnipaque 55 ml Coronary Angiography The patient's coronary anatomy is right dominant. [facility] [address] [place] [address] INVASIVE PROCEDURE REPORT Name: LILOJASMINE David Room #: 209-P [facility].#: [id number] ������������� Admission: 03/27/19 ������������� Attend Phys: Leida Pérez MD Discharge: ��� 03/29/19 ������������� ��� Date of : 67 Date of Service: 04/08/19 1550 �� Report #: [id number] �������� ��������������������������������������������[id number] Diagnostic Cath Left Main Normal origin and caliber bifurcates left anterior descending left circumflex LAD Moderate caliber type III vessel which has several regions of moderate stenosis. There is no high-grade flow-limiting lesion noted as it courses in the anterior interventricular sulcus looking the apex and terminating in the inferoposterior wall. Previous stent is noted with only minimal restenosis Diagonal 1 Small-caliber vessel with moderate disease proximally but no high-grade lesions Circumflex Nondominant vessel which gives off a early first marginal branches first marginal branch has a long segment of moderate to 70% stenosis proximally. The vessel is less than 1.5 mm in diameter. As the circumflex continues on his lesser small second marginal branch and terminates in the posterior aspect of left ventricle OM1 Small-caliber vessel with a long proximal segment involving a prior stent of approximate 70% stenosis. Does not appear to be flow-limiting. OM2 Small-caliber vessel of moderate irregularities noted Right Coronary Small to moderate caliber vessel normal origin which has moderate proximal blockages noted. It is completely occluded at site of prior occlusion at the acute margin. R PDA Small vessels filling via retrograde filling left to right collaterals Left Ventriculography Left Ventriculography was not performed. Hemodynamics The aortic pressure is 115/67 mmHg with a mean of 69 mmHg. The left ventricular pressure is 115/5 mmHg with a mean of mmHg. The left ventricular end diastolic pressure is 13 mmHg. Conclusion 1. Coronary disease moderate three-vessel coronary disease with totally occluded proximal RCA a with distal filling via collateral 2. Abnormally other than ice and elevate left ventricular end-diastolic pressures Recommendations [facility] [address] [place] [address] INVASIVE PROCEDURE REPORT Name: JASMINE NAGY David Room #: 209-P [facility]#: [id number] ������������� Admission: 03/27/19 ������������� Attend Phys: Leida Pérez MD Discharge: ��� 03/29/19 ������������� ��� Date of : 67 Date of Service: 04/08/19 1550 �� Report #: [id number] �������� ��������������������������������������������[id number] Cardiac Risk Reduction Program Aggressive Medical Therapy ��������������������������������������������� <ELECTRONICALLY SIGNED> ���������������������������������������� By: Norm Walls MD ��������������������������������������������� 04/08/19 1550 1550 1550 Norm Walls MD /INF
== END 2019-03-29 15:50 | disposition home or self-care (01) | DRG 282 ==
LOC: ER 17:32 → 2N 18:47 → EROBS 18:47 → 2N 19:55
PROVIDERS: Emergency Medicine; Nurse Practitioner Family; ADMIT Internal Medicine
PROC: 4A023N7 Measurement of Cardiac Sampling and Pressure, Left Heart, Percutaneous Approach (ICD-10-PCS; principal; 2019-03-28)
PROC: B2111ZZ Fluoroscopy of Multiple Coronary Arteries using Low Osmolar Contrast (ICD-10-PCS; principal; 2019-03-28)
DX: I21.4 Non-ST elevation (NSTEMI) myocardial infarction (principal); J44.9 Chronic obstructive pulmonary disease, unspecified; H54.62 Unqualified visual loss, left eye, normal vision right eye; I25.10 Atherosclerotic heart disease of native coronary artery without angina pectoris; E78.5 Hyperlipidemia, unspecified; K21.9 Gastro-esophageal reflux disease without esophagitis; I10 Essential (primary) hypertension; J45.909 Unspecified asthma, uncomplicated; F17.210 Nicotine dependence, cigarettes, uncomplicated; I25.110 Atherosclerotic heart disease of native coronary artery with unstable angina pectoris; Z82.49 Family history of ischemic heart disease and other diseases of the circulatory system; Z72.89 Other problems related to lifestyle; Z83.3 Family history of diabetes mellitus; Z84.1 Family history of disorders of kidney and ureter; I25.2 Old myocardial infarction; Z95.5 Presence of coronary angioplasty implant and graft; Z82.3 Family history of stroke; Z91.19 Patient's noncompliance with other medical treatment and regimen; Z71.6 Tobacco abuse counseling; Z79.82 Long term (current) use of aspirin; Z79.899 Other long term (current) drug therapy
CPT/HCPCS: 10081; 10194

== ENCOUNTER 2019-04-17 14:09 | Emergency (ER) | payer OTHER ==
[~2019-04-17] VITALS: Ht 180.3 cm; Wt 62.6 kg
[2019-04-17 15:00] LABS: ABSOLUTE NEUTROPHILS 4.2 thou/uL (1.4-8.2); BASOPHILS 0.9 % (0.0-2.0); EOSINOPHILS 0.9 % (0.0-3.0); HEMATOCRIT 46.8 % (42.0-52.0); HEMOGLOBIN 15.7 gm/dL (14.0-18.0); LYMPHOCYTES 26.8 % (24.0-44.0); MCH 30.7 pg (26.0-34.0); MCHC 33.6 g/dL (28.0-37.0); MCV 91.4 fL (80.0-100.0); MONOCYTES 6.3 % (1.0-8.0); PLATELET COUNT 254 thou/uL (150-400); POLYS 65.1 % (36.0-66.0); RBC 5.12 mil/uL (4.50-6.00); RDW 15.2 % (10.5-14.5); WBC 6.5 thou/uL (4.0-11.0)
[2019-04-17 15:13] LABS: CALCIUM 9.1 mg/dL (8.5-10.1); CREATININE 1.1 mg/dL (0.7-1.3); POTASSIUM 4.2 mmol/L (3.5-5.1)
[2019-04-17 15:23] LABS: ALBUMIN 4.1 g/dL (3.4-5.0); TOTAL BILIRUBIN 0.8 mg/dL (<0.1-1.0); TROPONIN-I 0.13 ng/mL (<0.06)
[2019-04-17 15:40] VITALS: BP 125/74
[2019-04-17] MEDS ORDERED: LOPRESSOR50 PO (15:41)
--- NOTE | 2019-04-18 08:10 | EKG ---
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 1965 Requested By: Lu Diaz Order Number: [id number] MD: Иван Shepard Measurements Intervals [place] Rate: 80 P: 51 [place]: 135 QRS: 50 QRSD: 94 T: 5 QT: 369 QTc: 426 Interpretive Statements Sinus rhythm Left ventricular hypertrophy Compared to ECG 03/28/2019 07:19:34 Electronically Signed On 04-18-2019 8:10:45 CDT by Иван Shepard [email or web address] ��������������������������������������������� <ELECTRONICALLY SIGNED> ���������������������������������������� By: Иван Shepard MD ��������������������������������������������� 04/18/19 0810 1410 1410 Иван Shepard MD /SAAD
== END 2019-04-17 15:51 | disposition home or self-care (01) ==
LOC: ER 14:09
PROVIDERS: Nurse Practitioner Family
DX: R07.89 Other chest pain (principal); G89.29 Other chronic pain; F17.210 Nicotine dependence, cigarettes, uncomplicated; J44.9 Chronic obstructive pulmonary disease, unspecified; I10 Essential (primary) hypertension; E78.5 Hyperlipidemia, unspecified; K21.9 Gastro-esophageal reflux disease without esophagitis; I25.10 Atherosclerotic heart disease of native coronary artery without angina pectoris; Z95.5 Presence of coronary angioplasty implant and graft; Z90.89 Acquired absence of other organs; Z91.018 Allergy to other foods

== ENCOUNTER 2019-04-23 21:29 | Emergency (ER) | payer OTHER ==
[~2019-04-23] VITALS: Ht 180.3 cm; Wt 61.2 kg
[~2019-04-23 21:29] MED LIST changes: +LOPRESSOR50 PO
[2019-04-24 00:37] LABS: ABSOLUTE NEUTROPHILS 7.2 thou/uL (1.4-8.2); BASOPHILS 0.7 % (0.0-2.0); EOSINOPHILS 1.2 % (0.0-3.0); HEMATOCRIT 45.2 % (42.0-52.0); HEMOGLOBIN 15.1 gm/dL (14.0-18.0); LYMPHOCYTES 16.7 % (24.0-44.0); MCH 30.7 pg (26.0-34.0); MCHC 33.3 g/dL (28.0-37.0); MCV 92.2 fL (80.0-100.0); PLATELET COUNT 231 thou/uL (150-400); POLYS 76.4 % (36.0-66.0); RDW 15.5 % (10.5-14.5); WBC 9.4 thou/uL (4.0-11.0)
[2019-04-24 00:46] LABS: CALCIUM 9.2 mg/dL (8.5-10.1); CREATININE 0.7 mg/dL (0.7-1.3); POTASSIUM 3.6 mmol/L (3.5-5.1)
[2019-04-24 00:52] LABS: ALBUMIN 3.8 g/dL (3.4-5.0); TOTAL BILIRUBIN 0.6 mg/dL (<0.1-1.0); TOTAL PROTEIN 7.4 g/dL (6.4-8.2); URIC ACID* 4.2 mg/dL (2.6-7.2)
[2019-04-24 01:02] LABS: URINE BILIRUBIN NEGATIVE (Negative); URINE BLOOD NEGATIVE (Negative); URINE CLARITY CLEAR; URINE COLOR YELLOW; URINE GLUCOSE-RANDOM* NEGATIVE (Negative); URINE KETONES NEGATIVE (Negative); URINE LEUKOCYTES-REFLEX NEGATIVE (Negative); URINE NITRITE-REFLEX NEGATIVE (Negative); URINE PROTEIN (DIPSTICK) NEGATIVE (Negative); URINE SPECIFIC GRAVITY 1.025 (1.005-1.035)
[2019-04-24] MEDS ORDERED: PREDNISONE 20 M20 MG PO (01:11)
[2019-04-24] MEDS ORDERED: TRAMADOL 50 MG50 MG PO (01:11)
[2019-04-24 02:06] VITALS: BP 140/89
== END 2019-04-24 02:06 | disposition home or self-care (01) ==
LOC: ER 21:29
PROVIDERS: Emergency Medicine
DX: M25.552 Pain in left hip (principal); J44.9 Chronic obstructive pulmonary disease, unspecified; I25.10 Atherosclerotic heart disease of native coronary artery without angina pectoris; E78.5 Hyperlipidemia, unspecified; I10 Essential (primary) hypertension; K21.9 Gastro-esophageal reflux disease without esophagitis; J45.909 Unspecified asthma, uncomplicated; F17.210 Nicotine dependence, cigarettes, uncomplicated; Z95.5 Presence of coronary angioplasty implant and graft; Z91.018 Allergy to other foods

== ENCOUNTER 2019-05-15 14:51 | Emergency (ER) | payer OTHER ==
[~2019-05-15] VITALS: Ht 180.3 cm; Wt 63.5 kg
[~2019-05-15 14:51] MED LIST changes: +PREDNISONE 20 M20 MG PO; +TRAMADOL 50 MG50 MG PO
[2019-05-15 15:17] LABS: ABSOLUTE NEUTROPHILS 3.2 thou/uL (1.4-8.2); BASOPHILS 1.2 % (0.0-2.0); EOSINOPHILS 2.5 % (0.0-3.0); HEMATOCRIT 45.5 % (42.0-52.0); HEMOGLOBIN 15.2 gm/dL (14.0-18.0); LYMPHOCYTES 26.5 % (24.0-44.0); MCHC 33.4 g/dL (28.0-37.0); MCV 92.9 fL (80.0-100.0); MONOCYTES 7.6 % (1.0-8.0); PLATELET COUNT 240 thou/uL (150-400); POLYS 62.2 % (36.0-66.0); RDW 15.3 % (10.5-14.5); WBC 5.2 thou/uL (4.0-11.0)
[2019-05-15 15:24] LABS: ANION GAP 5 mmol/L (7-16); BUN 8 mg/dL (7-18); CALCIUM 9.1 mg/dL (8.5-10.1); CHLORIDE 102 mmol/L (98-107); CO2 31 mmol/L (21-32); CREATININE 0.9 mg/dL (0.7-1.3); GLUCOSE 107 mg/dL (74-106); POTASSIUM 3.9 mmol/L (3.5-5.1); SODIUM 138 mmol/L (136-145)
[2019-05-15 15:33] LABS: TROPONIN-I <0.06 ng/mL (<0.06)
[2019-05-15] MEDS ORDERED: RANEXA500 MG PO ×2 (16:13→16:15)
[2019-05-15 16:21] VITALS: BP 132/86
--- NOTE | 2019-05-16 08:21 | EKG ---
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 Instructor: [facility] : 1965 Requested By: Clark Vidal Order Number: [id number] MD: Sushil Hall Measurements Intervals [place] Rate: 86 P: 60 [place]: 136 QRS: 75 QRSD: 94 T: -21 QT: 351 QTc: 420 Interpretive Statements Sinus rhythm Ventricular premature complex Left ventricular hypertrophy Borderline T abnormalities, inferior leads Compared to ECG 04/17/2019 14:10:39 Ventricular premature complex(es) now present Electronically Signed On 05-16-2019 8:21:31 CDT by Sushil Hall [email or web address] <ELECTRONICALLY SIGNED> By: Sushil Hall MD, [facility] 05/16/19 0821 144 144 Sushil Hall MD, [facility] /EPI
== END 2019-05-15 16:27 | disposition home or self-care (01) ==
LOC: ER 14:51
PROVIDERS: Emergency Medicine
DX: R07.9 Chest pain, unspecified (principal); I25.119 Atherosclerotic heart disease of native coronary artery with unspecified angina pectoris; I10 Essential (primary) hypertension; E78.5 Hyperlipidemia, unspecified; J44.9 Chronic obstructive pulmonary disease, unspecified; K21.9 Gastro-esophageal reflux disease without esophagitis; J45.909 Unspecified asthma, uncomplicated; F17.210 Nicotine dependence, cigarettes, uncomplicated; Z95.5 Presence of coronary angioplasty implant and graft; Z91.018 Allergy to other foods

== ENCOUNTER 2019-06-12 10:01 | Inpatient (IN) | payer OTHER ==
[~2019-06-12] VITALS: Ht 152.4 cm; Wt 62.4 kg
[2019-06-12 10:06] VITALS: BP 147/92
[2019-06-12 10:35] LABS: ANION GAP 6 mmol/L (7-16); BUN 10 mg/dL (7-18); CALCIUM 9.6 mg/dL (8.5-10.1); CHLORIDE 100 mmol/L (98-107); CO2 31 mmol/L (21-32); CREATININE 0.8 mg/dL (0.7-1.3); GLUCOSE 101 mg/dL (74-106); POTASSIUM 4.3 mmol/L (3.5-5.1); SODIUM 137 mmol/L (136-145)
[2019-06-12 10:36] LABS: HEMOGLOBIN 16.8 gm/dL (14.0-18.0); MCH 31.2 pg (26.0-34.0); MCHC 33.5 g/dL (28.0-37.0); MCV 93.1 fL (80.0-100.0); PLATELET COUNT 267 thou/uL (150-400); RBC 5.37 mil/uL (4.50-6.00); WBC 4.6 thou/uL (4.0-11.0)
[2019-06-12 10:44] LABS: SGOT 22 U/L (15-37); SGPT 16 U/L (30-65); TOTAL BILIRUBIN 0.6 mg/dL (<0.1-1.0); TOTAL PROTEIN 8.1 g/dL (6.4-8.2); TROPONIN-I <0.06 ng/mL (<0.06)
[2019-06-12 11:05] LABS: ABSOLUTE NEUTROPHILS 3.2 thou/uL (1.4-8.2); PLATELET ESTIMATE NORMAL
[2019-06-12 11:33] LABS: APTT 27.1 Seconds (24.5-32.8)
[2019-06-12 12:00] VITALS: BP 141/90
[2019-06-12 15:18] VITALS: BP 151/96
--- NOTE | 2019-06-12 18:02 | NUR ---
RECIEVED ADMISSION FROM ER AT 1600. AWAKE AND ALERT. C/O CHEST PAIN 6/10, STERNUM AND RADIATES TO LEFT NECK. SR ON MONITOR. TROPONIN NEG X 2. NO SOA OR NAUSEA. ADMISSION ASSESSMENT COMPLETED.
--- NOTE | 2019-06-12 19:22 | EKG ---
[place] [address] [email or web address] [place] [address] ELECTROCARDIOGRAM REPORT Name: JASMINE NAGY Room #: 212-P ADM IN M.R.#: [id number] Admission: 06/12/19 Attend Phys: Reyes Gunter MD Discharge: Date of : 67 Report #: [id number] THIS REPORT FOR: //name// [facility] ED Test Date: 2019-06-12 Test Time: 10:05:21 Pat Name: JASMINE NAGY Department: Room: [facility] Gender: M Automation Qtp Tester: : 1965 Requested By: Parker Louis Order Number: [id number] MD: Sushil Hall Measurements Intervals [place] Rate: 76 P: 19 [place]: 144 QRS: 58 QRSD: 93 T: -15 QT: 406 QTc: 457 Interpretive Statements Sinus rhythm RSR' in V1 or V2, probably normal variant Compared to ECG 05/15/2019 14:49:16 RSR' in V1 or V2 now present Ventricular premature complex(es) no longer present T-wave abnormality no longer present Electronically Signed On 06-12-2019 19:22:11 CHARGE HISTOTECHNOLOGIST by Sushil Hall [email or web address] <ELECTRONICALLY SIGNED> By: Sushil Hall MD, FACC 06/12/19 1922 1005 1005 Sushil Hall MD, [facility] /EPI
[2019-06-12 20:00] VITALS: BP 154/86
[2019-06-13] VITALS: BP 157/91
[2019-06-13 04:00] VITALS: BP 141/87
[2019-06-13 04:43] LABS: CHOLESTEROL 166 mg/dL (<200); HDL CHOLESTEROL 74 mg/dL (>40); LDL CHOLESTEROL 70 mg/dL (<100); TC:HDL 2.2 Ratio (Not establshd); TRIGLYCERIDE 111 mg/dL (<150); TROPONIN-I <0.06 ng/mL (<0.06); VLDL 22 mg/dL (<40)
[2019-06-13 06:00] VITALS: BP 141/87
--- NOTE | 2019-06-13 06:37 | NUR ---
PT ALERT AND ORIENTED x4. PT COMPLAIN OF CHEST PAIN 6/10 DESCRIBED GOING DOWN HIS ARM. WHEN ASKED TO BE GIVEN NITROGLYCERIN, PT REFUSED AND ASKED TO RECEIVE MORPHINE FOR PAIN INSTEAD. PT DESAT TO 88% THIS AM. MARIA INES JUAREZ NOTIFED AND ASKED TO CONTINUE TO MONITOR THE PT FOR NOW. PT PUT ON 3L NC and SpO2 97% NOW.
[2019-06-13 11:38] VITALS: BP 108/68
[2019-06-13 15:59] VITALS: BP 105/66
--- NOTE | 2019-06-13 18:29 | NUR ---
ASSESSMENTS AND INTERVENTIOSN DOCCUMENTED. PATIENT RESTING. PAIN MEDICATION GIVEN. THE PLAN OF CARE IS TO CONTINUE TO MONITOR HEART RATE A RHYTHM.
[2019-06-13 19:11] VITALS: BP 121/80
[2019-06-14 03:50] VITALS: BP 114/68
--- NOTE | 2019-06-14 05:04 | NUR ---
ASSUMED PT CARE AT 1900. PT IS ALERT AND ORIENTED. PT IS LAYING IN BED. NO SIGN OF DISTRESS NOTED IN PT. ASSESSMENT COMPLETED AND DOCUMETED. SCHEDULED MEDS ADMINISTERED TO PT. PAIN MED ADMINISTERED FOR CHEST PAIN, NO FURTHER NEEDS REQUIRED AT THIS TIME.
[2019-06-14 05:09] LABS: HEMATOCRIT 39.9 % (42.0-52.0); MCH 31.6 pg (26.0-34.0); MCHC 33.5 g/dL (28.0-37.0); MCV 94.3 fL (80.0-100.0); RBC 4.23 mil/uL (4.50-6.00); RDW 15.9 % (10.5-14.5); WBC 7.3 thou/uL (4.0-11.0)
[2019-06-14 05:25] LABS: HEMOGLOBIN 13.4 gm/dL (14.0-18.0)
[2019-06-14 05:33] LABS: CALCIUM 8.8 mg/dL (8.5-10.1); CREATININE 0.7 mg/dL (0.7-1.3); POTASSIUM 4.1 mmol/L (3.5-5.1)
[2019-06-14 05:42] LABS: AMP/METHAMP Negative (Negative); BARBITURATES Negative (Negative); BENZODIAZEPINES Negative (Negative); COCAINE Negative (Negative); METHADONE Negative (Negative); OPIATES POSITIVE (Negative); PCP Negative (Negative)
[2019-06-14 08:00] VITALS: BP 112/71
[2019-06-14 12:00] VITALS: BP 115/71
[2019-06-14 16:14] VITALS: BP 114/70
--- NOTE | 2019-06-14 16:56 | EKG ---
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: Noelle FLYNN : 1965 Requested By: Yolande Martínez Order Number: [id number] MD: Sushil Hall Measurements Intervals [place] Rate: 64 P: -5 ND: 155 QRS: 38 QRSD: 105 T: -9 QT: 431 QTc: 445 Interpretive Statements Sinus rhythm Probable left ventricular hypertrophy Probable inferior infarct, age indeterminate Compared to ECG 06/12/2019 10:05:21 no significant change was found Electronically Signed On 06-14-2019 16:55:56 YARD HAND by Sushil Hall [email or web address] <ELECTRONICALLY SIGNED> By: Sushil Hall MD, [facility] 06/14/19 [phone] Sushil Hall MD, [facility] /EPI
--- NOTE | 2019-06-14 17:05 | NUR ---
PT CARE ASSUMED APPROX 0700. ASSESSMENTS CHARTED. PT DENIES SOA. REPORTS ADEQUATE PAIN MANAGEMENT OF LEFT SHOULDER. UP WITH STEADY GAIT. VSS. TOLERATING POC. COMPLETED DIAGNOSTIC STUDIES WITHOUT ISSUE. DENIES QUESTIONS OR CONCERNS REGARDING POC. TOLERATING POC. NO DISTRESS NOTED.
[2019-06-14 19:37] VITALS: BP 141/77
[2019-06-15 04:12] VITALS: BP 123/69
--- NOTE | 2019-06-15 05:30 | NUR ---
ASSUMED PT CARE AT 1900. PT IS ALERT AND ORIENTED. NO SIGN OF DISTRESS NOTED. PT IS STABLE. PT COMPLAINS OF PAIN. PAIN MED ADMINISTERED TO PT REQUESTED. ASSESSMENT COMPLETED AND DOCUMENTED. VITAL SIGNS STABLE. SCHEDULED MEDS ADMINISTERED TO PT. IV SITE ROTATED. DENIES ANY FURTHER NEEDS AT THIS TIME.
[2019-06-15 07:30] VITALS: BP 129/75
[2019-06-15 11:04] VITALS: BP 129/75
[2019-06-15 11:13] VITALS: BP 137/79
--- NOTE | 2019-06-15 11:40 | NUR ---
TINGLING SHOULDER DISCOMFORT /, DENIES ANY OTHER CARDIAC SIGNS/SYMPTOMS. SB-50'S. WHEN PT AWARE THAT HE WAS GOING HOME, HE WANTED TO GO HOME SOON POSSIBLE. DISCHARGE INSTRUCTIONS GIVEN ALONG WITH PLAN FOR PT TO SET FOLLOW UP APPT WITH DR. RIVERA. DECLINED AM MEDS.
== END 2019-06-15 12:22 | disposition home or self-care (01) | DRG 206 ==
LOC: ER 10:01 → EROBS 12:19 → 2N 12:19
PROVIDERS: Emergency Medicine; Nurse Practitioner; ADMIT Hospitalist
DX: M94.0 Chondrocostal junction syndrome [Tietze] (principal); R07.89 Other chest pain; K21.9 Gastro-esophageal reflux disease without esophagitis; J44.9 Chronic obstructive pulmonary disease, unspecified; H54.62 Unqualified visual loss, left eye, normal vision right eye; I25.10 Atherosclerotic heart disease of native coronary artery without angina pectoris; E78.5 Hyperlipidemia, unspecified; I10 Essential (primary) hypertension; F17.210 Nicotine dependence, cigarettes, uncomplicated; K29.90 Gastroduodenitis, unspecified, without bleeding; K44.9 Diaphragmatic hernia without obstruction or gangrene; Z79.82 Long term (current) use of aspirin; I25.2 Old myocardial infarction; Z95.820 Peripheral vascular angioplasty status with implants and grafts; Z82.49 Family history of ischemic heart disease and other diseases of the circulatory system; Z83.3 Family history of diabetes mellitus; Z82.3 Family history of stroke; Z71.6 Tobacco abuse counseling; Z79.899 Other long term (current) drug therapy
CPT/HCPCS: 10081

== ENCOUNTER 2019-07-22 16:55 | Emergency (ER) | payer OTHER ==
[~2019-07-22] VITALS: Ht 180.3 cm; Wt 63.5 kg
[2019-07-22 17:34] LABS: BASOPHILS 0.8 % (0.0-2.0); EOSINOPHILS 1.4 % (0.0-3.0); HEMATOCRIT 45.2 % (42.0-52.0); HEMOGLOBIN 15.3 gm/dL (14.0-18.0); LYMPHOCYTES 19.4 % (24.0-44.0); MCH 31.8 pg (26.0-34.0); MCHC 33.8 g/dL (28.0-37.0); MONOCYTES 9.4 % (1.0-8.0); PLATELET COUNT 285 thou/uL (150-400); RBC 4.81 mil/uL (4.50-6.00); RDW 15.1 % (10.5-14.5); WBC 5.8 thou/uL (4.0-11.0)
[2019-07-22 17:39] LABS: ANION GAP 5 mmol/L (7-16); BUN 11 mg/dL (7-18); CALCIUM 9.3 mg/dL (8.5-10.1); CHLORIDE 99 mmol/L (98-107); CO2 33 mmol/L (21-32); CREATININE 0.8 mg/dL (0.7-1.3); GLUCOSE 87 mg/dL (74-106); POTASSIUM 3.8 mmol/L (3.5-5.1); SODIUM 137 mmol/L (136-145)
[2019-07-22 17:49] LABS: SGOT 18 U/L (15-37); SGPT 29 U/L (30-65); TOTAL BILIRUBIN 0.5 mg/dL (<0.1-1.0); TOTAL PROTEIN 7.9 g/dL (6.4-8.2); TROPONIN-I <0.06 ng/mL (<0.06)
[2019-07-22] MEDS ORDERED: NORCO 10-325 T1 EACH PO (20:00)
[2019-07-22 20:27] VITALS: BP 144/95
--- NOTE | 2019-07-26 12:49 | EKG ---
[address] [address] ELECTROCARDIOGRAM REPORT Name: JASMINE NAGY Room #: [facility] Flynn#: [id number] Admission: 07/22/19 Attend Phys: Discharge: 07/22/19 Date of : 67 Report #: [id number] THIS REPORT FOR: //name// [facility] ED Test Date: 2019-07-22 Test Time: 16:54:34 Pat Name: JASMINE NAGY Department: Room: Gender: Radio Recorder: SONIA : 1965 Requested By: René Sosa Order Number: [id number] MD: Иван Shepard Measurements Intervals [place] Rate: 92 P: 36 [place]: 140 QRS: 58 QRSD: 98 T: -21 QT: 352 QTc: 436 Interpretive Statements Sinus rhythm Ventricular premature complex Left ventricular hypertrophy Inferior infarct, age indeterminate Compared to ECG 06/13/2019 08:46:00 Ventricular premature complex(es) now present Myocardial infarct finding still present Electronically Signed On 07-26-2019 12:48:48 SUPPORT COORDINATOR by Иван Shepard [email or web address] <ELECTRONICALLY SIGNED> By: Иван Shepard MD 07/26/19 1248 [id number] 1654 Иван Shepard MD /EPI
== END 2019-07-22 20:25 | disposition home or self-care (01) ==
LOC: ER 16:55
PROVIDERS: Physician Assistant
DX: R07.9 Chest pain, unspecified (principal); I10 Essential (primary) hypertension; I25.10 Atherosclerotic heart disease of native coronary artery without angina pectoris; E78.5 Hyperlipidemia, unspecified; J44.9 Chronic obstructive pulmonary disease, unspecified; J45.909 Unspecified asthma, uncomplicated; K21.9 Gastro-esophageal reflux disease without esophagitis; F17.210 Nicotine dependence, cigarettes, uncomplicated; Z95.5 Presence of coronary angioplasty implant and graft; Z91.018 Allergy to other foods

== ENCOUNTER 2019-12-10 13:53 | Emergency (ER) | payer OTHER ==
[~2019-12-10] VITALS: Ht 180.3 cm; Wt 67.1 kg
[~2019-12-10 13:53] MED LIST changes: +NORCO 10-325 T1 EACH PO
[2019-12-10 14:22] LABS: ABSOLUTE NEUTROPHILS 4.9 thou/uL (1.4-8.2); BASOPHILS 1.3 % (0.0-2.0); EOSINOPHILS 1.9 % (0.0-3.0); HEMATOCRIT 49.1 % (42.0-52.0); HEMOGLOBIN 16.6 gm/dL (14.0-18.0); LYMPHOCYTES 20.2 % (24.0-44.0); MCH 31.1 pg (26.0-34.0); MCHC 33.9 g/dL (28.0-37.0); MCV 91.9 fL (80.0-100.0); MONOCYTES 2.8 % (1.0-8.0); PLATELET COUNT 317 thou/uL (150-400); POLYS 73.8 % (36.0-66.0); RBC 5.35 mil/uL (4.50-6.00); WBC 6.6 thou/uL (4.0-11.0)
[2019-12-10 14:32] LABS: ANION GAP 8 mmol/L (7-16); BUN 11 mg/dL (7-18); CHLORIDE 98 mmol/L (98-107); CO2 28 mmol/L (21-32); CREATININE 1.1 mg/dL (0.7-1.3); GLUCOSE 167 mg/dL (74-106); POTASSIUM 3.4 mmol/L (3.5-5.1); SODIUM 134 mmol/L (136-145)
[2019-12-10 14:43] LABS: ALBUMIN 3.9 g/dL (3.4-5.0); LIPASE 183 U/L (73-393); SGOT 26 U/L (15-37); SGPT 30 U/L (30-65); TOTAL BILIRUBIN 0.5 mg/dL (<0.1-1.0); TOTAL PROTEIN 7.7 g/dL (6.4-8.2); TROPONIN-I <0.06 ng/mL (<0.06)
[2019-12-10 16:30] VITALS: BP 116/75
--- NOTE | 2019-12-11 08:04 | EKG ---
[facility] [place] [address] ELECTROCARDIOGRAM REPORT Name: JASMINE NAGY Room #: DEP 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[facility] 1965 Requested By: Lu Diaz Order Number: [id number] MD: Sushil Hall Measurements Intervals [place] Rate: 83 P: 52 [place]: 151 QRS: 51 QRSD: 101 T: 15 QT: 380 QTc: 447 Interpretive Statements Sinus rhythm with occasional premature ventricular complexes Inferior infarct, age indeterminate Compared to ECG 07/22/2019 16:54:34 Inferior Q waves are more prominent Electronically Signed On 12-11-2019 8:02:34 CDT by Sushil Hall [email or web address] <ELECTRONICALLY SIGNED> By: Sushil Hall MD, [facility] 12/11/19 0802 140 140 Sushil Hall MD, [facility] /EPI
== END 2019-12-10 16:31 | disposition home or self-care (01) ==
LOC: ER 13:53
PROVIDERS: Nurse Practitioner Family
DX: I20.9 Angina pectoris, unspecified (principal); J44.9 Chronic obstructive pulmonary disease, unspecified; E78.5 Hyperlipidemia, unspecified; J45.909 Unspecified asthma, uncomplicated; K21.9 Gastro-esophageal reflux disease without esophagitis; I10 Essential (primary) hypertension; Z98.890 Other specified postprocedural states; Z79.82 Long term (current) use of aspirin; Z79.899 Other long term (current) drug therapy; Z91.018 Allergy to other foods